=== PATIENT | female | born 1960 | race Caucasian/White ===

== ENCOUNTER 2018-08-07 09:10 | Outpatient (REF) | payer OTHER, SELFPAY | END 2018-08-07 09:30 | LOC: LBN 09:10 | PROVIDERS: PCP Nurse Practitioner; Visit Provider Nurse Practitioner | DX: N39.0 Urinary tract infection, site not specified (principal) | CPT/HCPCS: 87086 ==

== ENCOUNTER 2018-08-09 11:31 | Outpatient (CLI) | payer OTHER, SELFPAY ==
--- NOTE | 2018-08-09 09:20 | DI.CT_ITS ---
SYMPTOM/DIAGNOSIS: PELVIC PAIN, HEMATURIA, H/O RENAL CALCULI, R10.2, Z87.442, R31.[address]: Routine examination was performed. Comparison is made with 03/11/16. Scarring or atelectasis is seen in the lung bases.There is again seen a well circumscribed nodule in the left lower lobe laterally. This was present on the prior examination from 10/18/15. Lack of IV contrast does limit evaluation of the abdominal and pelvic organs. The unenhanced liver, spleen, gallbladder, bile ducts, pancreas and adrenal glands are unremarkable. There is a 2 mm. non obstructing stone in the mid pole of the right kidney. No ureterolithiasis or hydronephrosis is identified. In the left kidney, there is a 2 mm. non obstructing stone seen in the mid pole. There is a rounded density seen in the lower pole of the left kidney with peripheral calcifications. This is unchanged compared to prior examinations including one done 02/05/14. There is a new 0.4 cm. calcification in the left pelvis proximal to the ureterovesicular junction which may represent a distal ureteral stone. No significant hydronephrosis is present. The urinary bladder is intact. The reproductive organs are unremarkable. There is atherosclerosis of the abdominal aorta but no aneurysmal dilatation is present. No significant abdominal or pelvic adenopathy, ascites or pneumoperitoneum is present. There is diverticulosis of the colon but no evidence of acute diverticulitis. No findings to suggest an acute appendicitis are present. No evidence of bowel obstruction or inflammation is seen. Age appropriate degenerative changes are seen in the spine. IMPRESSION: 1. 0.4 cm. calcification in the left pelvis just proximal to the ureterovesicular junction suspicious for a distal ureteral stone. No significant hydronephrosis is seen. 2. Bilateral nephrolithiasis. 3. Colonic diverticulosis but no evidence of acute diverticulitis.
== END 2018-08-09 11:51 ==
PROVIDERS: PCP Nurse Practitioner; Visit Provider Nurse Practitioner
DX: R10.2 Pelvic and perineal pain (principal); N20.1 Calculus of ureter; N20.0 Calculus of kidney; K57.30 Diverticulosis of large intestine without perforation or abscess without bleeding; Z87.442 Personal history of urinary calculi
CPT/HCPCS: 74176

== ENCOUNTER 2018-08-24 21:54 | Emergency (ER) | payer OTHER, SELFPAY ==
[2018-08-24 21:59] VITALS: BP 167/94; PULSE 94; RESP 20; TEMP 37.2; O2SAT 97
--- NOTE | 2018-08-24 22:15 | W.ED.GENAD ---
Discharge Plan Disposition Patient Disposition: HOME Condition: Good Discharge Details Chief Complaint: Urinary Clinical Impression: Left ureteral calculus Primary Care Provider: Neela Orantes ED Provider: Cash Moralez Home Meds and New Rx's Prescriptions: New phenazopyridine [Pyridium] 100 mg tablet 100 mg PO TID Qty: 6 RF: 0 Continued Flovent HFA 110 mcg/actuation HFA aerosol inhaler 220 mcg Inhalation BID Qty: 3 RF: 3 albuterol sulfate 90 mcg/actuation HFA aerosol inhaler 2 puff Inhalation Q4H PRN Qty: 1 RF: 12 ketorolac 10 mg tablet RF: 0 No Action cbd oil RF: 0 Discharge Instructions Additional Instructions: Please berry picker your Toradol prescription and get your Pyridium prescription filled. Do not take other nonsteroidal medications while taking Toradol. Contact Dr. Samayoa's office in the morning. Return to the ED for increasing pain, vomiting, fever. Referrals: Renato Samayoa MD [ [facility] STAFF PHYSICIAN] - Medical Decision Making Patient presenting with symptoms likely related to her known kidney stone. She is not febrile. She has urinary urgency, frequency, suprapubic pressure leading to nausea. She does not want narcotics or antiemetics. She did agree to trying Pyridium to see if it helps with the urinary symptoms. Urinalysis was obtained. Urinalysis x2 attempts were contaminated. Given that she is not febrile and looks well I doubt that she has an infection. She does not want a straight cath urine. Pyridium did not help a lot. She agreed to an injection of Toradol. She will then berry picker prescription for Pyridium and Toradol tomorrow and contact urology again in the morning. Medical Records Medical records reviewed: Yes I reviewed the patient's medical records. Lab Data Lab results reviewed: Yes I reviewed the patient's lab results. HPI General Mode of arrival: ambulatory. Date/Time Provider Initiated Documentation: 08/24/18 22:12. Limitations to Documentation: no limitations. Information obtained by: patient. HPI Narrative: Patient presents to ED with complaints of suprapubic pressure, frequent urination, some left flank discomfort. She is also having nausea and dry heaves but not vomiting. She has a known left distal ureteral stone. She is supposed to be going to the OR next week. The last few days that pressure and frequent urination has really been bothering her. She has been using nonsteroidals and was supposed to be picking up Toradol from the pharmacy that urology prescribed but has not picked it up. She denies any fever. She feels that if she can get the discomfort to go away the nausea will go away. She does not want narcotics or antiemetics because they messed with her head. Related Data Home Medications Medication Instructions Recorded Confirmed Cbd Oil 01/09/18 08/17/18 albuterol sulfate HFA 90 2 puff INHALATION Q4H PRN #1 unit 08/07/18 08/24/18 mcg/actuation aerosol inhaler fluticasone 110 mcg/actuation HFA 220 mcg INHALATION BID #3 inhaler 08/07/18 08/24/18 aerosol inhaler ketorolac 08/25/18 08/25/18 phenazopyridine [Pyridium] 100 mg PO TID #6 tab 08/25/18 Previous Rx's Medication Instructions Recorded albuterol sulfate HFA 90 2 puff INHALATION Q4H PRN #1 unit 08/07/18 mcg/actuation aerosol inhaler fluticasone 110 mcg/actuation HFA 220 mcg INHALATION BID #3 inhaler 08/07/18 aerosol inhaler phenazopyridine [Pyridium] 100 mg PO TID #6 tab 08/25/18 Allergies Allergy/AdvReac Type Severity Reaction Status Date / Time Sulfa (Sulfonamide Allergy Unknown Rash Unverified 08/24/18 22:05 Antibiotics) morphine AdvReac Severe Psychosis Unverified 08/24/18 22:05 codeine AdvReac Intermediate jittery Unverified 08/24/18 22:05 General Stated Complaint: Urinary KLARISSA: 3 Review of Systems Constitutional Denies chills, Denies fever(s), Denies headache(s), Denies malaise and Denies weakness ENT Denies headache(s) and Denies neck pain Cardiovascular Denies chest pain, Denies diaphoresis, Denies syncope, Denies edema, Denies lightheadedness and Denies dyspnea Respiratory Denies cough, Denies dyspnea and Denies wheezing Gastrointestinal Reports abdominal pain, Reports nausea and Denies vomiting Genitourinary Reports urinary frequency, Reports dysuria, Reports pelvic pain (suprapubic), Reports flank pain and Reports urinary urgency Musculoskeletal Reports back pain, Denies neck pain and Denies numbness Integumentary/Breasts Denies erythema and Denies rash Neurologic Denies syncope, Denies headache(s), Denies numbness and Denies weakness Allergic/Immunologic Denies wheezing [facility] Medical History Mild intermittent reactive airway disease (Chronic 07/08/15) Nephrolithiasis (Chronic) GERD (gastroesophageal reflux disease) (Chronic) Surgical History H/O breast augmentation (Inactive) History of section (Inactive) Social History Smoking/Tobacco Use Status: Current every day Exam Const General: cooperative, uncomfortable and no acute distress Orientation: alert and oriented x3 HENMT Head: normocephalic and atraumatic Neck Neck: normal visual inspection, trachea midline and supple Resp Effort & Inspection: normal respiratory effort Auscultation: clear to auscultation bilaterally Cardio Rate: regular rate Rhythm: regular rhythm Heart Sounds: S1 normal and S2 normal GI Inspection: normal to inspection Palpation: soft, no guarding and nontender Back/Spine/Pelvis Back: no CVA tenderness Neuro General: alert, oriented x3, no focal motor deficits and CN's II-XI intact bilaterally Extrem General: no clubbing, cyanosis or edema Course Vital Signs Temperature 98.9 F 08/24/18 21:59 Pulse 94 H 08/24/18 21:59 Respiratory Rate 20 08/24/18 21:59 Blood Pressure 167/94 H 08/24/18 21:59 Pulse Oximetry 97 08/24/18 21:59 Temperature 98.9 F 08/24/18 21:59 Temperature Source Temporal Artery Scan 08/24/18 21:59 Pulse 94 H 08/24/18 21:59 Respiratory Rate 20 08/24/18 21:59 Respiratory Effort Non-Labored 08/24/18 21:59 Blood Pressure 167/94 H 08/24/18 21:59 Blood Pressure Position Sitting 08/24/18 21:59 Pulse Oximetry 97 08/24/18 21:59 Oxygen Delivery Method Room Air 08/24/18 21:59 Oxygen Flow Rate 0 08/24/18 21:59 Pain Level 7 08/24/18 22:05
[2018-08-24 22:31] LABS: Bilirubin Negative (Negative); Blood Small (Negative); Clarity Clear; Glucose Negative (Negative); Ketones Negative (Negative); Leukocyte Esterase Small (Negative); Nitrite Negative (Negative); Urobilinogen 0.2 EU/dL (Up TO 0.2)
[2018-08-24 22:45] LABS: Bacteria Few HPF (Negative); C & S Indicated? No/Sq. Contamination; Casts Negative LPF (Negative); Crystals Negative HPF (Negative); Epithelial Cells Many HPF (Negative); Mucus Negative (Negative); Other Cells Few Renal (Negative); WBC 20-50 HPF (0-5)
[2018-08-24] MEDS: Phenazopyridine 200 MG TAB PO (23:21)
[2018-08-24 23:34] LABS: Bacteria Moderate HPF (Negative); C & S Indicated? No/Sq. Contamination; Casts Negative LPF (Negative); Crystals Negative HPF (Negative); Epithelial Cells Many HPF (Negative); Mucus Negative (Negative); Other Cells Few Renal (Negative); WBC 20-50 HPF (0-5)
--- NOTE | 2018-08-24 23:58 | ED.GENADUL_ITS ---
Discharge Plan Disposition Patient Disposition: HOME Condition: Good Discharge Details Chief Complaint: Urinary Clinical Impression: Left ureteral calculus Primary Care Provider: Neela Orantes ED Provider: Cash Moralez Home Meds and New Rx's Prescriptions: New phenazopyridine [Pyridium] 100 mg tablet 100 mg PO TID Qty: 6 RF: 0 Continued Flovent HFA 110 mcg/actuation HFA aerosol inhaler 220 mcg Inhalation BID Qty: 3 RF: 3 albuterol sulfate 90 mcg/actuation HFA aerosol inhaler 2 puff Inhalation Q4H PRN Qty: 1 RF: 12 ketorolac 10 mg tablet RF: 0 No Action cbd oil RF: 0 Discharge Instructions Additional Instructions: Please machine operator picker your Toradol prescription and get your Pyridium prescription filled. Do not take other nonsteroidal medications while taking Toradol. Contact Dr. Samayoa's office in the morning. Return to the ED for increasing pain, vomiting, fever. Referrals: Renato Samayoa MD [ [facility] STAFF PHYSICIAN] - Medical Decision Making Patient presenting with symptoms likely related to her known kidney stone. She is not febrile. She has urinary urgency, frequency, suprapubic pressure leading to nausea. She does not want narcotics or antiemetics. She did agree to trying Pyridium to see if it helps with the urinary symptoms. Urinalysis was obtained. Urinalysis x2 attempts were contaminated. Given that she is not febrile and looks well I doubt that she has an infection. She does not want a straight cath urine. Pyridium did not help a lot. She agreed to an injection of Toradol. She will then machine operator picker prescription for Pyridium and Toradol tomorrow and contact urology again in the morning. Medical Records Medical records reviewed: Yes I reviewed the patient's medical records. Lab Data Lab results reviewed: Yes I reviewed the patient's lab results. HPI General Mode of arrival: ambulatory . Date/Time Provider Initiated Documentation: 08/24/18 22:12 . Limitations to Documentation: no limitations . Information obtained by: patient . HPI Narrative: Patient presents to ED with complaints of suprapubic pressure, frequent urination, some left flank discomfort. She is also having nausea and dry heaves but not vomiting. She has a known left distal ureteral stone. She is supposed to be going to the OR next week. The last few days that pressure and frequent urination has really been bothering her. She has been using nonsteroidals and was supposed to be picking up Toradol from the pharmacy that urology prescribed but has not picked it up. She denies any fever. She feels that if she can get the discomfort to go away the nausea will go away. She does not want narcotics or antiemetics because they messed with her head. Related Data Home Medications Medication Instructions Recorded Confirmed Cbd Oil 01/09/18 08/17/18 albuterol sulfate HFA 90 2 puff INHALATION Q4H PRN #1 unit 08/07/18 08/24/18 mcg/actuation aerosol inhaler fluticasone 110 mcg/actuation HFA 220 mcg INHALATION BID #3 inhaler 08/07/18 08/24/18 aerosol inhaler ketorolac 08/25/18 08/25/18 phenazopyridine [Pyridium] 100 mg PO TID #6 tab 08/25/18 Previous Rx's Medication Instructions Recorded albuterol sulfate HFA 90 2 puff INHALATION Q4H PRN #1 unit 08/07/18 mcg/actuation aerosol inhaler fluticasone 110 mcg/actuation HFA 220 mcg INHALATION BID #3 inhaler 08/07/18 aerosol inhaler phenazopyridine [Pyridium] 100 mg PO TID #6 tab 08/25/18 Allergies Allergy/AdvReac Type Severity Reaction Status Date / Time Sulfa (Sulfonamide Allergy Unknown Rash Unverified 08/24/18 22:05 Antibiotics) morphine AdvReac Severe Psychosis Unverified 08/24/18 22:05 codeine AdvReac Intermediate jittery Unverified 08/24/18 22:05 General Stated Complaint: Urinary KLARISSA: 3 Review of Systems Constitutional Denies chills, Denies fever(s), Denies headache(s), Denies malaise and Denies weakness ENT Denies headache(s) and Denies neck pain Cardiovascular Denies chest pain, Denies diaphoresis, Denies syncope, Denies edema, Denies lightheadedness and Denies dyspnea Respiratory Denies cough, Denies dyspnea and Denies wheezing Gastrointestinal Reports abdominal pain, Reports nausea and Denies vomiting Genitourinary Reports urinary frequency, Reports dysuria, Reports pelvic pain (suprapubic), Reports flank pain and Reports urinary urgency Musculoskeletal Reports back pain, Denies neck pain and Denies numbness Integumentary/Breasts Denies erythema and Denies rash Neurologic Denies syncope, Denies headache(s), Denies numbness and Denies weakness Allergic/Immunologic Denies wheezing [facility] Medical History Mild intermittent reactive airway disease (Chronic 07/08/15) Nephrolithiasis (Chronic) GERD (gastroesophageal reflux disease) (Chronic) Surgical History H/O breast augmentation (Inactive) History of section (Inactive) Social History Smoking/Tobacco Use Status: Current every day Exam Const General: cooperative, uncomfortable and no acute distress Orientation: alert and oriented x3 HENMT Head: normocephalic and atraumatic Neck Neck: normal visual inspection, trachea midline and supple Resp Effort & Inspection: normal respiratory effort Auscultation: clear to auscultation bilaterally Cardio Rate: regular rate Rhythm: regular rhythm Heart Sounds: S1 normal and S2 normal GI Inspection: normal to inspection Palpation: soft, no guarding and nontender Back/Spine/Pelvis Back: no CVA tenderness Neuro General: alert, oriented x3, no focal motor deficits and CN's II-XI intact bilaterally Extrem General: no clubbing, cyanosis or edema Course Vital Signs Temperature 98.9 F 08/24/18 21:59 Pulse 94 H 08/24/18 21:59 Respiratory Rate 20 08/24/18 21:59 Blood Pressure 167/94 H 08/24/18 21:59 Pulse Oximetry 97 08/24/18 21:59 Temperature 98.9 F 08/24/18 21:59 Temperature Source Temporal Artery Scan 08/24/18 21:59 Pulse 94 H 08/24/18 21:59 Respiratory Rate 20 08/24/18 21:59 Respiratory Effort Non-Labored 08/24/18 21:59 Blood Pressure 167/94 H 08/24/18 21:59 Blood Pressure Position Sitting 08/24/18 21:59 Pulse Oximetry 97 08/24/18 21:59 Oxygen Delivery Method Room Air 08/24/18 21:59 Oxygen Flow Rate 0 08/24/18 21:59 Pain Level 7 08/24/18 22:05
== END 2018-08-25 00:34 | disposition home or self-care (01) ==
PROVIDERS: Emergency Provider Emergency Medicine; PCP Nurse Practitioner
DX: N21.0 Calculus in bladder (principal); Z87.442 Personal history of urinary calculi
CPT/HCPCS: 96372; 99284; 81003; 81015; J1885

== ENCOUNTER 2018-08-31 15:08 | Observation (INO) | payer OTHER, SELFPAY ==
[2018-08-31] VITALS (16 sets, daily range): BP systolic 104–167; BP diastolic 64–101; PULSE 56–83; RESP 11–18; TEMP 36.4–37.9; O2SAT 93–97
[2018-08-31] MEDS: Lactated Ringers 1,000 ML 80 ML IV ×2 (09:18→16:47)
[2018-08-31] MEDS: Lidocaine 2% Jelly 6 ML SYR (11:01)
[2018-08-31] MEDS: Omnipaque 300 MG/ML 50 ML BTL (11:05)
--- NOTE | 2018-08-31 11:19 | W.PM.DSUDISC ---
Discharge Plan Disposition Patient Disposition: HOME Condition: Stable Discharge Details Reason For Visit: (L) URETERAL STONE Attending Provider: Renato Samayoa Primary Care Provider: Neela Orantes Home Meds and New Rx's Prescriptions: No Action phenazopyridine [Pyridium] 200 mg tablet 200 mg PO TID PRN (Reason: pain) Qty: 14 RF: 0 cbd oil 1 ea Topical PRN PRNRF: 0 Flovent HFA 110 mcg/actuation HFA aerosol inhaler 220 mcg Inhalation BID Qty: 3 RF: 3 albuterol sulfate 90 mcg/actuation HFA aerosol inhaler 2 puff Inhalation Q4H PRN Qty: 1 RF: 12 ketorolac 10 mg tablet 10 mg PO Q6H PRN PRNRF: 0 sodium chloride 3 % Mist 3 spray Intranasal PRN PRNRF: 0 Discharge Instructions Additional Instructions: F/U 4 to 6 weeks with renal US Stand Alone Forms: [facility] ([facility]) Activity:: Activity as Tolerated Diet:: As Tolerated Discharge Orders Discharge Orders: Discharge Order (Routine); Ordered 08/31/18 Ordered By: Renato Samayoa DS: Diagnosis Discharge Diagnosis (1) Left ureteral stone: Status: Acute
--- NOTE | 2018-08-31 11:20 | DI.RAD_ITS ---
SYMPTOMS/DIAGNOSIS: LT URETERAL STONE RETROGRADE IN OR: Fluoroscopy Time: 8.7 sec, 1.22 mGy Fluoroscopy was utilized by Dr. Samayoa during retrograde evaluation of the left renal collecting system. Please refer to the procedure report for complete details.
[2018-08-31] MEDS: Phenazopyridine 200 MG TAB PO ×2 (11:48→19:42)
[2018-08-31] MEDS: Tamsulosin 0.4 MG CAPCR PO (12:18)
[2018-08-31] MEDS: fentaNYL 100 MCG/2 ML VIAL ×2 (12:25→12:30)
[2018-08-31] MEDS: fentaNYL 100 MCG/2 ML VIAL 50 MCG IVP (13:28)
--- NOTE | 2018-08-31 15:32 | HPE_ITS ---
Date of service: 08/31/18 Time of Service: 15:21 Assessment and Plan (1) Left ureteral stone: Current visit: Yes Status: Acute We reviewed her hospitalization from 4 years ago, and it looks like she was treated with small doses of Dilaudid along with Toradol. We will continue with [id number] Toradol, and I have offered her a Dilaudid [employer] so that she can use small doses when she feels the need we will will continue with tamsulosin to help reduce ureteral spasms. We will use as needed belladonna and opium suppositories for bladder spasms. Usually the ureteral discomfort associated with ureteral procedures improves within 24-48 hours. I would expect this will be the case for Mrs. Medina. History of Present Illness Chief Complaint: Left ureteral stone Narrative: This is a 58-year-old who has a past history of urolithiasis. 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 About 4 years ago, she had a left distal ureteral stone. That stone was in the ureter that drained the upper pole calyx. She underwent ureteroscopy and stent placement. After the stent was removed, she developed severe pain that required 48 hours of hospitalization. Her pain was ultimately controlled with IV Dilaudid along with IV Toradol. She presented to the emergency room several weeks ago with a left lower quadrant pain and the feeling of needing to void. She was again found to have a stone in the left distal ureter the drain the upper pole. Her stone had not progressed with conservative management, so she was brought to the operating room today for ureteroscopy. Given her difficulty with the stent in the past, we decided to try to leave her stent the in the postoperative. We were able to pass the ureteroscope and remove her stone in 1 passage, but postoperatively she has had pain that has not been well controlled with IV Tor adol, muscle relaxers such as Flomax and belladonna, fentanyl and Pyridium. She is being admitted for postoperative pain control. Her current pain is described as in the left lower quadrant radiating up to the back. She is having urinary frequency and her pain worsens when she voids. She has nausea that she believes is related to her uncontrolled pain. Review of Systems Constitutional Denies chills and Denies fever(s) Eyes Denies change in vision ENT Reports nasal congestion and Reports post nasal drip Cardiovascular Denies chest pain, Denies syncope and Denies irregular heart rhythm Respiratory Denies cough and Denies hemoptysis Gastrointestinal Reports nausea Genitourinary Reports urinary frequency Musculoskeletal Reports back pain Neurologic Denies syncope and Denies seizure-like activity Hematologic/Lymphatic Denies easy bleeding and Denies easy bruising PFS Social History Smoking/Tobacco Use Status: Former Tobacco Use Meds Home Medications Medication Instructions Recorded Confirmed Type Cbd Oil 1 ea TOPICAL PRN PRN 01/09/18 08/17/18 History albuterol sulfate HFA 90 2 puff INHALATION Q4H PRN #1 unit 08/07/18 08/31/18 Rx mcg/actuation aerosol inhaler fluticasone 110 mcg/actuation HFA 220 mcg INHALATION BID #3 inhaler 08/07/18 08/31/18 Rx aerosol inhaler ketorolac 10 mg PO Q6H PRN PRN 08/25/18 08/31/18 History phenazopyridine 200 mg tablet 200 mg PO TID PRN #14 tab 08/28/18 08/31/18 Rx sodium chloride 3 spray INTRANASAL PRN PRN 08/31/18 08/31/18 History Allergies Allergy/AdvReac Type Severity Reaction Status Date / Time Sulfa (Sulfonamide Allergy Unknown Rash Unverified 08/31/18 08:52 Antibiotics) morphine AdvReac Severe Psychosis Unverified 08/31/18 08:52 codeine AdvReac Intermediate jittery Unverified 08/31/18 08:52 Exam Const General: cooperative and in distress Orientation: alert and awake Neck Neck: supple Resp Effort & Inspection: normal respiratory effort Auscultation: clear to auscultation bilaterally Cardio Rate: regular rate Rhythm: regular rhythm GI Inspection: normal to inspection Palpation: soft Psych Speech and Movement: restless Mood: anxious mood Results Last Vital Signs Temp 37.8 C H 08/31/18 14:14 Pulse 70 08/31/18 14:14 Resp 18 08/31/18 14:14 BP 142/85 H 08/31/18 14:14 Pulse Ox 94 L 08/31/18 14:14
[2018-08-31] MEDS: Normal Saline Flush 10 ML SYR IV ×3 (16:47→23:23)
--- NOTE | 2018-08-31 17:02 | ROE_ITS ---
DATE OF OPERATION: August 31, 2018 PREOPERATIVE DIAGNOSIS: Left ureteral stone. POSTOPERATIVE DIAGNOSIS: Left ureteral stone. PROCEDURE: Cystoscopy, left retrograde pyelogram, left rigid ureteroscopy of upper pole ureter, ston e extraction. SURGEON: Renato Samayoa M.D. ANESTHESIA: General. COMPLICATIONS: None. ESTIMATED BLOOD LOSS: Minimal. HISTORY: This is a 58-year-old woman who has a history of kidney stones. In the past, she was ident ified as having a duplicated collecting system on the left side. She had a stone in the ureter that drained the upper pole calyx. She required ureteral dilation and a ureteral stent placement. She flanagan d quite a bit of pain from her stent and following the stent removal. She would like to avoid a sten t if at all possible. She presented to the Emergency Room with left lower quadrant pain. She was found to have a 4-mm ston e in the left distal ureter. She has had irritative voiding symptoms with sensations of needing to u rinate. She has not passed her stone with conservative management. She presents now for stone manip ulation. OPERATIVE REPORT: The patient was brought to the Operating Room on 08/31/18. After successful inducti on of general anesthesia, she was placed in the dorsal lithotomy position. Her genitalia was prepped and draped. A 22 Slovenian rigid cystoscope was passed through the urethra into the bladder. The bladder was inspec josie with a 30-degree lens. On the right side, a single ureteral orifice was identified. On the left side, two orifices were hill ntified. The orifice to the ureter draining the upper pole was accessed with a 6 Slovenian access catheter. A re trograde film was obtained and a filling defect was identified in the distal ureter. This correspond ed to our CT findings. We then passed a Glidewire through the access catheter and we were able to maneuver the wire up the u pper pole ureter. We removed the cystoscope and were able to pass a ureteroscope through the urethra into the bladder. We advanced the scope up the left ureter and visualized her stone. The stone was grasped in a Gemin i stone basket and removed in its entirety. The stone was sent to Pathology for chemical analysis. Since we did not need to dilate the ureter, w e elected not to place ureteral stent. She tolerated this procedure with no complications. She was taken to the Recovery Room in stable con dition.
[2018-08-31] MEDS: Ketorolac 15 MG/ML VIAL IM ×2 (18:18→23:31)
--- NOTE | 2018-08-31 19:18 | NUR.NOTE ---
Nursing Note: Patient arrived via recliner from PACU and was admitted to room 212 at 1611
[2018-09-01 00:05] VITALS: BP 95/64; PULSE 77; RESP 16; TEMP 36.5; O2SAT 92
[2018-09-01 01:53] VITALS: BP 100/65; PULSE 62; RESP 17; TEMP 36.2; O2SAT 94
[2018-09-01] MEDS: Lactated Ringers 1,000 ML 80 ML IV ×2 (03:12→16:11)
[2018-09-01 03:13] VITALS: BP 118/65; PULSE 65; RESP 18; TEMP 36.6; O2SAT 94
[2018-09-01] MEDS: Ketorolac 15 MG/ML VIAL IM ×4 (05:25→23:47)
[2018-09-01] MEDS: Normal Saline Flush 10 ML SYR IV ×3 (05:26→18:08)
[2018-09-01 07:30] VITALS: BP 117/60; PULSE 66; RESP 18; TEMP 37.3; O2SAT 91
[2018-09-01] MEDS: Mometasone 220 MCG 14 DOSE INHALER 2 PUFF IH ×2 (07:52→20:09)
--- NOTE | 2018-09-01 07:58 | W.PM.PROGNOT ---
Date of Service Date of service: 09/01/18 Time of Service: 07:58 Assessment and Plan (1) Left ureteral stone: Current visit: Yes Status: Acute She is responding to hydration and analgesia. I have encouraged her to use her antiemetic medication as well. I would expect that she will be able to transition to oral medications and will be discharged in the next 24 hours or so. Subjective Interval history since last seen: Chief complaint: Postoperative day #1 She was admitted postoperatively for pain control. She has improved, but tells me her pain is still had a 4 out of 10. She has less dysuria and less urgency. She is using IV Toradol. She is nauseated but not vomiting. Exam Narrative Exam Narrative: She looks more comfortable than she did in the postanesthesia care unit She does not appear septic or toxic Vital signs are documented elsewhere in the chart Objective Objective Clinical Data: Vital Signs Temperature 36.6 C 09/01/18 03:13 Temperature Source Tympanic 09/01/18 03:13 Pulse 65 09/01/18 03:13 Pulse Rhythm Regular 09/01/18 03:18 Respiratory Rate 18 09/01/18 03:13 Respiratory Effort 09/01/18 03:18 Respiratory Depth Normal 09/01/18 03:18 Respiratory Pattern Normal 09/01/18 03:18 Blood Pressure 118/65 09/01/18 03:13 Pulse Oximetry 94 L 09/01/18 03:13 Respiratory End-tidal CO2 33 08/31/18 12:40 Oxygen Delivery Method Room Air 09/01/18 03:13 Oxygen Flow Rate 0 09/01/18 03:13 Pain Level 2 09/01/18 06:25 Intake & Output 08/31/18 08/31/18 09/01/18 11:59 23:59 11:59 Intake Total 640 / 2104.667 1464.667 / 2104.667 807.334 / 807.334 Output Total 475 / 475 500 / 500 Balance 640 / 1629.667 989.667 / 1629.667 307.334 / 307.334 Weight 57.5 kg Intake: IV 600 / 1284.667 684.667 / 1284.667 657.334 / 657.334 Oral 40 / 820 780 / 820 150 / 150 Output: Urine 475 / 475 500 / 500 Other: Urine Color [place] Urine Appearance Clear Clear Urine Odor Normal Comment Pain reports less dysuria with voiding this time. Emesis Description None None Voiding Methods Toilet Toilet
[2018-09-01] MEDS: Phenazopyridine 200 MG TAB PO ×3 (08:52→20:09)
[2018-09-01] MEDS: Tamsulosin 0.4 MG CAPCR PO (08:52)
--- NOTE | 2018-09-01 09:38 | PHARADMIT ---
Admission Pharmacy Clinical Review URETERAL STONE Code Status Full Code Current Weight Wgt- 57.5 kg Renally Cleared and Narrow Therapeutic Index Meds CrCl~69 mL/min Meds-OK QTc Value / Action Taken NA BP Control, Fever BP-118/65 Tmax- 37.9C Electrolytes reviewed na DVT Prophylaxis NONE Opiate Usage / Scheduled Bowel Regimen Ordered Yes No Plt/SCr for Heparin / Enoxaparin na INR for Warfarin na H/H stable, WBC/Bands na Antibiotic appropriateness none Cultures and Sensitivities none Surgical ABX d/c within 24 hr na DM control / Insulin Dosing NA Heart Failure (Check EF%) (SABA's, B-Block, Diuretics) none IV to PO Switch No Home Meds Reviewed Yes Home Meds Not Ordered CBD Oil, Medrol Comments
--- NOTE | 2018-09-01 10:01 | PDOC.CMIN ---
- If Service Date Differs Date of service: 09/01/18 Time of Service: 10:01 Care Management Initial Assess REASON FOR HOSPITALIZATION:: (L) Ureteral stone PAST MEDICAL HISTORY/PAST SURGICAL HISTORY:: Trochanteric bursitis of (L) hip, Sciatica, Patellar tendinitis of (L) Knee, Mild intermittent reactive airway disease, Knee pain, Arthralgia of (L) acromioclavicular joint, Adhesive capsulitis of (L) shoulder, Ureteral stent removal, Nephrolithiasis, GERD, Menopause, H/O breast augmentation, Smoker PREVIOUS FUNCTIONAL STATUS/SOCIAL/FAMILY SUPPORTS:: Padma resides with her SO Pierre in [place], she states that she has two children, one whom resides in [place] and one in [place]. 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 Padma is independent at baseline, she drives, and manages ADL's CURRENT FUNCTIONAL STATUS:: Currently Padma is sitting up in her chair when this scientific writer visits this morning. She is pleasant and receptive to discussion. ADVANCE DIRECTIVES:: None on file Has patient been provided with information about the portal?: Yes Did the patient sign up for the portal?: No (already signed up) CODE STATUS:: Full Code INSURANCE COVERAGE / FINANCIAL ISSUES:: [employer] CURRENT HOME/COMMUNITY SERVICES/EQUIPMENT:: Currently Padma has no services or medical equipment in the community. PRIMARY CARE PHYSICIAN:: Neela gardiner POTENTIAL DISCHARGE NEEDS:: F/U appointment with Dr. Samayoa PATIENT/FAMILY EDUCATION NEEDS:: Review DC instructions, any limitations, and ongoing DC planning discussion. Discuss 'Ask Me Three' ANTICIPATED BARRIERS TO DISCHARGE:: None identified at this time. TRANSPORTATION:: via private vehicle with [facility] PLAN:: Padma will return home with no anticipated services. She will F/U with Dr. Samayoa and plan of care as prescribed. Padma's SO Pierre to transport her when ready.
--- NOTE | 2018-09-01 10:08 | INITIAL_ITS ---
- If Service Date Differs Date of service: 09/01/18 Time of Service: 10:01 Care Management Initial Assess REASON FOR HOSPITALIZATION:: (L) Ureteral stone PAST MEDICAL HISTORY/PAST SURGICAL HISTORY:: Trochanteric bursitis of (L) hip, Sciatica, Patellar tendinitis of (L) Knee, Mild intermittent reactive airway disease, Knee pain, Arthralgia of (L) acromioclavicular joint, Adhesive capsulitis of (L) shoulder, Ureteral stent removal, Nephrolithiasis, GERD, M enopause, H/O breast augmentation, Smoker PREVIOUS FUNCTIONAL STATUS/SOCIAL/FAMILY SUPPORTS:: Padma resides with her SO Pierre in [place], she states that she has two children, one whom resides in [place] and one in [place]. 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 Padma is independent at baseline, she drives, and manages ADL's CURRENT FUNCTIONAL STATUS:: Currently Padma is sitting up in her chair when this keno writer/runner visits this morning. She is pleasant and receptive to discussion. ADVANCE DIRECTIVES:: None on file Has patient been provided with information about the portal?: Yes Did the patient sign up for the portal?: No (already signed up) CODE STATUS:: Full Code INSURANCE COVERAGE / FINANCIAL ISSUES:: [employer] plans [employer] CURRENT HOME/COMMUNITY SERVICES/EQUIPMENT:: Currently Padma has no services or medical equipment in the community. PRIMARY CARE PHYSICIAN:: Neela gardiner POTENTIAL DISCHARGE NEEDS:: F/U appointment with Dr. Samayoa PATIENT/FAMILY EDUCATION NEEDS:: Review DC instructions, any limitations, and ongoing DC planning discussion. Discuss 'Ask Me Three' ANTICIPATED BARRIERS TO DISCHARGE:: None identified at this time. TRANSPORTATION:: via private vehicle with [facility] Jay PLAN:: Padma will return home with no anticipated services. She will F/U with Dr. Samayoa and plan of care as prescribed. Padma's SO Pierre to transport her when ready.
--- NOTE | 2018-09-01 15:42 | CHAPLAIN ---
Padma was in bed when I visited. Her SO, Pierre, was there and getting ready to leave. Padma was feeling better she said, after passing a stone, but was tired and wiped out. This has happened before to her, she explained. Padma works at [employer], and I visited with Padma's mom when she on was receiving hospice care at [facility], and got to now Padma then. She asked for prayers and good wishes.
[2018-09-01 16:43] VITALS: BP 101/63; PULSE 54; RESP 17; TEMP 37.2; O2SAT 93
--- NOTE | 2018-09-01 18:23 | NUR.NOTE ---
Nursing Note: Patients pain and anxiety has waned as the day has progressed, she had a visit from her spouse this afternoon, and they walked the unit together, patient has only used the ivpca pump for one dose today, and that was at 745 am this morning while Dr. Samayoa was present and assessing her. she continues to spontaneously void, and with last recorded void, denies and urinary symptoms. Patient was resting comfortably with call roldan in reach
[2018-09-02] MEDS: Lactated Ringers 1,000 ML 80 ML IV (04:09)
[2018-09-02 04:15] VITALS: BP 113/70; PULSE 62; RESP 18; TEMP 37.4; O2SAT 92
[2018-09-02] MEDS: Ketorolac 15 MG/ML VIAL IM (05:38)
[2018-09-02 07:49] VITALS: BP 130/79; PULSE 63; RESP 16; TEMP 37.9; O2SAT 92
[2018-09-02] MEDS: Phenazopyridine 200 MG TAB PO (08:40)
[2018-09-02] MEDS: Tamsulosin 0.4 MG CAPCR PO (08:40)
[2018-09-02] MEDS: Acetaminophen 325 MG TAB 650 MG PO (08:41)
[2018-09-02] MEDS: Mometasone 220 MCG 14 DOSE INHALER 2 PUFF IH (09:25)
--- NOTE | 2018-09-02 09:36 | W.PM.PROGNOT ---
Date of Service Date of service: 09/02/18 Time of Service: 09:37 Assessment and Plan (1) Left ureteral stone: Current visit: Yes Status: Acute We will discharge her home. She is already scheduled for follow-up in a month for a renal ultrasound and stone analysis Subjective Interval history since last seen: Chief complaint: Ureteral stone She is relatively comfortable with very few episodes of burning with urination. She feels comfortable enough to go home at this point. Exam Narrative Exam Narrative: She is in no current distress. She does not appear septic or toxic. Objective Objective Clinical Data: Vital Signs Temperature 37.9 C H 09/02/18 07:49 Temperature Source Tympanic 09/02/18 07:49 Pulse 63 09/02/18 07:49 Pulse Rhythm Regular 09/02/18 08:43 Respiratory Rate 16 09/02/18 07:49 Respiratory Effort Non-Labored 09/02/18 08:43 Respiratory Depth Normal 09/02/18 08:43 Respiratory Pattern Normal 09/02/18 08:43 Blood Pressure 130/79 09/02/18 07:49 Pulse Oximetry 92 L 09/02/18 07:49 Respiratory End-tidal CO2 33 08/31/18 12:40 Oxygen Delivery Method Room Air 09/02/18 07:49 Oxygen Flow Rate 0 09/02/18 07:49 Pain Level 0 09/02/18 07:15 Comment 09/02/18 04:15 Intake & Output 09/01/18 09/01/18 09/02/18 11:59 23:59 11:59 Intake Total 1007.334 / 2007.667 1001.333 / 2007.667 956 / 956 Output Total 700 / 1650 950 / 1650 900 / 900 Balance 307.334 / 358.667 51.333 / 358.667 56 / 56 Intake: IV 657.334 / 1398.667 741.333 / 1398.667 956 / 956 Oral 350 / 610 260 / 610 Output: Urine 700 / 1650 950 / 1650 900 / 900 Other: Urine Color [place] Urine Appearance Clear Clear Clear Urine Odor None None None Comment Patient denies urinary symptoms Patient complained of urgency and a bit burning at the end of her urine. Voiding Methods Toilet Toilet Toilet
--- NOTE | 2018-09-02 09:44 | DSE_ITS ---
Date of service: 09/02/18 Time of Service: 09:39 DS: Diagnosis Discharge Diagnosis (1) Left ureteral stone: Status: Acute Discharge Plan Disposition Patient Disposition: HOME Condition: Stable Discharge Details Reason For Visit: (L) URETERAL STONE Admit Date/Time: 08/31/18 15:08 Admit Provider: Renato Samayoa Attending Provider: Renato Samayoa Primary Care Provider: Neela Orantes Hospital Course Hospital Course: The patient underwent a left ureteroscopy and stone extraction on 08/31/2018. We had planned on doing the procedure as an outpatient, but her pain was not controlled in the postanesthesia unit. She was admitted for pain control. She was treated with IV hydration, [id number] Toradol and as needed Dilaudid injections. Her pain improved over the next 24-36 hours. She is ready to be discharged with oral pain medications. Home Meds and New Rx's Prescriptions: No Action phenazopyridine [Pyridium] 200 mg tablet 200 mg PO TID PRN (Reason: pain) Qty: 14 RF: 0 cbd oil 1 ea Topical PRN PRNRF: 0 Flovent HFA 110 mcg/actuation HFA aerosol inhaler 220 mcg Inhalation BID Qty: 3 RF: 3 albuterol sulfate 90 mcg/actuation HFA aerosol inhaler 2 puff Inhalation Q4H PRN Qty: 1 RF: 12 ketorolac 10 mg tablet 10 mg PO Q6H PRN PRNRF: 0 sodium chloride 3 % Mist 3 spray Intranasal PRN PRNRF: 0 Discharge Instructions Additional Instructions: F/U 4 to 6 weeks with renal US No new meds are needed. She still has oral Pyridium and ketorolac at home as needed. Stand Alone Forms: [facility] ([facility]) Activity:: Activity as Tolerated Equipment/Supplies:: No Equipment Needed Diet:: As Tolerated Discharge Orders Discharge Orders: Discharge Order (Routine); Ordered 09/02/18 Ordered By: Renato Samayoa Exam Narrative Exam Narrative: At the time of discharge, she appears comfortable. Her skin is warm and dry. She does not appear septic or toxic. Vital signs are documented elsewhere in the chart. Her abdomen is soft with no masses. She has no CVA tenderness. She is awake, alert and oriented. DS: Data Vitals/I&O Vitals and I&O: Vital Signs Temperature 37.9 C H 09/02/18 07:49 Temperature Source Tympanic 09/02/18 07:49 Pulse 63 09/02/18 07:49 Pulse Rhythm Regular 09/02/18 08:43 Respiratory Rate 16 09/02/18 07:49 Respiratory Effort Non-Labored 09/02/18 08:43 Respiratory Depth Normal 09/02/18 08:43 Respiratory Pattern Normal 09/02/18 08:43 Blood Pressure 130/79 09/02/18 07:49 Pulse Oximetry 92 L 09/02/18 07:49 Respiratory End-tidal CO2 33 08/31/18 12:40 Oxygen Delivery Method Room Air 09/02/18 07:49 Oxygen Flow Rate 0 09/02/18 07:49 Pain Level 0 09/02/18 07:15 Comment 09/02/18 04:15 Intake & Output 09/01/18 09/01/18 09/02/18 11:59 23:59 11:59 Intake Total 1007.334 / 2007.667 1001.333 / 2007.667 956 / 956 Output Total 700 / 1650 950 / 1650 900 / 900 Balance 307.334 / 358.667 51.333 / 358.667 56 / 56 Intake: IV 657.334 / 1398.667 741.333 / 1398.667 956 / 956 Oral 350 / 610 260 / 610 Output: Urine 700 / 1650 950 / 1650 900 / 900 Other: Urine Color [place] Urine Appearance Clear Clear Clear Urine Odor None None None Comment Patient denies urinary symptoms Patient complained of urgency and a bit burning at the end of her urine. Voiding Methods Toilet Toilet Toilet [facility] Social History Smoking/Tobacco Use Status: Former Tobacco Use
[2018-09-02 10:05] LABS: Source: Ureter
--- NOTE | 2018-09-02 11:24 | PDOC.CMDIS ---
- If Service Date Differs Date of service: 09/02/18 Time of Service: 11:24 LACE Index Scoring Tool - Questions: Length of Stay (in days): 2 Acuity (Admit via E.D.?): No E.D. Visits: 1 - Answers: Total Score: 3 Risk of Readmission: Low Risk Care Management Discharge Reason for Hospitalization: (L) Ureteral stone Discharge Plan: Padma will return home today with no services. She will F/U with Dr. Samayoa and plan of care as prescribed. Padma's SO Pierre to transport. Patient/Family Education Needs: Review DC instructions, any limitations, and discuss 'Ask me Three'
== END 2018-09-02 11:16 | disposition home or self-care (01) ==
LOC: MS 17:52
PROVIDERS: Admitting Provider Urology; PCP Nurse Practitioner; Visit Provider Urology
PROC: 0TC78ZZ Extirpation of Matter from Left Ureter, Via Natural or Artificial Opening Endoscopic (ICD-10-PCS; CPT 74450; principal; 2018-08-31 10:00)
PROC: 0TJ98ZZ Inspection of Ureter, Via Natural or Artificial Opening Endoscopic (ICD-10-PCS; CPT 52351; 2018-08-31 10:00)
DX: G89.18 Other acute postprocedural pain (principal); N20.1 Calculus of ureter; Q63.8 Other specified congenital malformations of kidney
CPT/HCPCS: 52352; 94640; 99225; 99231; 99238; NC; 74420; 82365; G0378; J0690; J1885; J3010; J3490; Q9967

== ENCOUNTER 2018-09-29 00:05 | Outpatient (CLI) | payer OTHER, SELFPAY ==
--- NOTE | 2018-09-29 13:55 | DI.US_ITS ---
SYMPTOMS/DIAGNOSIS: CALCULUS OF URETER, N20.1, ? HYDRONEPHROSIS AFTER URETEROSCOPY RENAL ULTRASOUND: The kidneys are normal in size and shape. There appear to be tiny mid pole calculi bilaterally. These may also have been present on previous CT of 08/09/18. There appears to be slight right hydronephrosis. No left hydronephrosis seen. The urinary bladder unremarkable in appearance with bilateral ureteral jets. CONCLUSION: Question mild hydronephrosis right kidney. Tiny bilateral nonobstructing renal calculi noted.
== END 2018-09-29 00:25 ==
PROVIDERS: PCP Nurse Practitioner; Visit Provider Urology
DX: N20.1 Calculus of ureter (principal); N13.30 Unspecified hydronephrosis
CPT/HCPCS: 76770

== ENCOUNTER 2019-01-02 10:31 | Outpatient (REF) | payer OTHER, SELFPAY ==
[2019-01-03 12:26] LABS: Lyme Ab w Rflx to Lyme Confirm Negative
[2019-01-04 19:05] LABS: Anaplasma phagocytophilum Negative (Negative); B. miyamotoi PCR Negative (Negative); Babesia divergens/MO-1 Negative (Negative); Babesia duncani Negative (Negative); Babesia microti Negative (Negative); Ehrlichia chaffeensis Negative (Negative); Ehrlichia ewingii/canis Negative (Negative); Ehrlichia muris eauclairensis Negative (Negative)
== END 2019-01-02 10:51 ==
LOC: LBN 10:31
PROVIDERS: PCP Nurse Practitioner; Visit Provider Nurse Practitioner
DX: M25.50 Pain in unspecified joint (principal); R53.81 Other malaise; W57.XXXA Bitten or stung by nonvenomous insect and other nonvenomous arthropods, initial encounter; T14.8XXA Other injury of unspecified body region, initial encounter
CPT/HCPCS: 86618; 87798

== ENCOUNTER 2020-12-31 08:56 | Outpatient (REF) | payer OTHER, SELFPAY ==
[2020-12-31 13:54] LABS: ALT 29 U/L (14-59); AST 20 U/L (15-37); Albumin 3.9 g/dL (3.4-5.0); Alkaline Phosphatase 78 U/L (46-116); Anion Gap 9.3 mmol/L (3-11); BUN 19 mg/dL (7-18); Bilirubin, Total 0.5 mg/dL (0.2-1.0); CO2 27.7 mmol/L (21.0-32.0); CREATININE 0.7 mg/dL (0.55-1.02); Calcium 9.5 mg/dL (8.5-10.1); Chloride 106 mmol/L (98-107); Glucose 82 mg/dL (74-106); Potassium 4.2 mmol/L (3.5-5.1); Sodium 143 mmol/L (136-145); Total Protein 6.8 g/dL (6.4-8.2)
[2020-12-31 14:08] LABS: Calculated LDL 160 mg/dL (<100); Cholesterol 244 mg/dL (<200); HDL Cholesterol 68 mg/dL (40-60); Triglyceride 82 mg/dL (<150)
== END 2020-12-31 08:57 | disposition home or self-care (01) ==
LOC: LBN 08:56
PROVIDERS: PCP Nurse Practitioner; Visit Provider Nurse Practitioner
DX: K21.9 Gastro-esophageal reflux disease without esophagitis (principal); M25.59 Pain in other specified joint; Z13.220 Encounter for screening for lipoid disorders
CPT/HCPCS: 80053; 80061

== ENCOUNTER 2021-07-02 14:42 | Outpatient (REF) | payer OTHER, SELFPAY ==
[2021-07-03 20:29] LABS: COVID-19 RT-PCR UVMMC Result Negative (Negative)
== END 2021-07-02 14:43 | disposition home or self-care (01) ==
LOC: NCHCN 14:42
PROVIDERS: PCP Nurse Practitioner; Visit Provider Nurse Practitioner
DX: Z20.822 Contact with and (suspected) exposure to COVID-19 (principal)
CPT/HCPCS: U0003

== ENCOUNTER 2021-09-10 06:31 | Observation (INO) | payer OTHER, SELFPAY ==
[2021-09-10] VITALS (40 sets, daily range): BP systolic 110–178; BP diastolic 69–119; PULSE 60–98; RESP 7–39; TEMP 36.4–37.2; O2SAT 94–98
--- NOTE | 2021-09-10 | DI.US_ITS ---
APPROVED REPORT EXAM: Comprehensive 2D, Doppler, and color-flow Echocardiogram Patient Location: In-Patient Room/Bed: 230 Pool Technician: Katiuska Zacarias RDCS (AE) Indications: EKG changes, epigastric discomfort Other Information Study Quality: Fair. Technically limited study due to body habitus. Conclusion Left Ventricle : The left ventricle is normal size. The left ventricular ejection fraction is within the normal range. There is normal left ventricular wall thickness. There is normal LV segmental wall motion. The left ventricular diastolic function is normal. LVEF is 59%. Right Ventricle : Right ventricle is grossly normal in size. Right ventricular systolic function is g rossly normal. Atria : The left atrium size is normal. The right atrium size is normal. Tricuspid Valve : The tricuspid valve is normal in structure. Trace tricuspid regurgitation. Unable t o assess PA pressure. There is no tricuspid valve stenosis. Please see remainder of findings for further details. Wall motion Left Ventricle The left ventricle is normal size. The left ventricular ejection fraction is within the normal range. There is normal left ventricular wall thickness. There is normal LV segmental wall motion. The left ventricular diastolic function is normal. There is no ventricular septal defect visualized. LVEF is 5 9%. Right Ventricle Right ventricle is grossly normal in size. Right ventricular systolic function is grossly normal. Atria The left atrium size is normal. The right atrium size is normal. Aortic Valve The aortic valve is normal in structure. Aortic valve is trileaflet. There is no aortic valvular sten osis. No aortic regurgitation is present. Mitral Valve The mitral valve is normal in structure. No evidence of mitral valve stenosis. Mild mitral regurgitat ion. Tricuspid Valve The tricuspid valve is normal in structure. There is no tricuspid valve stenosis. Trace tricuspid reg urgitation. Unable to assess PA pressure. Pulmonic Valve The pulmonary valve is normal in structure. There is no pulmonic valvular stenosis. There is no pulmo ina valvular regurgitation. Great Vessels The aortic root is normal in size. The ascending aorta is normal in size. Aortic arch is not well vis ualized. IVC is normal in size and collapses >50% with inspiration. Pericardium There is no pericardial effusion. 2D Dimensions IVSD d PLAX 0.90 cm F: 0.6-1.0 LV Vol A2C d MOD 76.8 mL LVPW d PLAX 0.89 cm F: 0.6 - 1.0 LV Vol A4C d MOD 95.6 mL LVID d PLAX 4.50 cm F: 3.8 - 5.2 LA vol/ BSA A2C s A-L 19.1 mL/m2 LVDs 3.00 cm F: 2.2 - 3.5 LA vol/ BSA A4C s A-L 19.0 mL/m2 Ao Root d 2.61 cm F: 2.7 - 3.3 LA Vol/ BSA Biplane s A-L 19.7 mL/m2 RA Area A4C 11.05 cm2 LA Area A4C s MOD 12.73 cm2 RA Vol/ BSA A4C s A-L 15.4 mL/m2 LA Area A2C s MOD 12.35 cm2 Ao Asc Diam d 2.68 cm F: 2.3 - 3.1 LV EF A4C MOD 57.8 % LV EF Teichholz 62.1 % LV EF A2C MOD 59.4 % LVEF (Contreras's) 56.37 % F: 54 - 74 LV EF Biplane MOD 56.4 % LV Volume 72.04 mL F: 46 - 106 SV 49.79 mL LV Volume Index 45.30 mL/m2 F: 29 - 61 SV Index 31.43 mL/m2 LV Vol Biplane MOD 88.3 mL FS 33.25 % M-Mode TAPSE 2.56 cm (M/F) >1.7 LV Diastology MV E' medial 0.121 (>0.07 m/s) E/A Ratio 1.7 LV E/e MED 7.10 (<14) MV E Vmax 0.86 (0.4-1.3 m/s) MV E' lateral 0.067 (>0.1 m/s) MV A Vmax 0.50 (0.4-1.3 m/s) LV E/e LAT 12.75 (<14) MV E/A Ratio 1.68 MV E/E' medial 7.11 MV E/E' lateral 12.78 Aortic Valve LVOT Area 2.98 cm2 AoV Area Vmax 2.79 cm2 LVOT Vmax 1.36 m/s AoV Area/ BSA (Vmax) 1.76 cm2/m2 LVOT Mean Adam. 0.83 m/s PARAS Mean Adam. 2.76 cm2 LVOT Peak Grad 7.4 mmHg PARAS Mean Adam. Index 1.74 cm2/m2 LVOT Mean Grad 3.4 mmHg LVOT VTI 0.270 m LVOT Diam s 1.90 cm AoV Vmax 1.46 m/s Velocity Ratio 0.93 AoV Mean Adam. 0.90 m/s AoV Peak Grad 8.5 mmHg LVOT SV 80.46 mL AoV Mean Grad 3.7 mmHg AoV VTI 0.283 m AoV Area VTI 2.85 cm2 AoV Area/ BSA (VTI) 1.80 cm/m2 Mitral Valve MV DT 220 (160-240 msec) MV PHT 64 msec MV Area PHT 3.45 cm2 MV VTI 0.316 m MV Area VTI 2.55 (4.0-6.0 cm2) Pulmonary Valve PV Vmax 0.99 (0.5-1.5 m/s) RVOT Peak Gr. 2.15 mmHg PV Peak Grad 4.0 mmHg RVOT Mean Gr. 1.05 mmHg PV Mean Grad 1.8 mmHg RVOT VTI 0.156 m PV VTI 0.204 m RVOT Vmax 0.73 m/s
--- NOTE | 2021-09-10 06:30 | RT.EKG_ITS ---
APPROVED REPORT Exam: Resting ECG Reason for Exam: chest pain Patient Location: E HR:77 bpm ECG Measurements Heart Rate 77 AXIS DE 136 P 77 QRSd 91 QRS 36 QT 371 T 2 QTc 421 Conclusion Sinus rhythm...normal P axis, V-rate 60- 99 Probable left atrial enlargement...P >50mS, <-0.10mV V1 Borderline repol abnormality, diffuse leads...ST dep, T flat/neg, ant/lat/inf I have reviewed and interpreted ECG and agree with software generated interpretation.
--- NOTE | 2021-09-10 06:35 | W.ED.GENAD ---
Discharge Plan Disposition Patient Disposition: [facility] INPATIENT Condition: Good Discharge Details Chief Complaint: Abd Prob Clinical Impression: Acute epigastric pain Primary Care Provider: Neela Orantes ED Provider: Kendall Camara Home Meds and New Rx's Prescriptions: No Action omeprazole 20 mg capsule,delayed release(DR/EC) 20 mg PO DAILY Qty: 14 RF: 0 cbd oil 1 ea Topical PRN PRNRF: 0 azithromycin [Zithromax Z-Jonah] 250 mg tablet See Rx Instructions PO .COMPLEX Qty: 6 RF: 0 cholecalciferol (vitamin D3) 1,250 mcg (50,000 unit) capsule 50,000 unit PO .every other week Qty: 6 RF: 3 Flovent HFA 110 mcg/actuation HFA aerosol inhaler 220 mcg Inhalation BID Qty: 3 RF: 3 albuterol sulfate 90 mcg/actuation HFA aerosol inhaler 2 puff Inhalation Q4H PRN Qty: 1 RF: 12 methylprednisolone [Medrol (Jonah)] 4 mg tablets,dose pack See Rx Instructions .Route .COMPLEX Qty: 21 RF: 0 sodium chloride 3 % Mist 3 spray Intranasal PRN PRNRF: 0 Medical Decision Making <Cash Moralez MD - Last Filed: 09/10/21 07:40> Patient presenting with upper abdominal pain that is mostly epigastric with some radiation to the back and somewhat into the chest. Present since New Years but getting worse. EKG is concerning with ST depression in inferior lateral leads mostly. However, patient's history is not really consistent with cardiac presentation. Seems more related to reflux and acid type disease. She does have previous history of GERD but reports a week of omeprazole did not help. IV established and laboratory studies including troponin and lipase sent. Fluids and Pepcid ordered. CT scan of the abdomen pelvis will be obtained. Laboratory studies unremarkable. Troponin negative. Lipase and liver function normal. White count normal. CT scan pending. Lab Data Lab results reviewed: Yes I reviewed the patient's lab results. ECG Data Attestation: I personally reviewed and interpreted this ECG (s) as follows: Prior ECG tracings: available for review Interpretation: see EKG <Kendall Camara DO - Last Filed: 09/10/21 10:36> 61-year-old female who was signed out to me by my colleague Dr. Cash Moralez. Please refer to his HPI, physical exam, assessment and plan. At time of signout we are pending CT scan results. Patient has been complaining of epigastric pain for mild bloating for the last 4 days, notably worsened over the last 24 hours. It appears to be nonexertional. Slightly worsened sometimes with food, but also just independently on its own. This morning it was notably worsened when she got up and went to the shower. She denies any arm or neck pain. She denies any chest pain or chest tightness. Pain is located in the epigastrium itself. She does have a family history of cardiac disease, her grandmother had quadruple bypass, her father was out of her life and so she does not know his past medical history, she does believe that her mother also had heart disease. Patient is also a smoker. Vital signs at this time are stable. CT scan is negative for acute process. EKG is concerning and demonstrates just under a millimeter of ST elevation in V1, as well as seemingly reciprocal depression of nearly a millimeter in V3 V4 V5 and V6 as well as T wave inversion in lead III and depression in 2 3 aVF. Patient states that the pain is mild now while resting in bed. I am concerned that although this is not a STEMI it may be cardiac in origin. I do feel that with the patient's risk factors, EKG changes which do appear to be new from prior EKG in 2009, that she would benefit from stress test. Initial troponin is negative, and with 4 days of symptoms and certainly reassured with that. We will reach out to the hospitalist for admission. 10:33 AM Repeat EKG demonstrates minimal improvement otherwise stable EKG. Troponin on repeat is normal. Dr. Fierro will place admission orders. She agrees with the assessment and plan. I have extensively reviewed the treatment plan with the patient. I have addressed all patient concerns at this time. I have also discussed the plan with the admitting physician and they agree with the current assessment and plan and have agreed to assume responsibility for the patient. All parties demonstrate verbal understanding and agreement with our assessment and plan at this time. The documentation in this chart was dictated using [employer] dictation software. Please excuse any dictation errors. FINDINGS: ABDOMEN: Lung Bases: Normal where visualized. Liver: Normal density. No measurable mass. Gallbladder and biliary tract: No radiodense calculus or dilation. Pancreas: Normal density, no abnormal calcifications or inflammatory process. Spleen: Normal. Kidneys: Normal size, contour and axis. No radiodense stones or obstructive uropathy. No masses seen. Adrenal glands: No masses seen. Abdominal Aorta: Abdominal portion non-dilated. PELVIS: Bladder: No gross wall thickening. No calculi.No focal mass. Bowel: Diverticulosis without evidence of diverticulitis. No obstruction or bowel wall thickening. Appendix normal. Peritoneal cavity: No ascites, collection or mesenteric inflammatory response. Bones: Within normal limits for age. Reproductive organs: Within normal limits. Lymph nodes: Unremarkable. Impression: No acute abnormality.. HPI <Cash Moralez MD - Last Filed: 09/10/21 07:40> General Mode of arrival: ambulatory. Date/Time Provider Initiated Documentation: 09/10/21 06:35. Limitations to Documentation: no limitations. Information obtained by: patient, RN notes reviewed and old records reviewed. HPI Narrative: Patient presents to ED with upper abdominal pain. Patient reports taking a fall around New Years. She had some discomfort and thought it was just a bruise. Subsequently was having heartburn and took omeprazole for a week. Continues to have increasing upper abdominal pain with some radiation to the back. Occasional nausea. She has decreased appetite and gets full quickly. She is not having difficulty drinking. She had no vomiting or diarrhea. Pain is mostly epigastric minimal radiation to the chest. No lower abdominal pain. No fever. Some shortness of breath at times that she thinks is related to her anxiety. Pain more or less resolved when she is lying down. This morning while in the shower was very uncomfortable, nauseated, felt bloated and came in to be evaluated. Related Data Home Medications Medication Instructions Recorded Confirmed Cbd Oil 1 ea TOPICAL PRN PRN 01/09/18 09/05/18 sodium chloride 3 spray INTRANASAL PRN PRN 08/31/18 09/05/18 omeprazole 20 mg capsule,delayed 20 mg PO DAILY #14 cap 09/05/18 09/05/18 release azithromycin 250 mg tablet See Rx Instructions PO .COMPLEX #6 10/04/19 tab cholecalciferol (vitamin D3) 1,250 50,000 unit PO .every other week 07/03/20 mcg (50,000 unit) capsule #6 cap albuterol sulfate 90 mcg/actuation 2 puff INHALATION Q4H PRN #1 unit 04/13/21 09/10/21 aerosol inhaler fluticasone propionate 110 220 mcg INHALATION BID #3 inhaler 04/13/21 09/10/21 mcg/actuation HFA aerosol inhaler methylprednisolone 4 mg tablets in See Rx Instructions .ROUTE 07/08/21 a dose pack .COMPLEX #21 dose pk Previous Rx's Medication Instructions Recorded omeprazole 20 mg capsule,delayed 20 mg PO DAILY #14 cap 09/05/18 release azithromycin 250 mg tablet See Rx Instructions PO .COMPLEX #6 10/04/19 tab cholecalciferol (vitamin D3) 1,250 50,000 unit PO .every other week 07/03/20 mcg (50,000 unit) capsule #6 cap albuterol sulfate 90 mcg/actuation 2 puff INHALATION Q4H PRN #1 unit 04/13/21 aerosol inhaler fluticasone propionate 110 220 mcg INHALATION BID #3 inhaler 04/13/21 mcg/actuation HFA aerosol inhaler methylprednisolone 4 mg tablets in See Rx Instructions .ROUTE 07/08/21 a dose pack .COMPLEX #21 dose pk Allergies Allergy/AdvReac Type Severity Reaction Status Date / Time Sulfa (Sulfonamide Allergy Unknown Rash Verified 09/10/21 06:42 Antibiotics) morphine AdvReac Severe Psychosis Verified 09/10/21 06:42 codeine AdvReac Intermediate jittery Verified 09/10/21 06:42 General KLARISSA: 3 Review of Systems <Cash Moralez MD - Last Filed: 09/10/21 07:40> Narrative: 06/11 Review of Systems completed and is negative except as stated above in HPI (Systems reviewed: Const, Eyes, ENT, Resp, CV, GI, , MSK, Skin, Neuro) PFSH <Cash Moralez MD - Last Filed: 09/10/21 07:40> All Active Problems Acute epigastric pain (Acute) GERD (gastroesophageal reflux disease) (Chronic) Screening for cholesterol level (Acute) Joint pain (Acute) Left ureteral stone (Acute) Trochanteric bursitis of left hip (Acute 05/22/15) Sciatica (Acute 03/08/11) WITH LEFT WEAKNESS Right ureteral stone (Acute 04/07/16) Patellar tendinitis of left knee (Acute 05/22/15) Knee pain, left anterior (Acute 04/29/15) Arthralgia of left acromioclavicular joint (Acute 10/14/17) Adhesive capsulitis of left shoulder (Acute 09/16/17) Left flank pain (Acute) a. After ureteral stent removal. Menopause (Chronic) Smoker (Chronic) a. Half pack a day. 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 HEENT: NC/AT. Normal facial exam. Eyes: Normal conjunctiva and sclera. Neck: Supple. Trachea midline. Lungs: Normal respiratory effort. Lungs are clear. Cor: RRR without murmur/gallop. Good radial pulses. GI: Soft. ND. Tender epigastirc with voluntary guarding. Back: No CVAT Neuro: A+O x 3. Normal speech, mentation, gait. Cranial nerves II - XII grossly intact. No gross motor or sensory deficit. Ext: No C/C/E. Skin: Warm and dry. Skin erythema/scarring/discoloration on lower back. Sign Out <Cash Moralez MD - Last Filed: 09/10/21 07:40> Sign Out Data: Sign Out Comment: pending CT scan and re-evaluation; trop negative and reassuring but EKG still abnormal Last updated by Cash Moralez MD at 09/10/21 07:52
--- NOTE | 2021-09-10 06:45 | DI.CT_ITS ---
Exam(s) CT ABDOMEN PELVIS W EXAM: CT ABDOMEN PELVIS W CLINICAL HISTORY: worsening upper abdominal pain. TECHNIQUE: Imaging Protocol: Axial computed tomography images with coronal and sagittal reformatted images were created and reviewed CONTRAST MATERIAL: Intravenous: Omnipaque 350 Contrast volume:100 ml Oral: no COMPARISON: CT CT renal colic wo from 08/09/2018 FINDINGS: ABDOMEN: Lung Bases: Normal where visualized. Liver: Normal density. No measurable mass. Gallbladder and biliary tract: No radiodense calculus or dilation. Pancreas: Normal density, no abnormal calcifications or inflammatory process. Spleen: Normal. Kidneys: Normal size, contour and axis. No radiodense stones or obstructive uropathy. No masses seen. Adrenal glands: No masses seen. Abdominal Aorta: Abdominal portion non-dilated. PELVIS: Bladder: No gross wall thickening. No calculi.No focal mass. Bowel: Diverticulosis without evidence of diverticulitis. No obstruction or bowel wall thickening. A ppendix normal. Peritoneal cavity: No ascites, collection or mesenteric inflammatory response. Bones: Within normal limits for age. Reproductive organs: Within normal limits. Lymph nodes: Unremarkable. Impression: No acute abnormality.. RADIATION DOSE DELIVERED: 600.27mGy.cm Total DLP DATA REPOSITORY: All CT scans at this facility are submitted to the National Radiology Data Registry (NRDR) Dose Index Registry (DIR) with the [employer] (ACR). RADIATION OPTIMIZATION: All CT scans at this facility use at least one of these dose optimization te chniques: automated exposure control; mA and/or kV adjustment per patient size (includes targeted exa ms where dose is matched to clinical indication); or iterative reconstruction.
[2021-09-10 07:12] LABS: Abs Immature Grans 0.02 10^3/uL (0.0-0.06); Absolute Basophil Count 0.07 10^3/uL (0.0-0.2); Absolute Eosinophil Count 0.04 10^3/uL (0.0-0.7); Absolute Lymphocyte Count 1.17 10^3/uL (1.2-3.4); Absolute Monocyte Count 0.32 10^3/uL (0.1-0.8); Absolute Neutrophil Count 7.78 10^3/uL (1.2-6.7); Basophils % 0.7; Eosinophils % 0.4; HGB 15.6 g/dL (11.2-15.7); Immature Grans % 0.2; Lymphocytes % 12.4; MCH 26.5 pg (27.0-33.0); MCHC 31.2 % (32.0-36.0); MCV 84.9 fL (80-95); MPV 9.4 fL (8.0-11.0); Monocytes % 3.4; Neutrophils % 82.9; Nucleated RBC 0 %; Platelet Count 222 10^3/uL (130-400); RBC 5.89 10^6/uL (3.93-5.22); RDW 13.2 % (11.7-14.6); RDW-SD 41.1 fL
[2021-09-10] MEDS: Lactated Ringers 1,000 ML 125 ML IV ×2 (07:14→14:37)
[2021-09-10] MEDS: FAMOTIDINE 20 MG/50 ML BAG 100 MG IVPB (07:14)
[2021-09-10] MEDS: Normal Saline Flush 10 ML SYR IVP ×2 (07:15→21:24)
[2021-09-10 07:17] LABS: Bilirubin Negative (Negative); Blood Moderate (Negative); Clarity Clear (Clear); Glucose Negative (Negative); Ketones >=160 mg/dL (Negative); Leukocyte Esterase Negative (Negative); Nitrite Negative (Negative); Specific Gravity >= 1.030 (1.005-1.025); Urobilinogen 0.2 EU/dL (Up TO 0.2)
[2021-09-10 07:26] LABS: Bacteria Negative HPF (Negative); C & S Indicated? No; Casts Negative LPF (Negative); Crystals Negative HPF (Negative); Epithelial Cells Few HPF (Negative); Mucus Trace (Negative)
[2021-09-10 07:36] LABS: ALT 31 U/L (14-59); AST 21 U/L (15-37); Albumin 4.2 g/dL (3.4-5.0); Alkaline Phosphatase 93 U/L (46-116); Anion Gap 12.6 mmol/L (3-11); BUN 20 mg/dL (7-18); Bilirubin, Total 0.5 mg/dL (0.2-1.0); CO2 22.4 mmol/L (21.0-32.0); CREATININE 0.7 mg/dL (0.55-1.02); Calcium 9.2 mg/dL (8.5-10.1); Chloride 104 mmol/L (98-107); Glucose 108 mg/dL (74-106); Lipase 78 U/L (73-393); Magnesium 2.2 mg/dL (1.8-2.4); Potassium 3.6 mmol/L (3.5-5.1); Sodium 139 mmol/L (136-145); Total Protein 7.6 g/dL (6.4-8.2); Troponin I < 50 ng/L (<or=60)
[2021-09-10] MEDS: LORazepam 2 MG/ML VIAL (08:11)
[2021-09-10] MEDS: Omnipaque 350 MG/ML 100 ML BTL IV (08:15)
[2021-09-10] MEDS: Aspirin 81 MG CHEW 324 MG CH (08:50)
--- NOTE | 2021-09-10 09:30 | RT.EKG_ITS ---
APPROVED REPORT Exam: Resting ECG Reason for Exam: chest pain Patient Location: E HR:64 bpm ECG Measurements Heart Rate 64 AXIS UT 156 P 75 QRSd 91 QRS 37 QT 401 T 13 QTc 414 Conclusion Sinus rhythm...normal P axis, V-rate 60- 99 Probable left atrial enlargement...P >50mS, <-0.10mV V1 Physician: Elevation now a bit more diminished in V1 and notably less than a millimeter, depression s till present in V3 through V5. As well as aVF. No evidence of STEMI. Mild improvement from initial EKG today.
[2021-09-10 10:28] LABS: Troponin I < 50 ng/L (<or=60)
--- NOTE | 2021-09-10 11:27 | CCONE_ITS ---
Date of service: 09/10/21 Time of Service: 11:27 Assessment and Plan Assessment and plan (1) Acute epigastric pain: Status: Acute Assessment and plan: 1. Acute epigastric pain: I do not have a great explanation for this pain as her electrolytes are totally normal as well as her CT abdomen and pelvis. This could be an atypical presentation of cardiac disease though the patient does not have too many risk factors. I do not think this represents unstable angina nor does she have any evidence to suggest this is a non-STEMI. Her EKG does not meet STEMI criteria. The patient's initial diffuse ST depression has resolved somewhat on repeat ECG. She does have a history of hyperlipidemia and her mother as well as her grandmother have a history of coronary disease. She is not an active smoker. She has now had 2 negative troponins. ?Recommend echocardiogram to look for wall motion abnormalities. ?Continue to cycle troponins until she has 3 negative ?Recommend stress test in the next few days. This can be done as an outpatient if her pain resolves and her troponins remain negative ?Would not start anticoagulation or antiplatelet medication at this time ?Repeat lipids and consider initiation of statin based on ASCVD 10-year risk score. History of Present Illness History of Present Illness Chief Complaint: epigastric pain Narrative: Ms. Medina is a 61-year-old female with past medical history significant for GERD and hyperlipidemia who presented to the emergency room with epigastric and abdominal pain. Patient states that this all started a few days ago after she had a fall. She was concerned that maybe she bruised her tablet something in her abdomen. She states that for the past few days she has had abdominal pain to the point where even eating has caused discomfort. She is in certain positions particularly laying on her left side or even sitting down causes discomfort so she has been standing a little bit more than she ordinarily would. This morning she was in the shower and developed pain and decided enough was enough she came to the emergency room. Aside from the early satiety and some nausea (she was dry heaving in the shower) she does not have any associated symptoms including diaphoresis or chest pain. She does not have any exertional component to her abdominal pain nor any lightheadedness or dizziness. Her abdominal pain can be reproduced by pushing in certain locations around her xiphoid. In the emergency room her initial ECG showed diffuse ST depressions as well as inferior T wave inversions. A repeat ECG showed significant improvement of those diffuse ST depressions with only less than a millimeter depression in V3 through V5. She has had [address] abdomen and pelvis showed no acute abnormalities. She has no significant electrolyte abnormalities either. Review of Systems All systems reviewed & are unremarkable except as noted in HPI and below PFSH All Active Problems Acute epigastric pain (Acute) GERD (gastroesophageal reflux disease) (Chronic) Screening for cholesterol level (Acute) Joint pain (Acute) Left ureteral stone (Acute) Trochanteric bursitis of left hip (Acute 05/22/15) Sciatica (Acute 03/08/11) WITH LEFT WEAKNESS Right ureteral stone (Acute 04/07/16) Patellar tendinitis of left knee (Acute 05/22/15) Knee pain, left anterior (Acute 04/29/15) Arthralgia of left acromioclavicular joint (Acute 10/14/17) Adhesive capsulitis of left shoulder (Acute 09/16/17) Left flank pain (Acute) a. After ureteral stent removal. Menopause (Chronic) Smoker (Chronic) a. Half pack a day. 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 Working smoke detector in home: Yes Fire extinguisher in home: Yes Carbon monox detector in home: Yes Do you feel safe in your relationship?: Yes Exam Const General: comfortable and no acute distress HENMT Head: normocephalic and atraumatic Eyes General: appearance normal, both eyes and all related structures Resp Effort & Inspection: normal respiratory effort Auscultation: clear to auscultation bilaterally Cardio Jugular venous pressure: no JVD Palpation: normal PMI Rate: regular rate Rhythm: regular rhythm Heart Sounds: S1 normal and S2 normal (No Murmurs, Rubs or Gallops) GI Palpation: soft Auscultation: normoactive bowel sounds Skin General skin exam: no rashes or lesions noted Extrem General: normal to inspection and no clubbing, cyanosis or edema Psych Appearance: grossly normal Results Last Vital Signs Temp 36.4 C L 09/10/21 06:38 Pulse 75 09/10/21 10:15 Resp 15 09/10/21 10:20 BP 146/87 H 09/10/21 10:15 Pulse Ox 94 09/10/21 10:20 Labs Result diagrams: 09/10/21 06:55 09/10/21 06:55 Labs: Laboratory Results - last 24 hr 09/10/21 09/10/21 09/10/21 06:55 06:55 07:05 WBC 9.40 RBC 5.89 H Hgb 15.6 Hct 50.0 H MCV 84.9 MCH 26.5 L MCHC 31.2 L RDW 13.2 Plt Count 222 MPV 9.4 Immature Gran % 0.2 Neutrophils % 82.9 Lymphocytes % 12.4 Monocytes % 3.4 Eosinophils % 0.4 Basophils % 0.7 Nucleated RBC % 0 Absolute Neutrophils 7.78 H Absolute Lymphocytes 1.17 L Absolute Monocytes 0.32 Absolute Eosinophils 0.04 Absolute Basophils 0.07 Sodium 139 Potassium 3.6 Chloride 104 Carbon Dioxide 22.4 Anion Gap 12.6 H BUN 20 H Creatinine 0.7 Estimated GFR/1.73 m2 >= 60.00 Glucose 108 H Calcium 9.2 Magnesium 2.2 Total Bilirubin 0.5 AST 21 ALT 31 Alkaline Phosphatase 93 Troponin I < 50 Total Protein 7.6 Albumin 4.2 Lipase 78 Urine Color Yellow Urine Clarity Clear Urine pH 6.0 Ur Specific [place] >= 1.030 H Urine Protein Negative Urine Ketones >=160 H Urine Blood Moderate H Urine Nitrite Negative Urine Bilirubin Negative Urine Urobilinogen 0.2 Ur Leukocyte Esterase Negative Urine RBC 3-5 H Urine WBC 3-5 Ur Epithelial Cells Few Urine Crystals Negative Urine Bacteria Negative Urine Casts Negative Urine Mucus Trace Ur Culture Indicated? No Urine Glucose Negative 09/10/21 10:04 WBC RBC Hgb Hct MCV MCH MCHC RDW Plt Count MPV Immature Gran % Neutrophils % Lymphocytes % Monocytes % Eosinophils % Basophils % Nucleated RBC % Absolute Neutrophils Absolute Lymphocytes Absolute Monocytes Absolute Eosinophils Absolute Basophils Sodium Potassium Chloride Carbon Dioxide Anion Gap BUN Creatinine Estimated GFR/1.73 m2 Glucose Calcium Magnesium Total Bilirubin AST ALT Alkaline Phosphatase Troponin I < 50 Total Protein Albumin Lipase Urine Color Urine Clarity Urine pH Ur Specific [place] Urine Protein Urine Ketones Urine Blood Urine Nitrite Urine Bilirubin Urine Urobilinogen Ur Leukocyte Esterase Urine RBC Urine WBC Ur Epithelial Cells Urine Crystals Urine Bacteria Urine Casts Urine Mucus Ur Culture Indicated? Urine Glucose
[2021-09-10 14:12] LABS: Troponin I < 50 ng/L (<or=60)
[2021-09-10] MEDS: Enoxaparin 40 MG/0.4 ML SYR SC (14:36)
[2021-09-10] MEDS: Pantoprazole 40 MG TABCR PO (14:36)
[2021-09-10 15:47] LABS: COVID-19 PCR Negative (Negative)
[2021-09-10 16:00] LABS: Source Nasal/Nares
[2021-09-10] MEDS: Sucralfate 1 GM TAB PO ×2 (17:02→21:22)
--- NOTE | 2021-09-10 17:17 | W.PM.HP.N ---
Date of service: 09/10/21 Time of Service: 16:30 Assessment and Plan Assessment and plan (1) Abnormal EKG: Start date: 09/10/21 Start time: 17:00 Status: Acute Assessment and plan: 2 abnormal ekg's with normal trops Echo normal evaluated by cardiology recommends stress test, will obtain one tomorrow, NPO after MN though i do not feel this to be cardiac in nature based on evaluation. All pain is mid epigastric, she feel a couple days ago. Pain is worse with sitting then lying and worse with palpation. Likely muscular in nature. will trial toradol for pain (2) Acute epigastric pain: Start date: 09/10/21 Start time: 17:00 Status: Acute Assessment and plan: This appears to more GERD or muscular, CT was normal. LFT and Lipase was normal Trial carafate, famotidine and protonix toradol for pain (3) GERD (gastroesophageal reflux disease): Start date: 09/10/21 Start time: 17:00 Status: Chronic Assessment and plan: as above discussed with Dr. Fierro Qualifiers: Esophagitis presence: without esophagitis Qualified Code(s): K21.9 - Gastro-esophageal reflux disease without esophagitis History of Present Illness History of Present Illness Chief Complaint: abdominal pain Narrative: 61 y.o female presented to [facility] with abdominal pain ongoing for a couple of days. Fell and injured herself on ice. She has going abdominal pain. CT was normal. However EKG was slightly abnormal from last one. Troponin was normal, second trop done was normal, with second ekg the same as first. Patient was asked to be admitted for further evaluation by hospitalist group. Patient will be admitted to m/s telemetry. Cardiology consult, echo. Based on cardiology evaluation will get stress test. Review of Systems All systems reviewed & are unremarkable except as noted in HPI and below PFSH All Active Problems Abnormal EKG (Acute) Acute epigastric pain (Acute) GERD (gastroesophageal reflux disease) (Chronic) Screening for cholesterol level (Acute) Joint pain (Acute) Left ureteral stone (Acute) Trochanteric bursitis of left hip (Acute 05/22/15) Sciatica (Acute 03/08/11) WITH LEFT WEAKNESS Right ureteral stone (Acute 04/07/16) Patellar tendinitis of left knee (Acute 05/22/15) Knee pain, left anterior (Acute 04/29/15) Arthralgia of left acromioclavicular joint (Acute 10/14/17) Adhesive capsulitis of left shoulder (Acute 09/16/17) Left flank pain (Acute) a. After ureteral stent removal. Menopause (Chronic) Smoker (Chronic) a. Half pack a day. 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: No Working smoke detector in home: Yes Fire extinguisher in home: Yes Carbon monox detector in home: Yes Do you feel safe in your relationship?: Yes Meds Allergies and Home Medications Allergies Allergy/AdvReac Type Severity Reaction Status Date / Time Sulfa (Sulfonamide Allergy Unknown Rash Verified 09/10/21 06:42 Antibiotics) morphine AdvReac Severe Psychosis Verified 09/10/21 06:42 codeine AdvReac Intermediate jittery Verified 09/10/21 06:42 Home Medications Medication Instructions Recorded Confirmed Type sodium chloride 3 spray INTRANASAL PRN PRN 08/31/18 09/10/21 History albuterol sulfate 90 mcg/actuation 2 puff INHALATION Q4H PRN #1 unit 04/13/21 09/10/21 Rx aerosol inhaler fluticasone propionate 110 220 mcg INHALATION BID #3 inhaler 04/13/21 09/10/21 Rx mcg/actuation HFA aerosol inhaler Exam Const General: cooperative, comfortable and no acute distress Orientation: alert, awake and oriented x3 Eyes Eyelids: eyelids normal Pupils: PERRL EOM: EOM intact bilaterally Neck Neck: normal visual inspection and no JVD Lymphatic: no lymphadenopathy noted Resp Effort & Inspection: normal respiratory effort Auscultation: clear to auscultation bilaterally Cardio Jugular venous pressure: no JVD Rhythm: regular rhythm Heart Sounds: S1 normal GI Inspection: normal to inspection Palpation: firm, guarding and other (pain with sitting up and palpaition) Auscultation: normal bowel sounds General: No CVA tenderness and deferred Skin General skin exam: no rashes or lesions noted Neuro General: patient alert, patient awake and patient oriented x3 Cognition: normal cognition Speech: speech normal Gait: normal gait Extrem General: normal to inspection, full ROM and no clubbing, cyanosis or edema Results Labs Result diagrams: 09/10/21 06:55 09/11/21 07:00 Labs: Laboratory Results - last 24 hr 09/10/21 09/10/21 09/10/21 06:55 06:55 07:05 WBC 9.40 RBC 5.89 H Hgb 15.6 Hct 50.0 H MCV 84.9 MCH 26.5 L MCHC 31.2 L RDW 13.2 Plt Count 222 MPV 9.4 Immature Gran % 0.2 Neutrophils % 82.9 Lymphocytes % 12.4 Monocytes % 3.4 Eosinophils % 0.4 Basophils % 0.7 Nucleated RBC % 0 Absolute Neutrophils 7.78 H Absolute Lymphocytes 1.17 L Absolute Monocytes 0.32 Absolute Eosinophils 0.04 Absolute Basophils 0.07 Sodium 139 Potassium 3.6 Chloride 104 Carbon Dioxide 22.4 Anion Gap 12.6 H BUN 20 H Creatinine 0.7 Estimated GFR/1.73 m2 >= 60.00 Glucose 108 H Calcium 9.2 Magnesium 2.2 Total Bilirubin 0.5 AST 21 ALT 31 Alkaline Phosphatase 93 Troponin I < 50 Total Protein 7.6 Albumin 4.2 Lipase 78 Urine Color Yellow Urine Clarity Clear Urine pH 6.0 Ur Specific [place] >= 1.030 H Urine Protein Negative Urine Ketones >=160 H Urine Blood Moderate H Urine Nitrite Negative Urine Bilirubin Negative Urine Urobilinogen 0.2 Ur Leukocyte Esterase Negative Urine RBC 3-5 H Urine WBC 3-5 Ur Epithelial Cells Few Urine Crystals Negative Urine Bacteria Negative Urine Casts Negative Urine Mucus Trace Ur Culture Indicated? No Urine Glucose Negative COVID-19 Source SARS-CoV-2 (PCR) 01/13/22 01/13/22 01/13/22 09:07 10:04 13:40 WBC RBC Hgb Hct MCV MCH MCHC RDW Plt Count MPV Immature Gran % Neutrophils % Lymphocytes % Monocytes % Eosinophils % Basophils % Nucleated RBC % Absolute Neutrophils Absolute Lymphocytes Absolute Monocytes Absolute Eosinophils Absolute Basophils Sodium Potassium Chloride Carbon Dioxide Anion Gap BUN Creatinine Estimated GFR/1.73 m2 Glucose Calcium Magnesium Total Bilirubin AST ALT Alkaline Phosphatase Troponin I < 50 < 50 Total Protein Albumin Lipase Urine Color Urine Clarity Urine pH Ur Specific [place] Urine Protein Urine Ketones Urine Blood Urine Nitrite Urine Bilirubin Urine Urobilinogen Ur Leukocyte Esterase Urine RBC Urine WBC Ur Epithelial Cells Urine Crystals Urine Bacteria Urine Casts Urine Mucus Ur Culture Indicated? Urine Glucose COVID-19 Source Nasal/Nares SARS-CoV-2 (PCR) Negative Last Vital Signs Temp 37.1 C 09/10/21 15:21 Pulse 64 09/10/21 15:25 Resp 14 09/10/21 15:21 BP 123/80 09/10/21 15:21 Pulse Ox 96 09/10/21 15:21
[2021-09-10] MEDS: LORazepam 1 MG TAB PO (21:22)
[2021-09-11 03:10] VITALS: BP 112/66; PULSE 74; RESP 14; TEMP 37; O2SAT 95
[2021-09-11 07:00] VITALS: PULSE 74
[2021-09-11 07:31] LABS: Anion Gap 10.3 mmol/L (3-11); BUN 17 mg/dL (7-18); CO2 24.7 mmol/L (21.0-32.0); CREATININE 0.7 mg/dL (0.55-1.02); Calcium 9.1 mg/dL (8.5-10.1); Calculated LDL 144 mg/dL (<100); Chloride 105 mmol/L (98-107); Cholesterol 228 mg/dL (<200); Glucose 82 mg/dL (74-106); HDL Cholesterol 61 mg/dL (40-60); Potassium 3.7 mmol/L (3.5-5.1); Sodium 140 mmol/L (136-145); Triglyceride 115 mg/dL (<150)
[2021-09-11 07:33] LABS: Hemoglobin A1C 5.3 % (<5.7)
[2021-09-11 07:57] VITALS: BP 113/75; PULSE 73; RESP 16; TEMP 37.2; O2SAT 94
[2021-09-11] MEDS: Famotidine 20 MG TAB PO (08:01)
[2021-09-11] MEDS: Sucralfate 1 GM TAB PO (08:01)
[2021-09-11] MEDS: Pantoprazole 40 MG TABCR PO (08:01)
[2021-09-11] MEDS: Mometasone 220 MCG 14 DOSE INHALER 2 PUFF IH (08:26)
--- NOTE | 2021-09-11 09:22 | PDOC.CMIN ---
- If Service Date Differs Date of service: 09/11/21 Time of Service: 09:22 Care Management Initial Assess REASON FOR HOSPITALIZATION:: Abnormal EKG PAST MEDICAL HISTORY/PAST SURGICAL HISTORY:: All Active Problems. Abnormal EKG (Acute). Acute epigastric pain (Acute). GERD (gastroesophageal reflux disease) (Chronic). Screening for cholesterol level (Acute). Joint pain (Acute). Left ureteral stone (Acute). Trochanteric bursitis of left hip (Acute 05/22/15). Sciatica (Acute 03/08/11). WITH LEFT WEAKNESS. Right ureteral stone (Acute 04/07/16). Patellar tendinitis of left knee (Acute 05/22/15). Knee pain, left anterior (Acute 04/29/15). Arthralgia of left acromioclavicular joint (Acute 10/14/17). Adhesive capsulitis of left shoulder (Acute 09/16/17). Left flank pain (Acute). a. After ureteral stent removal. Menopause (Chronic). Smoker (Chronic). a. Half pack a day. Medical History . GERD (gastroesophageal reflux disease). Mild intermittent reactive airway disease (07/08/15). flovent 07/2013, [facility] post infection. Nephrolithiasis. Surgical History . H/O breast augmentation. History of section PREVIOUS FUNCTIONAL STATUS/SOCIAL/FAMILY SUPPORTS:: Es lives in [place] with her partner Pierre. She has a son and a daughter. Her son lives in [place] and her daughter is living overseas. 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 She is independent at baseline and requires no assistive devices or community serevices. CURRENT FUNCTIONAL STATUS:: Es was sitting up in a chair when CM met with her. She was very pleasant and engaged well with CM. Es shared that she is feeling better and anticipates being discharged home today. She verbalized understanding that she will need an outpatient stress test which will be scheduled next week. Es also talked about her famiiy, in particular her daughter. She has been living and working in [place] for the past 4 years and will soon be moving to [place]. Es shared that she was able to visit her in [place] and plans to go to [place] as well. ADVANCE DIRECTIVES:: none on file Has patient been provided with info about the portal/API?: Yes Did the patient sign up for the portal?: Yes (previously) CODE STATUS:: Full Code INSURANCE COVERAGE / FINANCIAL ISSUES:: [employer] ([place]) CURRENT HOME/COMMUNITY SERVICES/EQUIPMENT:: none PRIMARY CARE PHYSICIAN:: Neela Orantes POTENTIAL DISCHARGE NEEDS:: Follow up with PCP and plan of care PATIENT/FAMILY EDUCATION NEEDS:: Review of discharge instructions, follow up plan including stress test, limitations, activity, diet, Ask Me Threre TRANSPORTATION:: via private vcehicle with friends/family PLAN:: Padma will be discharged home with no new servcices. She will follow up with her community providers and plan of care and transport with family.
[2021-09-11 11:37] VITALS: BP 111/73; PULSE 75; RESP 16; TEMP 36.7; O2SAT 97
--- NOTE | 2021-09-11 11:37 | DSE_ITS ---
Date of service: 09/11/21 Time of Service: 11:37 DS: Diagnosis Discharge Diagnosis (1) Abnormal EKG: Start date: 09/11/21 Start time: 11:39 Status: Acute Asessment and Plan: Cardiology recommends stress test. No in house stress today. Pain resolved. This appeared to be GI in nature, however d/t abnormal EKG will order outpatient stress. NSR on telemetry Negative trops Echo normal (2) Acute epigastric pain: Start date: 09/11/21 Start time: 11:39 Status: Resolved Asessment and Plan: Placed on carafate, protonix and famotidine, able to sit up today, no pain. She did fall a couple of days ago. CXR negative Could have contusion to rib from fall which aggravated GERD. Placed on protonix, carafate and famotidine, Will send home with omeprazole, famotidine and carafate. F/u with PCP in 2 weeks She is able to sit up in chair today when she was unable to yesterday. She has slight pain to left rib, explained ibuprofen would be good to take to reduce any swelling if she did bruise her rib when she fell she can take tylenol in addition to this. (3) GERD (gastroesophageal reflux disease): Start date: 09/11/21 Start time: 11:46 Status: Chronic Asessment and Plan: As above (4) Hyperlipidemia: Start date: 09/11/21 Start time: 11:48 Status: Acute Asessment and Plan: Patient does not want to take a statin she wants to take fish oil and change her diet. discussed with Dr. Fierro Discharge Plan Disposition Patient Disposition: HOME Condition: Good Discharge Details Reason For Visit: EKG Changes, Epigastric Discomfort Admit Date/Time: 09/10/21 10:34 Admit Provider: Zaria Fierro Attending Provider: Zaria Fierro Primary Care Provider: Neela Orantes Hospital Course Hospital Course: 61 y.o female presented to [facility] with abdominal pain ongoing for a couple of days. Fell and injured herself on ice. She has going abdominal pain. CT was normal. However EKG was slightly abnormal from last one. Troponin was normal, second trop done was normal, with second ekg the same as first. Patient was ask ed to be admitted for further evaluation by hospitalist group. Unable to obtain stress test today. She is feeling much better. Able to sit up. See dx for treatment plan. Will send home with plan for outpatient stress test. F/u with PCP in 2 weeks. Home Meds and New Rx's Prescriptions: New famotidine 20 mg Tablet 20 mg PO DAILY Qty: 30 RF: 0 omeprazole 20 mg capsule,delayed release(DR/EC) 20 mg PO DAILY Qty: 30 RF: 0 sucralfate 1 gram Tablet 1 g PO AC & HS Qty: 120 RF: 0 Continued Flovent HFA 110 mcg/actuation HFA aerosol inhaler 220 mcg Inhalation BID Qty: 3 RF: 3 albuterol sulfate 90 mcg/actuation HFA aerosol inhaler 2 puff Inhalation Q4H PRN Qty: 1 RF: 12 sodium chloride 3 % Mist 3 spray Intranasal PRN PRNRF: 0 Discharge Instructions Instructions: GERD (Gastroesophageal Reflux Disease) (DC), Contusion in Adults (DC), Hyperlipidemia (DC), Mediterranean Diet (DC) Additional Instructions: Follow up with your PCP in 2 weeks Expect a phone call for an outpatient stress test you have high cholesterol take omega 3 fatty fish oil 3,000 mg daily. Follow low cholesterol diet. Mediterranean diet is one of the best diet plans Take omeprazole, famotidine and carafate for your GERD Take ibuprofen 600 mg every 6 hours for the next 3 days for pain you can take tylenol as well this will also help with any inflammation. Stand Alone Forms: Nursing Discharge Form Referrals: Neela Orantes NP [Primary Care Provider] - 09/24/21 8:45 am Activity:: Activity as Tolerated Equipment/Supplies:: No Equipment Needed Diet:: Other Discharge Orders Discharge Orders: Discharge Order (Routine); Ordered 09/11/21 Ordered By: Camille Dyre Other Ambulatory Orders: [facility] rest & stress grp (Routine) Location: None Selected Ordered By: Camille Dyer DS: Summary Time Spent with Patient providing and/or coordinating discharge services: Less than 30 minutes Status at Discharge Functional status at discharge: independent ambulation Overall status at discharge: patient is back to baseline Mental Status: mental status grossly normal Speech and Movement: speech and movement normal Mood: congruent mood Affect: normal affect Exam Const General: cooperative, comfortable and no acute distress Orientation: alert, awake and oriented x3 Eyes Eyelids: eyelids normal Pupils: PERRL EOM: EOM intact bilaterally Neck Neck: normal visual inspection and no JVD Lymphatic: no lymphadenopathy noted Resp Effort & Inspection: normal respiratory effort Auscultation: clear to auscultation bilaterally Cardio Jugular venous pressure: no JVD Rhythm: regular rhythm Heart Sounds: S1 normal GI Inspection: normal to inspection Palpation: soft and nontender Auscultation: normal bowel sounds General: No CVA tenderness Skin General skin exam: no rashes or lesions noted Neuro General: patient alert, patient awake and patient oriented x3 Cognition: normal cognition Speech: speech normal Gait: normal gait Extrem General: normal to inspection, full ROM and no clubbing, cyanosis or edema Psych Mental Status: mental status grossly normal Speech and Movement: speech and movement normal Mood: congruent mood Affect: normal affect DS: Data Vitals/I&O Vitals and I&O: Vital Signs Temperature 37.2 C 09/11/21 07:57 Temperature Source Tympanic 09/11/21 07:57 Pulse 73 09/11/21 07:57 Pulse Rhythm Regular 09/11/21 09:50 Pulse 78 09/10/21 10:20 Respiratory Rate 16 09/11/21 07:57 Respiratory Effort Non-Labored 09/11/21 09:50 Respiratory Depth Normal 09/11/21 09:50 Respiratory Pattern Normal 09/11/21 09:50 Blood Pressure 113/75 09/11/21 07:57 Blood Pressure Mean 98 09/10/21 10:15 Blood Pressure Position Sitting 09/10/21 06:38 Pulse Oximetry 94 09/11/21 07:57 Oxygen Delivery Method Room Air 09/11/21 07:57 Oxygen Flow Rate 0 09/11/21 07:57 Pain Level 2 09/11/21 07:57 Comment 09/10/21 11:53 Intake & Output 09/10/21 09/10/21 09/11/21 11:59 23:59 11:59 Intake Total 50 / 1482.719 7917.500 / 1437.500 Output Total 525 / 525 Balance 50 / 912.500 862.500 / 912.500 Weight 63.049 kg Intake: IV 50 / 3786.601 2214.500 / 1197.500 Oral 240 / 240 Output: Urine 525 / 525 Other: Urine Color Light Afua Urine Appearance Clear Urine Odor None Voiding Methods Toilet Data Completed and Pending Completed studies during hospitalization [Text1]: Conclusion Left Ventricle : The left ventricle is normal size. The left ventricular ejection fraction is within the normal range. There is normal left ventricular wall thickness. There is normal LV segmental wall motion. The left ventricular diastolic function is normal. LVEF is 59%. Right Ventricle : Right ventricle is grossly normal in size. Right ventricular systolic function is grossly normal. Atria : The left atrium size is normal. The right atrium size is normal. Tricuspid Valve : The tricuspid valve is normal in structure. Trace tricuspid regurgitation. Unable to assess PA pressure. There is no tricuspid valve stenosis. Please see remainder of findings for further details. : 1960Age: 61 Exam(s) a CT:CT abdomen & pelvis w Exam(s) CT ABDOMEN PELVIS W EXAM: CT ABDOMEN PELVIS W CLINICAL HISTORY: worsening upper abdominal pain. TECHNIQUE: Imaging Protocol: Axial computed tomography images with coronal and sagittal reformatted images were created and reviewed CONTRAST MATERIAL: Intravenous: Omnipaque 350 Contrast volume:100 ml Oral: no COMPARISON: CT CT renal colic wo from 08/09/2018 FINDINGS: ABDOMEN: Lung Bases: Normal where visualized. Liver: Normal density. No measurable mass. Gallbladder and biliary tract: No radiodense calculus or dilation. Pancreas: Normal density, no abnormal calcifications or inflammatory process. Spleen: Normal. Kidneys: Normal size, contour and axis. No radiodense stones or obstructive uropathy. No masses seen. Adrenal glands: No masses seen. Abdominal Aorta: Abdominal portion non-dilated. PELVIS: Bladder: No gross wall thickening. No calculi.No focal mass. Bowel: Diverticulosis without evidence of diverticulitis. No obstruction or bowel wall thickening. Appendix normal. Peritoneal cavity: No ascites, collection or mesenteric inflammatory response. Bones: Within normal limits for age. Reproductive organs: Within normal limits. Lymph nodes: Unremarkable. Impression: No acute abnormality.. Labs on day of discharge: Labs from last 24 hours 09/11/21 09/11/21 09/10/21 07:00 07:00 13:40 Sodium 140 Potassium 3.7 Chloride 105 Carbon Dioxide 24.7 Anion Gap 10.3 BUN 17 Creatinine 0.7 Estimated GFR/1.73 m2 >= 60.00 Glucose 82 Hemoglobin A1c 5.3 Calcium 9.1 Troponin I < 50 Triglycerides 115 Total Cholesterol 228 H LDL Cholesterol, Calc 144 H HDL Cholesterol 61 COVID-19 Source SARS-CoV-2 (PCR) 09/10/21 09:07 Sodium Potassium Chloride Carbon Dioxide Anion Gap BUN Creatinine Estimated GFR/1.73 m2 Glucose Hemoglobin A1c Calcium Troponin I Triglycerides Total Cholesterol LDL Cholesterol, Calc HDL Cholesterol COVID-19 Source Nasal/Nares SARS-CoV-2 (PCR) Negative PFSH All Active Problems Hyperlipidemia (Acute) Abnormal EKG (Acute) GERD (gastroesophageal reflux disease) (Chronic) Screening for cholesterol level (Acute) Joint pain (Acute) Left ureteral stone (Acute) Trochanteric bursitis of left hip (Acute 05/22/15) Sciatica (Acute 03/08/11) WITH LEFT WEAKNESS Right ureteral stone (Acute 04/07/16) Patellar tendinitis of left knee (Acute 05/22/15) Knee pain, left anterior (Acute 04/29/15) Arthralgia of left acromioclavicular joint (Acute 10/14/17) Adhesive capsulitis of left shoulder (Acute 09/16/17) Left flank pain (Acute) a. After ureteral stent removal. Menopause (Chronic) Smoker (Chronic) a. Half pack a day. 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
[2021-09-11 13:15] VITALS: PULSE 78
--- NOTE | 2021-09-11 13:24 | PDOC.CMDIS ---
- If Service Date Differs Date of service: 09/11/21 Time of Service: 13:24 LACE Index Scoring Tool - Questions: Length of Stay (in days): 1 Acuity (Admit via E.D.?): Yes E.D. Visits: 1 - Answers: Total Score: 5 Risk of Readmission: Low Risk Care Management Discharge Reason for Hospitalization: Abnormal EKG Discharge Plan: Padma will be discharged home with no new servcices. She will follow up with her community providers and plan of care and transport with family. Patient/Family Education Needs: Review of discharge instructions, follow up plan including stress test, limitations, activity, diet, Ask Me Threre
--- NOTE | 2021-09-11 14:51 | CHAPLAIN ---
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 She feel on , she said, and has had abdominal pain since then. When she came to the ED to get it check out, they found that she needs to have stress test done. It will be done as an outpatient. Padma lives with her partner Pierre. They have been together for over 20 years. She has two children and her daughter lives and works in [place]. Padma said she is very well supported by her co-workers, calling them her work-family.
== END 2021-09-11 13:22 | disposition home or self-care (01) ==
LOC: ER 10:51 → MS 11:28
PROVIDERS: Emergency Medicine; Admitting Provider Internal Medicine; Emergency Provider Student in an Organized Health Care Education/Training Program; PCP Nurse Practitioner; Visit Provider Internal Medicine
DX: R10.13 Epigastric pain (principal); R94.31 Abnormal electrocardiogram [ECG] [EKG]; K21.9 Gastro-esophageal reflux disease without esophagitis; E78.5 Hyperlipidemia, unspecified; Z20.822 Contact with and (suspected) exposure to COVID-19; Z87.891 Personal history of nicotine dependence; J45.20 Mild intermittent asthma, uncomplicated; M54.32 Sciatica, left side; W00.0XXA Fall on same level due to ice and snow, initial encounter
CPT/HCPCS: 36415; 80048; 80053; 80061; 83690; 87635; 93005; 94640; 96361; 96365; 96375; 99285; J1650; 74177; 81003; 81015; 83036; 83735; 84484; 85025; 93010; 93306; 99217; G0378; J2060; J3490

== ENCOUNTER 2021-10-15 00:41 | Outpatient (CLI) | payer OTHER, SELFPAY ==
--- NOTE | 2021-10-15 08:00 | ETT_ITS ---
APPROVED REPORT Exam: Exercise Treadmill Patient Location: Out-Patient Room/Bed: Stress Nurse: Maria Antonia Rogers RN Ordering Provider:OLGA JESSENIA, Contact Number: [phone] BMI: 23.12 Baseline Rhythm: Sinus Rhythm Comment: Diffuse ST depressions inferior and anterior leads Indications: Abnormal EKG, Chest pain Medical History Medical History: Hypertension, hyperlipidemia, asthma, COPD, smoker (current), gerd, positional verti go Cardiac Medications: Albuterol sulfate Allergies: Morphine, codeine, sulfa Cardiac Risk Factors: Hypertension, hyperlipidemia, asthma, COPD, smoker (current), family hx Previous Cardiac Procedures: None Pretest Chest Pain Characteristics: None Exercise History: Indeterminate Physical Disabilities: None Lung Sounds: Clear to auscultation Heart Sounds: Regular Stress Test Details Test: Exercise stress testing was performed using a Willy protocol. Rest Stress HR Resting HR Supine: 79 bpm Max Heart Rate (APMHR): 159 bpm Resting HR Standin bpm Target HR (85% APMHR): 135 bpm Max HR Achieved: 160 bpm % of APMHR: 100 Recovery HR: 95 bpm HR response to stress: Normal HR response to stress BP Resting BP Supine: 148/90 mmHg Resting BP Standin/88 mmHg Max BP: 180/94 mmHg Recovery BP: 142/84 mmHg BP response to stress: Normal blood pressure response to stress. ECG Resting ECG: Sinus Rhythm Ectopy: None Comment: Diffuse ST depressions inferior and anterior leads Stress ECG: Sinus Tachycardia ST Change: No significant ST segment changes noted Arrhythmia: Occasional PVCs Recovery ECG: Sinus Rhythm Recovery ST Change: No significant ST segment changes noted Recovery Arrhythmia: Rare PVCs Clinical Reason for Termination: Fatigue, Dyspnea Stress Symptoms: General Fatigue, Dyspnea Exercise duration: 6 min07 sec Highest Stage Reached: Stage 3: 3.4 mph at 14% grade. Exercise capacity: 7.20 METs Benitez Treadmill Score: 5.5 Rate Pressure Product: 42070 Stress ECG Conclusion 1. The resting electrocardiogram showed left ventricular hypertrophy with repolarization abnormalitie s 2. Patient exercised on the Willy protocol and completed a workload of 7.2 METS 3. Normal heart rate and blood pressure response to exercise. The patient achieved 100% of predicted heart rate for age 4. There was no electrocardiographic evidence of myocardial ischemia with exercise 5. Rare PVCs were noted Bneitez Treadmill Score is 5.5 which is Low risk. Stress Test Summary STAGE Time (mins) Speed (mph) Grade (%) HR BP SYMPTOMS METS Supine 79 148/90 Standing 94 146/88 SpO2 97% 1 3 1.7 10 135 160/88 Mild SOB, SpO2 94% 4.6 2 6 2.5 12 158 180/94 Moderate SOB, SpO2 96% 7 3 9 3.4 14 160 SpO2 96% 10.2 1 min recovery 146 180/90 Mild SOB, SpO2 96% 3 min recovery 106 170/92 SOB resolved, SpO2 96% 6 min recovery 95 142/84 SpO2 96%
== END 2021-10-15 01:01 ==
PROVIDERS: PCP Nurse Practitioner; Visit Provider Nurse Practitioner
DX: R07.89 Other chest pain
CPT/HCPCS: 93017

== ENCOUNTER 2022-01-04 10:08 | Outpatient (REF) | payer OTHER, SELFPAY ==
[2022-01-04 20:14] LABS: HCT 46.9 % (36.0-46.0); HGB 14.2 g/dL (11.2-15.7); MCH 26.2 pg (27.0-33.0); MCHC 30.3 % (32.0-36.0); MCV 86 fL (80-95); MPV 10.5 fL (8.0-11.0); Platelet Count 225 10^3/uL (130-400); RBC 5.43 10^6/uL (3.93-5.22); RDW-SD 44.5 fL; WBC 7.81 10^3/uL (4.4-10.8)
[2022-01-04 20:30] LABS: Calculated LDL 176 mg/dL (<100); Cholesterol 265 mg/dL (<200); HDL Cholesterol 66 mg/dL (40-60); Triglyceride 116 mg/dL (<150)
== END 2022-01-04 10:09 | disposition home or self-care (01) ==
LOC: LBN 10:08
PROVIDERS: PCP Nurse Practitioner; Visit Provider Nurse Practitioner
DX: E78.5 Hyperlipidemia, unspecified (principal); R79.89 Other specified abnormal findings of blood chemistry
CPT/HCPCS: 80061; 85027

== ENCOUNTER 2022-03-22 09:58 | Outpatient (REF) | payer OTHER, SELFPAY | END 2022-03-22 09:59 | disposition home or self-care (01) | LOC: LBN 09:58 | PROVIDERS: PCP Nurse Practitioner; Visit Provider Nurse Practitioner | DX: R31.9 Hematuria, unspecified (principal) | CPT/HCPCS: 87086 ==

== ENCOUNTER 2022-03-30 10:30 | Outpatient (REF) | payer OTHER, SELFPAY ==
[2022-03-30 16:15] LABS: Source Nasal/Nares
[2022-03-30 22:48] LABS: COVID-19 PCR Negative (Negative)
== END 2022-03-30 10:31 | disposition home or self-care (01) ==
LOC: LBN 10:30
PROVIDERS: PCP Nurse Practitioner; Visit Provider Urology
DX: Z20.822 Contact with and (suspected) exposure to COVID-19 (principal); Z01.818 Encounter for other preprocedural examination
CPT/HCPCS: 87635

== ENCOUNTER 2022-04-01 08:17 | Observation (INO) | payer OTHER, SELFPAY ==
[2022-04-01] VITALS (14 sets, daily range): BP systolic 86–137; BP diastolic 57–84; PULSE 58–93; RESP 9–23; TEMP 35.4–37; O2SAT 93–97; BMI 22.6
[2022-04-01] MEDS: Lactated Ringers 1,000 ML 80 ML IV (06:43)
--- NOTE | 2022-04-01 06:45 | DI.RAD_ITS ---
Exam(s) XR RETROGRADE IN OR EXAM: XR RETROGRADE IN OR CLINICAL HISTORY: left ureteral stone. TECHNIQUE: 2D and realtime digital imaging was performed. COMPARISON: No exams were available for comparison FINDINGS: Left knee was provided for Dr. Samayoa for guidance with retrograde examination. Please see procedure note for details. Fluoro time 48.8 seconds RADIATION DOSE DELIVERED: rosette Chase=7.71 mGy
--- NOTE | 2022-04-01 06:55 | W.PM.HP.N ---
Date of service: 04/01/22 Time of Service: 06:55 Assessment and Plan Assessment and plan (1) Left ureteral stone: Status: Acute Assessment and plan: We will plan to address the stone with ureteroscopy. In the past, she has required admission for ureteral spasms/pain control following her ureteroscopies. I will plan to place a ureteral catheter hooked directly into the lumen of a martínez catheter and admit the patient for pain control afterwards. 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 She has had multiple stones which tend to settle in the left distal ureter.? The stones tend to be present in the upper pole ureter. About a week ago, she began having urinary frequency and urgency.? She thought she might have a urinary tract infection that was treated with an antibiotic.? When her symptoms persisted and her urine culture was negative, she was referred for a CT scan.? The scan demonstrated a 2 mm stone in the left distal ureter. She is not having any flank pain.? She did have some nausea initially but none recently.? She has no fever or chills.? She has not seen any gross hematuria. Review of Systems Narrative: No fevers or chills No vision change or dysphasia No diabetes or thyroid No shortness of breath, cough or hemoptysis No chest pain or palpitations GERD. No hepatitis, ulcers, jaundice, diarrhea or constipation No seizures, strokes or peripheral neuropathy No bleeding disorders or anemia No gout PFSH All Active Problems Hyperlipidemia (Acute) Abnormal EKG (Acute) GERD (gastroesophageal reflux disease) (Chronic) Screening for cholesterol level (Acute) Joint pain (Acute) Left ureteral stone (Acute) Trochanteric bursitis of left hip (Acute 05/22/15) Sciatica (Acute 03/08/11) WITH LEFT WEAKNESS Patellar tendinitis of left knee (Acute 05/22/15) Knee pain, left anterior (Acute 04/29/15) Arthralgia of left acromioclavicular joint (Acute 10/14/17) Adhesive capsulitis of left shoulder (Acute 09/16/17) Left flank pain (Acute) a. After ureteral stent removal. Menopause (Chronic) Smoker (Chronic) a. Half pack a day. Medical History (Updated 04/01/22 @ 06:59 by Renato Samayoa MD) GERD (gastroesophageal reflux disease) Mild intermittent reactive airway disease (07/08/15) flovent 07/2013, intol albuterol (escobar), post infection Nephrolithiasis Right ureteral stone (04/07/16) Surgical History H/O breast augmentation History of section Social History Smoking/Tobacco Use Status: Current-Occasional Tobacco Type: cigarettes Smoking risk assessment performed?: Yes Alcohol Intake: current Alcohol Intake frequency: a few times a week Alcohol type: wine Drug use: Never Substance use type: does not use Number of Children: 2 current occupation: works at [employer] What type of physical activity do you participate in: none Seatbelt use: always Drive intox or ride w/intox driver engineer: No Working smoke detector in home: Yes Fire extinguisher in home: Yes Carbon monox detector in home: Yes Do you feel safe at home: Yes Do you feel safe in your relationship?: Yes Meds Allergies and Home Medications Allergies Allergy/AdvReac Type Severity Reaction Status Date / Time Sulfa (Sulfonamide Allergy Unknown Rash Verified 04/01/22 06:12 Antibiotics) morphine AdvReac Severe Psychosis Verified 04/01/22 06:12 codeine AdvReac Intermediate jittery Verified 04/01/22 06:12 Home Medications Medication Instructions Recorded Confirmed Type albuterol sulfate 90 mcg/actuation 2 puff inhalation Q4H PRN #1 unit 04/13/21 03/31/22 Rx aerosol inhaler fluticasone propionate 110 220 mcg inhalation BID ##3 04/13/21 03/31/22 Rx mcg/actuation HFA aerosol inhaler (Flovent HFA) lorazepam 0.5 mg tablet 0.5 mg PO DAILY PRN anxiety #14 09/24/21 03/31/22 Rx tabs famotidine 20 mg tablet 20 mg PO DAILY #90 tabs 12/31/21 04/01/22 Rx ketorolac 10 mg tablet 10 mg PO Q8H PRN pain #15 tabs 03/18/22 03/31/22 Rx tamsulosin 0.4 mg capsule 0.4 mg PO QHS #7 caps 03/29/22 04/01/22 Rx phenazopyridine 200 mg tablet 200 mg PO TID PRN 03/31/22 04/01/22 History (Pyridium) Exam Const General: cooperative Neck Neck: supple Resp Effort & Inspection: normal respiratory effort Auscultation: clear to auscultation bilaterally Cardio Rate: regular rate Rhythm: regular rhythm Neuro General: patient alert, patient awake and patient oriented x3 Results Last Vital Signs Temp 36.8 C 04/01/22 06:15 Pulse 75 04/01/22 06:15 Resp 18 04/01/22 06:15 BP 137/84 04/01/22 06:15 Pulse Ox 97 04/01/22 06:15
--- NOTE | 2022-04-01 06:59 | ANES.PREOP_ITS ---
General Info Date of Service Date Performed: 04/01/22 Height: 5 ft 5 in Weight: 61.9 kg Body Mass Index (BMI): 22.6 Surgical Procedure: Operation Date: 04/01/22 07:40 Proposed Procedure Side Surgeon p Cystoscopy/Possible Laser/Retrograde/Ureteroscopy/Possible Stent Left Renato Samayoa MD Meds Allergies and Home Medications Allergies Allergy/AdvReac Type Severity Reaction Status Date / Time Sulfa (Sulfonamide Allergy Unknown Rash Verified 04/01/22 06:12 Antibiotics) morphine AdvReac Severe Psychosis Verified 04/01/22 06:12 codeine AdvReac Intermediate jittery Verified 04/01/22 06:12 Home Medication Medication Instructions Recorded albuterol sulfate 90 mcg/actuation 2 puff inhalation Q4H PRN #1 unit 04/13/21 aerosol inhaler fluticasone propionate 110 220 mcg inhalation BID ##3 04/13/21 mcg/actuation HFA aerosol inhaler (Flovent HFA) lorazepam 0.5 mg tablet 0.5 mg PO DAILY PRN anxiety #14 09/24/21 tabs famotidine 20 mg tablet 20 mg PO DAILY #90 tabs 12/31/21 ketorolac 10 mg tablet 10 mg PO Q8H PRN pain #15 tabs 03/18/22 tamsulosin 0.4 mg capsule 0.4 mg PO QHS #7 caps 03/29/22 phenazopyridine 200 mg tablet 200 mg PO TID PRN 03/31/22 (Pyridium) Current Visit Medications: Current Medications Generic Name Dose Route Start Last Admin Trade Name Freq PRN Reason Stop Dose Admin Ringer's Solution 1,000 mls @ 80 mls/hr 04/01/22 06:00 04/01/22 06:43 IV 04/30/22 23:59 80 mls/hr INFUSION HOWARD Administration Cefazolin Sodium/Dextrose 2 gm in 50 mls @ 100 mls/hr 04/01/22 06:00 Ancef Duplex IVPB 04/30/22 23:59 PREOP HOWARD IV Miscellaneous Supplies 1 each 04/01/22 06:00 Iv Access IV 04/30/22 23:59 DIRECTED HOWARD Sodium Chloride 0 ml 04/01/22 06:00 Normal Saline Flush 10 Ml Syr IV 04/30/22 23:59 PRN PRN Sodium Chloride 0 ml 04/01/22 06:00 Normal Saline 10 Ml Vial IJ 04/30/22 23:59 DIRECTED PRN Sterile Water 0 ml 04/01/22 06:00 Water,Injection,Sterile 10 Ml Vial IJ 04/30/22 23:59 DIRECTED PRN PFSH Active Problems Active Problems: Problem Status Onset Code Hyperlipidemia E78.5 Abnormal EKG R94.31 Acute epigastric pain R10.13 GERD (gastroesophageal reflux disease) K21.9 Screening for cholesterol level Z13.220 Joint pain M25.50 Left ureteral stone N20.1 Trochanteric bursitis of left hip 05/22/15 M70.62 Sciatica 03/08/11 M54.30 Right ureteral stone 04/07/16 N20.1 Patellar tendinitis of left knee 05/22/15 M76.52 Knee pain, left anterior 04/29/15 M25.562 Arthralgia of left acromioclavicular joint 10/14/17 M25.512 Adhesive capsulitis of left shoulder 09/16/17 M75.02 Left flank pain R10.9 Menopause Z78.0 Smoker F17.200 Medical History Medical History GERD (gastroesophageal reflux disease) Mild intermittent reactive airway disease (07/08/15) flovent 07/2013, intol albuterol (pedro luiskey), post infection Nephrolithiasis Surgical History Surgical History H/O breast augmentation History of section Tobacco Smoking/Tobacco Use Status: Current-Occasional Tobacco Type: cigarettes Alcohol Alcohol Intake: current Alcohol intake frequency: a few times a week Alcohol type: wine Substance Use Substance use: Never Substance use type: does not use Vital Signs and Lab Results Vital Signs Most Recent Vital Signs in EMR: Most Recent Vital Signs Temp Pulse Resp BP Pulse Ox 36.8 C 75 18 137/84 97 04/01/22 06:15 04/01/22 06:15 04/01/22 06:15 04/01/22 06:15 04/01/22 06:15 Lab Results Blood Type / Crossmatch: No Data to Display Complete Blood Count: No Data to Display Complete Metabolic Panel: No Data to Display Liver Function Panel: No Data to Display Coagulation Panel: No Data to Display Cardiac Panel: No Data to Display Arterial Blood Gas: No Data to Display Venous Blood Gas: No Data to Display Pancreas Panel: No Data to Display Thyroid Panel: No Data to Display Infectious Disease: Coronavirus (COVID-19)(PCR) Negative (Negative) 03/30/22 15:45 Coronavirus 2019 Source Nasal/Nares 03/30/22 15:45 Blood Cultures: No Data to Display Toxicology Panel: No Data to Display Imaging and Studies Imaging and Studies Study information below may be from another EMR and interpreted by another provider. Please see original notes in EMR for more complete details. EKG Summary: Conclusion Sinus rhythm...normal P axis, V-rate 60- 99 Probable left atrial enlargement...P >50mS, <-0.10mV V1 09/10/21 Stress Test Summary: Stress ECG Conclusion 1. The resting electrocardiogram showed left ventricular hypertrophy with repolarization abnormalities 2. Patient exercised on the Willy protocol and completed a workload of 7.2 METS 3. Normal heart rate and blood pressure response to exercise. The patient achieved 100% of predicted heart rate for age 4. There was no electrocardiographic evidence of myocardial ischemia with e xercise 5. Rare PVCs were noted Benitez Treadmill Score is 5.5 which is Low risk. 10/15/21 Echocardiogram Summary: Conclusion Left Ventricle : The left ventricle is normal size. The left ventricular ejection fraction is within the normal range. There is normal left ventricular wall thickness. There is normal LV segmental wall motion. The left ventricular diastolic function is normal. LVEF is 59%. Right Ventricle : Right ventricle is grossly normal in size. Right ventricular systolic function is grossly normal. Atria : The left atrium size is normal. The right atrium size is normal. Tricuspid Valve : The tricuspid valve is normal in structure. Trace tricuspid regurgitation. Unable to assess PA pressure. There is no tricuspid valve stenosis. Please see remainder of findings for further details. 09/10/21 Anesthesia Assessment and Plan Anesthesia History Personal History: No History of Anesthesia Complications Family History: No Family History of Anesthesia Complications Exercise Tolerance Exercise Tolerance: Metabolic Equivalents>4 Pertinent Negatives Pertinent Negatives: No Major Cardiovascular Symptoms or Complaints, No Major Pulmonary Symptoms or Complaints and Other (GERD last night and this am. Took famotidine. Plan RSI) Cardiac & Pulmonary Exam Cardiac Exam: Normal S1/S2 Heart Sounds Pulmonary Exam: Clear Bilateral Breath Sounds Implantable Cardiac Device Does patient have a Pacemaker or an ICD?: No Airway Exam Known Difficult Airway: No Mallampati Class: 2 Mouth Opening: Normal (> 3cm) Thyromental Distance: Greater than 3 cm Neck Range of Motion: Full ROM Neck Circumference: Normal Teeth Condition: Normal Dentition ASA Classification ASA Score: ASA 2 Emergency Case?: No NPO Status NPO Status: NPO Clears >2 hours, Solids >8 hours Anesthesia Plan Resuscitation Status: Full Code Anesthesia Technique: General Anesthesia Airway Planned: Endotracheal Tube Monitors Used: Standard Monitors
[2022-04-01] MEDS: ceFAZolin 2 GM/50 ML BAG IVPB (07:38)
[2022-04-01] MEDS: Lidocaine 2% Jelly 6 ML SYR (07:50)
--- NOTE | 2022-04-01 08:23 | ROE_ITS ---
Date of service: 04/01/22 Time of Service: 08:23 Operative Note Operative Note DATE OF PROCEDURE: 04/01/22 PRE-OP DIAGNOSIS: Left ureteral stone POST-OP DIAGNOSIS: same PROCEDURE: Cystoscopy, left retrograde pyelogram, left ureteroscopy, insert left ureteral catheters SURGEON: Renato Samayoa ANESTHESIA TYPE: General LMA/ETT Refer to Anesthesia Record ESTIMATED BLOOD LOSS: 5 PATHOLOGY: none sent COMPLICATIONS: None Patient was transported to: PACU Patient's condition: stable Implants: 5 Guamanian ureteral catheters in each of her left ureteral segments 16 Guamanian Saeed catheter with 10 cc of sterile water in catheter balloon Indications: This is a 62-year-old who has a 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 She has had multiple episodes of renal colic and has required ureteroscopy for distal left ureteral stones. The stones are usually in the ureter associated with the upper pole calyx. She presented with frequency and urgency. She had no evidence of a urinary tract infection. Her CT scan demonstrates a left distal ureteral stone. She presents for stone manipulation Findings: Narrowed left distal ureter (both segments) Procedure Description: The patient was given IV antibiotics and brought to the operating department on 04/01/2022. After successful induction of general anesthesia, she was placed in the dorsal lithotomy position. Her genitalia was prepped and draped. 2% Xylocaine jelly was instilled into the urethra. A 22 Guamanian rigid cystoscope was passed through the urethra into the bladder. The bladder was inspected using a 30 degree lens. There was one ureteral orifice on the right side and 2 orifices on the left. Each of the orifices on the left was cannulated with a 5 Guamanian access catheter. A retrograde film was obtained by injecting Omnipaque through the access catheter under fluoroscopic guidance. No filling defect was seen in the distal ureter in either of the left ureteral segments. I then passed a guidewire through the access catheter in each segment and advanced the wire up to the kidney. The access catheters were then removed. A semirigid ureteroscope was then passed through the urethra into the bladder. Each of the ureteral segments was then inspected ureteroscopically by passing the scope alongside the wire. No filling defects or stones were identified. The scope was removed. This is a 5 Guamanian ureteral access catheters were then advanced back over the ureteral wires. The wires were removed leaving the stents in place. A 16 Guamanian Saeed catheter was passed through the urethra into the bladder. The catheter balloon was inflated with 10 cc of sterile water. The ureteral access catheters were then brought into the lumen of the Saeed catheter and allowed to drain into a gravity drainage bag. The patient tolerated this procedure with no complications.
[2022-04-01] MEDS: Phenazopyridine 200 MG TAB PO ×3 (08:53→23:18)
[2022-04-01] MEDS: Oxybutynin 5 MG TAB PO (09:00)
--- NOTE | 2022-04-01 09:31 | W.ANESPOSTOP ---
Postoperative Evaluation Date, Time and Location Date Performed: 04/01/22 Time Performed: 09:14 Patient Location: PACU Vital Signs Most Recent Imported Vital Signs: Most Recent Vital Signs Temp Pulse Resp BP Pulse Ox 36.3 C L 60 10 L 115/71 95 04/01/22 09:20 04/01/22 09:20 04/01/22 09:20 04/01/22 09:20 04/01/22 09:20 Pain Score Most Recent Pain Score: Discomfort due to martínez, no flank pain Assessment Mental Status: Awake (Alert & Oriented to Patient Baseline) Airway and Respiratory Function: Patent airway with normal (patient baseline) respiratory exam Cardiovascular Function: Hemodynamically Stable Hydration Status: Adequately Hydrated Nausea & Vomiting: No Nausea or Vomiting Pain: Pain is tolerable per patient Peripheral Nerve Block: Patient did not receive a nerve block
[2022-04-01] MEDS: Acetaminophen 325 MG TAB 650 MG PO ×3 (12:16→19:38)
[2022-04-01] MEDS: Lactated Ringers 1,000 ML 100 ML IV (12:18)
[2022-04-01] MEDS: Ketorolac 15 MG/ML VIAL IVP ×2 (13:36→19:39)
--- NOTE | 2022-04-01 16:21 | CHAPLAIN ---
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 She had a procedure earlier today to remove a ureteral stone and is starting to feel better. She'll stay here over night and she was fine with that telling me that she really needs to rest.
[2022-04-01] MEDS: Normal Saline Flush 10 ML SYR IV (19:40)
[2022-04-02] MEDS: Lactated Ringers 1,000 ML 100 ML IV (00:06)
[2022-04-02] MEDS: Ketorolac 15 MG/ML VIAL IVP ×2 (01:36→08:16)
[2022-04-02] MEDS: Normal Saline Flush 10 ML SYR IV ×2 (01:37→08:17)
[2022-04-02] MEDS: Acetaminophen 325 MG TAB 650 MG PO ×2 (01:48→06:36)
[2022-04-02] MEDS: Oxybutynin 5 MG TAB PO (01:48)
[2022-04-02 02:59] VITALS: BP 113/72; PULSE 80; RESP 17; TEMP 36.6; O2SAT 93
[2022-04-02] MEDS: Phenazopyridine 200 MG TAB PO (06:36)
[2022-04-02] MEDS: Famotidine 20 MG TAB PO (07:37)
[2022-04-02] MEDS: LORazepam 0.5 MG TAB PO (07:37)
--- NOTE | 2022-04-02 07:37 | PGE_ITS ---
Date of Service Date of service: 04/02/22 Time of Service: 07:37 Assessment and Plan Assessment and plan (1) Left ureteral stone: Status: Acute Assessment and plan: We will plan to remove the Saeed catheter and ureteral catheters this morning after her next dose of Toradol. We will also premedicate her with some Ativan to help with her anxiety and also to provide some muscle relaxation. I will check on her later this morning and we can decide about discharge plans. Subjective Subjective Interval history since last seen: The patient has had some abdominal discomfort and bladder pressure overnight. She has had dryness heaves but no vomiting. Exam Narrative Exam Narrative: She appears anxious. There is a Saeed catheter with ureteral catheter is attached draining brown- tinged urine (combination of Pyridium and blood and urine) Objective Last Vital Signs Temp 36.6 C 04/02/22 02:59 Pulse 80 04/02/22 02:59 Resp 17 04/02/22 02:59 BP 113/72 04/02/22 02:59 Pulse Ox 93 04/02/22 02:59
[2022-04-02 07:51] VITALS: BP 100/62; PULSE 54; RESP 17; TEMP 37.2; O2SAT 93
[2022-04-02 11:13] VITALS: BP 109/68; PULSE 62; RESP 17; TEMP 37; O2SAT 93
--- NOTE | 2022-04-02 11:48 | DSE_ITS ---
Date of service: 04/02/22 Time of Service: 11:48 DS: Diagnosis Discharge Diagnosis (1) Left ureteral stone: Status: Acute Discharge Plan Disposition Patient Disposition: HOME Condition: Stable Discharge Details Reason For Visit: Left Ureteral Stone Admit Date/Time: 04/01/22 08:17 Admit Provider: Renato Samayoa Attending Provider: Renato Samayoa Primary Care Provider: Neela Orantes Hospital Course Hospital Course: The patient was brought to the operating room on 04/01/2022 for planned ureteroscopy. In the past, she had significant postoperative wound requiring hospitalization, so we elected to keep the patient in the hospital following this procedure that we plan on giving her [id number] IV ketorolac. After the ureteroscopy was completed, we placed ureteral stents in both of her left ureters. We anchored the stents to a Martínez catheter and allow the catheter to drain overnight. She did have some discomfort likely related to the catheter and stents overnight. We removed the catheter and stents on postoperative day #1 and the patient has been feeling fairly comfortable since then. She is felt to be ready for discharge on 04/02/2022 Home Meds and New Rx's Prescriptions: Continued lorazepam 0.5 mg tablet 0.5 mg PO DAILY PRN (Reason: anxiety) Qty: 14 2RF famotidine 20 mg tablet 20 mg PO DAILY Qty: 90 0RF fluticasone propionate [Flovent HFA] 110 mcg/actuation HFA aerosol inhaler 220 mcg Inhalation BID Qty: 3 3RF Rx Instructions: 2 puffs bid; rinse mouth after use; DISPENSE WITH A SPACER yearly albuterol sulfate 90 mcg/actuation HFA aerosol inhaler 2 puff Inhalation Q4H PRN Qty: 1 12RF Rx Instructions: with SPACER for reactive airway, wheezing ketorolac 10 mg tablet 10 mg PO Q8H PRN (Reason: pain) Qty: 15 0RF phenazopyridine [Pyridium] 200 mg tablet 200 mg PO TID MDD 3 PRN Discontinued tamsulosin 0.4 mg capsule 0.4 mg PO QHS Qty: 7 0RF Discharge Instructions Additional Instructions: No need to strain urine Call my office early next week for a progress report Follow-up appointment in my office in 6 to 8 weeks with renal ultrasound. Activity:: Activity as Tolerated Equipment/Supplies:: No Equipment Needed Diet:: As Tolerated Discharge Orders Discharge Orders: Discharge Order (Routine); Ordered 04/02/22 Ordered By: Renato Samayoa DS: Summary Time Spent with Patient providing and/or coordinating discharge services: Less than 30 minutes Status at Discharge Functional status at discharge: independent ambulation Overall status at discharge: patient is back to baseline Mental Status: mental status grossly normal Speech and Movement: speech and movement normal Mood: congruent mood Affect: normal affect Exam Narrative Exam Narrative: On discharge, the patient appears comfortable. Her vital signs are documented elsewhere Her abdomen is soft with no guarding or rebound tenderness She is awake and alert Psych Mental Status: mental status grossly normal Speech and Movement: speech and movement normal Mood: congruent mood Affect: normal affect DS: Data Vitals/I&O Vitals and I&O: Vital Signs Temperature 37.0 C 04/02/22 11:13 Temperature Source Tympanic 04/02/22 11:13 Pulse 62 04/02/22 11:13 Pulse Rhythm Regular 04/02/22 09:28 Respiratory Rate 17 04/02/22 11:13 Respiratory Effort Non-Labored 04/02/22 09:28 Respiratory Depth Normal 04/02/22 09:28 Respiratory Pattern Normal 04/02/22 09:28 Blood Pressure 109/68 04/02/22 11:13 Pulse Oximetry 93 04/02/22 11:13 Respiratory End-tidal CO2 36 04/01/22 09:20 Oxygen Delivery Method Room Air 04/02/22 11:13 Oxygen Flow Rate 0 04/02/22 11:13 Pain Level 0 04/02/22 11:13 Comment 04/01/22 15:39 Intake & Output 04/01/22 04/01/22 04/02/22 11:59 23:59 11:59 Intake Total 800 / 2350 1550 / 2350 1300 / 1300 Output Total 450 / 750 300 / 750 950 / 950 Balance 350 / 1600 1250 / 1600 350 / 350 Weight 61.9 kg Intake: IV 700 / 2050 1350 / 2050 1000 / 1000 Oral 100 / 300 200 / 300 300 / 300 Output: Urine 450 / 750 300 / 750 950 / 950 Other: Urine Color Mercado Dark Red Mercado [place] Urine Appearance Clear Hematuria Sediment Comment 10 cc of ns removed from catheter balloon, martínez was easily removed along with both stents that were tapped to the catheter. pt tolerated removal, education on voiding post catheter. Emesis Description None Voiding Methods Indwelling Catheter Indwelling Catheter Toilet PFSH All Active Problems Hyperlipidemia (Acute) Abnormal EKG (Acute) GERD (gastroesophageal reflux disease) (Chronic) Screening for cholesterol level (Acute) Joint pain (Acute) Left ureteral stone (Acute) Trochanteric bursitis of left hip (Acute 05/22/15) Sciatica (Acute 03/08/11) WITH LEFT WEAKNESS Patellar tendinitis of left knee (Acute 05/22/15) Knee pain, left anterior (Acute 04/29/15) Arthralgia of left acromioclavicular joint (Acute 10/14/17) Adhesive capsulitis of left shoulder (Acute 09/16/17) Left flank pain (Acute) a. After ureteral stent removal. Menopause (Chronic) Smoker (Chronic) a. Half pack a day. Medical History GERD (gastroesophageal reflux disease) Mild intermittent reactive airway disease (07/08/15) flovent 07/2013, intol albuterol (escobar), post infection Nephrolithiasis Right ureteral stone (04/07/16) Surgical History H/O breast augmentation History of section Social History Smoking/Tobacco Use Status: Current-Occasional Tobacco Type: cigarettes Smoking risk assessment performed?: Yes Alcohol Intake: current Alcohol Intake frequency: a few times a week Alcohol type: wine Drug use: Never Substance use type: does not use Number of Children: 2 current occupation: works at [employer] What type of physical activity do you participate in: none Seatbelt use: always Drive 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
== END 2022-04-02 13:12 | disposition home or self-care (01) ==
LOC: MS 09:35
PROVIDERS: Admitting Provider Urology; PCP Nurse Practitioner; Visit Provider Urology
PROC: (CPT 52332; principal; 2022-04-01 07:30)
DX: N20.1 Calculus of ureter (principal); R39.15 Urgency of urination; R35.0 Frequency of micturition; E78.5 Hyperlipidemia, unspecified; K21.9 Gastro-esophageal reflux disease without esophagitis; F17.210 Nicotine dependence, cigarettes, uncomplicated; J45.20 Mild intermittent asthma, uncomplicated; Q62.5 Duplication of ureter
CPT/HCPCS: 52332; 52005; 96374; 96376; 74420; G0378; J0131; J0690; J1100; J1885; J2250; J2405; J2704

== ENCOUNTER 2022-04-04 09:48 | Observation (INO) | payer OTHER, SELFPAY ==
[2022-04-04 09:53] VITALS: BP 144/81; PULSE 81; RESP 18; TEMP 37; O2SAT 93
[2022-04-04 10:16] LABS: Clarity Cloudy (Clear); Leukocyte Esterase Color Interference (Negative); Nitrite Color Interference (Negative); Specific Gravity 1.015 (1.005-1.025)
[2022-04-04 10:17] LABS: Bilirubin Color Interference (Negative); Blood Color Interference (Negative); Glucose Color Interference mg/dL (Negative); Ketones Color Interference mg/dL (Negative); Urobilinogen Color Interference EU/dL (Up TO 0.2)
[2022-04-04 10:19] LABS: Bacteria Few HPF (Negative); C & S Indicated? Yes; Casts Negative LPF (Negative); Crystals Negative HPF (Negative); Epithelial Cells Rare HPF (Negative); Mucus Negative (Negative); RBC >50 HPF (0-2); WBC >50 HPF (0-5)
--- NOTE | 2022-04-04 10:30 | DI.CT_ITS ---
Exam(s) CT ABDOMEN PELVIS WO EXAM: CT ABDOMEN PELVIS WO CLINICAL HISTORY: left flank pain,recent stone removal, uti. TECHNIQUE: Imaging Protocol: Axial computed tomography images with coronal and sagittal reformatted images were created and reviewed. Oral: yes COMPARISON: CT CT ABDOMEN PELVIS WO from 03/26/2022 FINDINGS: ABDOMEN: Lung Bases: Normal where visualized. Liver: Normal density. No measurable mass. Gallbladder and biliary tract: No radiodense calculus or dilation. Pancreas: Normal density, no abnormal calcifications or inflammatory process. Spleen: Normal. Kidneys: There is a duplicated left renal collecting system. Both the ureters merge just above the u reterovesical junction. No ureteral stones are identified. There is moderate hydronephrosis, worst of the lower pole moiety. There are tiny nonobstructing stones in both kidneys. There is also right mild right hydronephrosis with dilatation of the renal pelvis which was not seen previously. There is no visible right ureteral calculus. Adrenal glands: No masses seen. Lymph nodes: Within normal limits. Abdominal Aorta: Abdominal portion non-dilated. PELVIS: Bladder: Symmetric distention, no gross wall thickening. Bowel: Diverticulosis sigmoid region. No obstruction or bowel wall thickening. Peritoneal cavity: No ascites, collection or mesenteric inflammatory response. Reproductive organs: Within normal limits. Bones: Within normal limits for age. IMPRESSION: Bilateral hydronephrosis without evidence of visible obstructing stones. Duplicated left collecting system. Punctate bilateral renal calculi. RADIATION DOSE DELIVERED: 849.79mGy.cm Total DLP DATA REPOSITORY: All CT scans at this facility are submitted to the National Radiology Data Registry (NRDR) Dose Index Registry (DIR) with the [employer] (A[employer]). RADIATION OPTIMIZATION: All CT scans at this facility use at least one of these dose optimization te chniques: automated exposure control; mA and/or kV adjustment per patient size (includes targeted exa ms where dose is matched to clinical indication); or iterative reconstruction.
[2022-04-04 10:46] LABS: Abs Immature Grans 0.04 10^3/uL (0.0-0.06); Absolute Basophil Count 0.07 10^3/uL (0.0-0.2); Absolute Eosinophil Count 0.22 10^3/uL (0.0-0.7); Absolute Lymphocyte Count 1.36 10^3/uL (1.2-3.4); Absolute Monocyte Count 0.53 10^3/uL (0.1-0.8); Absolute Neutrophil Count 6.07 10^3/uL (1.2-6.7); Basophils % 0.8; Eosinophils % 2.7; HCT 43.9 % (36.0-46.0); HGB 13.7 g/dL (11.2-15.7); Immature Grans % 0.5; Lymphocytes % 16.4; MCH 26.3 pg (27.0-33.0); MCHC 31.2 % (32.0-36.0); MCV 84 fL (80-95); Monocytes % 6.4; Neutrophils % 73.2; RBC 5.21 10^6/uL (3.93-5.22); RDW 13.1 % (11.7-14.6); RDW-SD 40.5 fL; WBC 8.29 10^3/uL (4.4-10.8)
[2022-04-04 10:59] LABS: ALT 78 U/L (14-59); AST 53 U/L (15-37); Albumin 3.7 g/dL (3.4-5.0); Alkaline Phosphatase 115 U/L (46-116); Anion Gap 8.6 mmol/L (3-11); BUN 19 mg/dL (7-18); Bilirubin, Total 0.6 mg/dL (0.2-1.0); CO2 27.4 mmol/L (21.0-32.0); CREATININE 0.8 mg/dL (0.55-1.02); Calcium 8.9 mg/dL (8.5-10.1); Chloride 106 mmol/L (98-107); Glucose 115 mg/dL (74-106); Potassium 3.4 mmol/L (3.5-5.1); Sodium 142 mmol/L (136-145); Total Protein 7.2 g/dL (6.4-8.2)
[2022-04-04 11:03] LABS: Diff Comment Diff Reviewed; RBC Morphology Normal
--- NOTE | 2022-04-04 11:11 | DI.VRAD_ITS ---
PROCEDURE INFORMATION: Exam: CT Abdomen And Pelvis Without Contrast Exam date and time: 04/04/2022 10:53 AM Age: 62 years old Clinical indication: Other: Left flank pain, recent stone removal, UTI; Prior surgery; Surgery date: Post-operative (0-2 days); Surgery type: Left flank recent stone removal 2 days ago TECHNIQUE: Imaging protocol: Computed tomography of the abdomen and pelvis without contrast. Radiation optimization: All CT scans at this facility use at least one of these dose optimization techniques: automated exposure control; mA and/or kV adjustment per patient size (includes targeted exams where dose is matched to clinical indication); or iterative reconstruction. COMPARISON: CT ABDOMEN PELVIS WO 03/26/2022 12:57 PM FINDINGS: Liver: Normal. No mass. Gallbladder and bile ducts: Normal. No calcified stones. No ductal dilation. Pancreas: Normal. No ductal dilation. Spleen: Normal. No splenomegaly. Adrenal glands: Normal. No mass. Kidneys and ureters: Duplicated left renal collecting system. Significantly worsening hydronephrosis since previous examination of both the upper and lower pole moieties. No ureteral calculus is identified. May be due to recently passed stone. Duplicated ureters appear to merge just proximal to the ureterovesical junction. Additional workup of the wall thickening is suggested. Punctate nonobstructing renal calculi bilaterally. Stomach and bowel: Colonic diverticulosis without CT evidence of diverticulitis. Appendix: No evidence of appendicitis. Intraperitoneal space: Unremarkable. No free air. No significant fluid collection. Vasculature: Unremarkable. No abdominal aortic aneurysm. Lymph nodes: Unremarkable. No enlarged lymph nodes. Urinary bladder: Mild irregular wall thickening along the posterior bladder and distal left ureter. Reproductive: Unremarkable as visualized. Bones/joints: Unremarkable. No acute fracture. Soft tissues: Unremarkable. IMPRESSION: 1. Duplicated left renal collecting system. Significantly worsening hydronephrosis since previous examination of both the upper and lower pole moieties. No ureteral calculus is identified. May be due to recently passed stone. 2. Mild irregular wall thickening along the posterior bladder and distal left ureter. Duplicated ureters appear to merge just proximal to the ureterovesical junction. Additional workup of the wall thickening is suggested. 3. Punctate nonobstructing renal calculi bilaterally. Dictated and Authenticated by: Steffanie Chisholm MD. Ordering:BRINDA oL MD
[2022-04-04] MEDS: LORazepam 20 MG/10 ML VIAL IVP (11:25)
[2022-04-04] MEDS: fentaNYL 100 MCG/2 ML VIAL 25 MCG IVP ×3 (11:25→18:49)
[2022-04-04] MEDS: Lactated Ringers 1,000 ML 1000 ML IV (11:27)
[2022-04-04] MEDS: cefTRIAXone 1 GM/50 ML BAG IVPB (11:51)
--- NOTE | 2022-04-04 12:03 | W.ED.GENAD ---
Discharge Plan Disposition Patient Disposition: [facility] INPATIENT Condition: Stable Discharge Details Clinical Impression: Left flank pain, UTI (urinary tract infection), Hydronephrosis Admit Date/Time: 04/04/22 12:02 Admit Provider: Yonny Rangel Attending Provider: Yonny Rangel Primary Care Provider: Neela Orantes ED Provider: Teresita Hall Discharge Data Discharge Date/Time-TO BE ENTERED AT DEPARTURE: 04/04/22 13:36 Medical Decision Making Patient has worsening hydronephrosis on CT scan Evidence of urinary tract infection, received NS, received fentanyl, and Ativan and is feeling symptomatically improved, nausea and pain Ceftriaxone administered, I did review patient's prior urine microanalysis results and I do not see that she has had a noncontaminated specimen with a positive culture in the past Case discussed with Dr. Samayoa given recent surgery on and he recommends treating similarly to pyelonephritis He will consult tomorrow Patient is afebrile and does not have leukocytosis in the emergency department Case discussed with Dr. Guzmán will admit patient Medical Records Medical records reviewed: Yes I reviewed the patient's medical records. Lab Data Lab results reviewed: Yes I reviewed the patient's lab results. HPI General Date/Time Provider Initiated Documentation: 04/04/22 09:50. HPI Narrative: This 62-year-old female with past medical history of hyperlipidemia, and ureterolithiasis presents with report of left flank pain, nausea, vomiting. She states that she had surgery performed to remove stone on . She is feeling symptomatically improved with and on Tuesday her symptoms worsen. She is been nauseous and in significant pain despite taking prescribed medications at home. She has not been able to tolerate p.o. per patient secondary to discomfort and nausea. She denies known exacerbating or alleviating factors. She denies cramping aching pain in her back. She denies any fever or chills. Related Data Home Medications Medication Instructions Recorded Confirmed albuterol sulfate 90 mcg/actuation 2 puff inhalation Q4H PRN #1 unit 04/13/21 04/04/22 aerosol inhaler fluticasone propionate 110 220 mcg inhalation BID ##3 04/13/21 04/04/22 mcg/actuation HFA aerosol inhaler (Flovent HFA) lorazepam 0.5 mg tablet 0.5 mg PO DAILY PRN anxiety #14 09/24/21 04/04/22 tabs famotidine 20 mg tablet 20 mg PO DAILY #90 tabs 12/31/21 04/04/22 ketorolac 10 mg tablet 10 mg PO Q8H PRN pain #15 tabs 03/18/22 04/04/22 phenazopyridine 200 mg tablet 200 mg PO TID PRN 03/31/22 04/04/22 (Pyridium) Previous Rx's Medication Instructions Recorded albuterol sulfate 90 mcg/actuation 2 puff inhalation Q4H PRN #1 unit 04/13/21 aerosol inhaler fluticasone propionate 110 220 mcg inhalation BID ##3 04/13/21 mcg/actuation HFA aerosol inhaler (Flovent HFA) lorazepam 0.5 mg tablet 0.5 mg PO DAILY PRN anxiety #14 09/24/21 tabs famotidine 20 mg tablet 20 mg PO DAILY #90 tabs 12/31/21 ketorolac 10 mg tablet 10 mg PO Q8H PRN pain #15 tabs 03/18/22 Allergies Allergy/AdvReac Type Severity Reaction Status Date / Time Sulfa (Sulfonamide Allergy Unknown Rash Verified 04/01/22 06:12 Antibiotics) morphine AdvReac Severe Psychosis Verified 04/01/22 06:12 codeine AdvReac Intermediate jittery Verified 04/01/22 06:12 General Stated Complaint: FlankPain KLARISSA: 3 Review of Systems All systems reviewed & are unremarkable except as noted in HPI and below PFSH All Active Problems Left flank pain (Acute) UTI (urinary tract infection) (Acute) Hydronephrosis (Acute) Hyperlipidemia (Acute) Abnormal EKG (Acute) GERD (gastroesophageal reflux disease) (Chronic) Screening for cholesterol level (Acute) Joint pain (Acute) Trochanteric bursitis of left hip (Acute 05/22/15) Sciatica (Acute 03/08/11) WITH LEFT WEAKNESS Patellar tendinitis of left knee (Acute 05/22/15) Knee pain, left anterior (Acute 04/29/15) Arthralgia of left acromioclavicular joint (Acute 10/14/17) Adhesive capsulitis of left shoulder (Acute 09/16/17) Left flank pain (Acute) a. After ureteral stent removal. Menopause (Chronic) Smoker (Chronic) a. Half pack a day. Medical History GERD (gastroesophageal reflux disease) Left ureteral stone Mild intermittent reactive airway disease (07/08/15) flovent 07/2013, intol albuterol (shakey), post infection Nephrolithiasis Right ureteral stone (04/07/16) Surgical History H/O breast augmentation History of section Social History Smoking/Tobacco Use Status: Current-Occasional Tobacco Type: cigarettes Smoking risk assessment performed?: Yes Alcohol Intake: current Alcohol Intake frequency: a few times a week Alcohol type: wine Drug use: Never Substance use type: does not use Number of Children: 2 current occupation: works at [employer] What type of physical activity do you participate in: none Seatbelt use: always 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 tenderness Back/Spine/Pelvis Back: CVA tenderness Neuro General: patient alert and patient oriented x3 Extrem Other: Distal pulses intact Course Vital Signs Vital signs: Vital Signs Temperature 37 C 04/04/22 09:53 Pulse 81 04/04/22 09:53 Respiratory Rate 18 04/04/22 09:53 Blood Pressure 144/81 H 04/04/22 09:53 Pulse Oximetry 93 04/04/22 09:53 Temperature 37 C 04/04/22 09:53 Temperature Source Temporal Artery Scan 04/04/22 09:53 Pulse 81 04/04/22 09:53 Respiratory Rate 18 04/04/22 09:53 Respiratory Effort 04/04/22 10:09 Blood Pressure 144/81 H 04/04/22 09:53 Blood Pressure Position Sitting 04/04/22 09:53 Pulse Oximetry 93 04/04/22 09:53 Oxygen Delivery Method Room Air 04/04/22 09:53 Oxygen Flow Rate 0 04/04/22 09:53 Pain Level 6 04/04/22 11:25 Lab/Test Results Lab/Test Results: 04/04/22 10:05 Urine - Reflex from Ua Urine Culture - Pending Laboratory Tests Range/Units 04/04/22 04/04/22 04/04/22 10:05 10:23 10:23 WBC (4.4-10.8) 10^3/uL 8.29 RBC (3.93-5.22) 10^6/uL 5.21 Hgb (11.2-15.7) g/dL 13.7 Hct (36.0-46.0) % 43.9 MCV (80-95) fL 84 MCH (27.0-33.0) pg 26.3 L MCHC (32.0-36.0) % 31.2 L RDW (11.7-14.6) % 13.1 Plt Count (130-400) 10^3/uL MPV (8.0-11.0) fL Immature Gran % 0.5 Neutrophils % 73.2 Lymphocytes % 16.4 Monocytes % 6.4 Eosinophils % 2.7 Basophils % 0.8 Nucleated RBC % (0.0-0.3) % 0.0 Absolute Neutrophils (1.2-6.7) 10^3/uL 6.07 Absolute Lymphocytes (1.2-3.4) 10^3/uL 1.36 Absolute Monocytes (0.1-0.8) 10^3/uL 0.53 Absolute Eosinophils (0.0-0.7) 10^3/uL 0.22 Absolute Basophils (0.0-0.2) 10^3/uL 0.07 RBC Morphology Normal Sodium (136-145) mmol/L 142 Potassium (3.5-5.1) mmol/L 3.4 L Chloride (98-107) mmol/L 106 Carbon Dioxide (21.0-32.0) mmol/L 27.4 Anion Gap (3-11) mmol/L 8.6 BUN (7-18) mg/dL 19 H Creatinine (0.55-1.02) mg/dL 0.8 Estimated GFR/1.73 m2 (mL/min/1.73m2) >= 60.00 Glucose (74-106) mg/dL 115 H Calcium (8.5-10.1) mg/dL 8.9 Total Bilirubin (0.2-1.0) mg/dL 0.6 AST (15-37) U/L 53 H ALT (14-59) U/L 78 H Alkaline Phosphatase (46-116) U/L 115 Total Protein (6.4-8.2) g/dL 7.2 Albumin (3.4-5.0) g/dL 3.7 Urine Color (Yellow) Brown Urine Clarity (Clear) Cloudy Urine pH (5-8) Ur Specific [place] (1.005-1.025) 1.015 Urine Protein (Negative) mg/dL Color Interference Urine Ketones (Negative) mg/dL Color Interference Urine Blood (Negative) Color Interference Urine Nitrite (Negative) Color Interference Urine Bilirubin (Negative) Color Interference Urine Urobilinogen (Up TO 0.2) EU/dL Color Interference Ur Leukocyte Esterase (Negative) Color Interference Urine RBC (0-2) HPF >50 H Urine WBC (0-5) HPF >50 H Ur Epithelial Cells (Negative) HPF Rare Urine Crystals (Negative) HPF Negative Urine Bacteria (Negative) HPF Few Urine Casts (Negative) LPF Negative Urine Mucus (Negative) Negative Ur Culture Indicated? Yes Urine Glucose (Negative) mg/dL Color Interference
[2022-04-04 12:19] LABS: Source Nasal/Nares
[2022-04-04 12:32] VITALS: BP 127/82; PULSE 61; RESP 16; TEMP 36.7; O2SAT 94
[2022-04-04 13:04] VITALS: BP 127/82; PULSE 61; RESP 16; TEMP 36.7; O2SAT 94
[2022-04-04 13:40] VITALS: BP 158/78; PULSE 60; RESP 18; TEMP 37; O2SAT 93
[2022-04-04 13:41] LABS: COVID-19 PCR Negative (Negative)
--- NOTE | 2022-04-04 15:17 | W.PM.HP.N ---
Date of service: 04/04/22 Time of Service: 15:17 Assessment and Plan Assessment and plan (1) Left flank pain: Status: Acute Assessment and plan: antiemetic (patient claims intolerance to all antiemetic except for ativan; she refused any zofran or phenergan or compazine). She has sensitivities to morphine and codeine but tolerated fentanyl given in the ER. I will repeat her fentanyl now but plan to treat her pain w/ iv ketorolac. Will order Tigan as well. She may need further lorazeapm to calm her anxiety. patient will be empirically treated for pyelonephritis although she is afebrile w/ no leukocytosis. Unable to evaluate her UA d/t recent pyridium causing color interference on readings of her nitrites, and leukocyte esterase. She does have >50 WBC and >50 RBC per HPF in her urine along w/ a few bacteria. I will continue the Rocephin 1 gm Q24h. Professional time spent interviewing and examining patient, discussion of goals of care with hospital team (care management, nursing and consulting professionals) was 30 minutes. (2) Hydronephrosis: Status: Acute Assessment and plan: No evidence of obstructing stones on renal CT scan but she has bilteral hydronephrosis. I will get renal US in the a.m. and consult w/ Dr. Samayoa to evaluate her in the morning. History of Present Illness History of Present Illness Chief Complaint: left flank pain, nausea Narrative: 62 year-old female history of nephrolithiasis There is a duplicated left renal collecting system. She has a history of multiple stones which tend to settle in the left distal ureter. She was hospitalized on 04/01/2022 for cystoscopy ureteroscopy in which she underwent left ureteroscopy and insertion of left ureteral catheter and had a left retrograde pyelogram. Patient was found to have 1 ureteral orifice on the right and 2 orifices on the left. Each orifice on the left was cannulated with a 5 Swedish access catheter. Retrograde film was obtained with no filling defects seen in the distal ureter in either the left ureteral segments. Saeed catheter was left in place overnight along with the ureteral stents. Catheter and stents were removed prior to discharge and she was discharged home on 04/02/2022. Since that time she has developed left flank pain with nausea and vomiting and chills. Work-up in the emergency department did not demonstrate a leukocytosis. CBC was normal however urinalysis was cloudy brown urine with greater than 50 red cells and 50 white cells per high-powered field with a few bacteria. Urine culture was sent. Patient was started on Rocephin 1 g IV for presumptive left pyelonephritis. Abdominal and pelvic CT scan without contrast was obtained and shows bilateral hydronephrosis without evidence of visible obstructing stones. Patient has punctate bilateral renal calculi and a duplicated left collecting system. COVID-19 nasal PCR was obtained as the patient was being admitted to the hospital. Nasal PCR for SARS-CoV-2 was negative. ER personnel contacted Dr. Samayoa who recommended treatment empirically for pyelonephritis. Patient is anxiety was treated with lorazepam 0.5 mg IV. Her pain was treated with fentanyl 25 mcg and as have already said she was started on Rocephin 1 g IV. She is now admitted on observation status for continued treatment of her nausea as well as her presumptive pyelonephritis. Review of Systems All systems reviewed & are unremarkable except as noted in HPI and below PFSH All Active Problems Left flank pain (Acute) UTI (urinary tract infection) (Acute) Hydronephrosis (Acute) Hyperlipidemia (Acute) Abnormal EKG (Acute) GERD (gastroesophageal reflux disease) (Chronic) Screening for cholesterol level (Acute) Joint pain (Acute) Trochanteric bursitis of left hip (Acute 05/22/15) Sciatica (Acute 03/08/11) WITH LEFT WEAKNESS Patellar tendinitis of left knee (Acute 05/22/15) Knee pain, left anterior (Acute 04/29/15) Arthralgia of left acromioclavicular joint (Acute 10/14/17) Adhesive capsulitis of left shoulder (Acute 09/16/17) Left flank pain (Acute) a. After ureteral stent removal. Menopause (Chronic) Smoker (Chronic) a. Half pack a day. Medical History GERD (gastroesophageal reflux disease) Left ureteral stone Mild intermittent reactive airway disease (07/08/15) flovent 07/2013, intol albuterol (escobar), post infection Nephrolithiasis Right ureteral stone (04/07/16) Surgical History H/O breast augmentation History of section Social History Smoking/Tobacco Use Status: Current-Occasional Tobacco Type: cigarettes Smoking risk assessment performed?: Yes Alcohol Intake: current Alcohol Intake frequency: a few times a week Alcohol type: wine Drug use: Never Substance use type: does not use Number of Children: 2 current occupation: works at [employer] What type of physical activity do you participate in: none Seatbelt use: always Drive intox or ride w/intox driver retraining 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: No Working smoke detector in home: Yes Fire extinguisher in home: Yes Carbon monox detector in home: Yes Do you feel safe at home: Yes Do you feel safe in your relationship?: Yes Meds Allergies and Home Medications Allergies Allergy/AdvReac Type Severity Reaction Status Date / Time Sulfa (Sulfonamide Allergy Unknown Rash Verified 04/01/22 06:12 Antibiotics) morphine AdvReac Severe Psychosis Verified 04/01/22 06:12 codeine AdvReac Intermediate jittery Verified 04/01/22 06:12 Home Medications Medication Instructions Recorded Confirmed Type albuterol sulfate 90 mcg/actuation 2 puff inhalation Q4H PRN #1 unit 04/13/21 04/04/22 Rx aerosol inhaler fluticasone propionate 110 220 mcg inhalation BID ##3 04/13/21 04/04/22 Rx mcg/actuation HFA aerosol inhaler (Flovent HFA) lorazepam 0.5 mg tablet 0.5 mg PO DAILY PRN anxiety #14 09/24/21 04/04/22 Rx tabs famotidine 20 mg tablet 20 mg PO DAILY #90 tabs 12/31/21 04/04/22 Rx ketorolac 10 mg tablet 10 mg PO Q8H PRN pain #15 tabs 03/18/22 04/04/22 Rx phenazopyridine 200 mg tablet 200 mg PO TID PRN 03/31/22 04/04/22 History (Pyridium) Exam Narrative Exam Narrative: Alert and oriented x4 HEENT: Atraumatic normocephalic, pupils equally round reactive to light and accommodation, extraocular motion intact, TMs intact, nares moist and patent without exudate or bleeding, oropharynx noninjected without exudate, teeth in good repair Neck: Supple, nontender, without thyromegaly or lymphadenopathy or JVD. Normal carotid pulses Lungs: Clear to auscultation and percussion Heart: Regular rate and rhythm without murmur rub or gallop. Normal apical impulse Abdomen: Nondistended, normal bowel sounds, no organomegaly, no bruits, no palpable masses, soft but tender over the left lower quadrant and suprapubic area Left flank is tender to palpation and percussion Genitalia and rectal exam: Deferred Breasts: Deferred Extremities: Normal range of motion with normal strength. No peripheral cyanosis or edema. Normal pulses Neurologic: Cranial nerves grossly within normal limits. Normal strength and sensation over the face trunk and extremities. Results Labs Result diagrams: 04/04/22 10:23 04/04/22 10:23 Labs: Laboratory Results - last 24 hr 04/04/22 04/04/22 04/04/22 10:05 10:23 10:23 WBC 8.29 RBC 5.21 Hgb 13.7 Hct 43.9 MCV 84 MCH 26.3 L MCHC 31.2 L RDW 13.1 Plt Count MPV Immature Gran % 0.5 Neutrophils % 73.2 Lymphocytes % 16.4 Monocytes % 6.4 Eosinophils % 2.7 Basophils % 0.8 Nucleated RBC % 0.0 Absolute Neutrophils 6.07 Absolute Lymphocytes 1.36 Absolute Monocytes 0.53 Absolute Eosinophils 0.22 Absolute Basophils 0.07 RBC Morphology Normal Sodium 142 Potassium 3.4 L Chloride 106 Carbon Dioxide 27.4 Anion Gap 8.6 BUN 19 H Creatinine 0.8 Estimated GFR/1.73 m2 >= 60.00 Glucose 115 H Calcium 8.9 Total Bilirubin 0.6 AST 53 H ALT 78 H Alkaline Phosphatase 115 Total Protein 7.2 Albumin 3.7 Urine Color Brown Urine Clarity Cloudy Urine pH Ur Specific [place] 1.015 Urine Protein Color Interference Urine Ketones Color Interference Urine Blood Color Interference Urine Nitrite Color Interference Urine Bilirubin Color Interference Urine Urobilinogen Color Interference Ur Leukocyte Esterase Color Interference Urine RBC >50 H Urine WBC >50 H Ur Epithelial Cells Rare Urine Crystals Negative Urine Bacteria Few Urine Casts Negative Urine Mucus Negative Ur Culture Indicated? Yes Urine Glucose Color Interference COVID-19 Source SARS-CoV-2 (PCR) 04/04/22 12:05 WBC RBC Hgb Hct MCV MCH MCHC RDW Plt Count MPV Immature Gran % Neutrophils % Lymphocytes % Monocytes % Eosinophils % Basophils % Nucleated RBC % Absolute Neutrophils Absolute Lymphocytes Absolute Monocytes Absolute Eosinophils Absolute Basophils RBC Morphology Sodium Potassium Chloride Carbon Dioxide Anion Gap BUN Creatinine Estimated GFR/1.73 m2 Glucose Calcium Total Bilirubin AST ALT Alkaline Phosphatase Total Protein Albumin Urine Color Urine Clarity Urine pH Ur Specific [place] Urine Protein Urine Ketones Urine Blood Urine Nitrite Urine Bilirubin Urine Urobilinogen Ur Leukocyte Esterase Urine RBC Urine WBC Ur Epithelial Cells Urine Crystals Urine Bacteria Urine Casts Urine Mucus Ur Culture Indicated? Urine Glucose COVID-19 Source Nasal/Nares SARS-CoV-2 (PCR) Negative Last Vital Signs Temp 37.0 C 04/04/22 13:40 Pulse 60 04/04/22 13:40 Resp 18 04/04/22 13:40 BP 158/78 H 04/04/22 13:40 Pulse Ox 93 04/04/22 13:40
[2022-04-04] MEDS: Ketorolac 30 MG/ML VIAL IVP (15:32)
[2022-04-04] MEDS: Normal Saline Flush 10 ML SYR IVP ×3 (15:33→20:18)
[2022-04-04 15:44] VITALS: BP 133/64; PULSE 71; RESP 17; TEMP 37; O2SAT 95
[2022-04-04] MEDS: Enoxaparin 40 MG/0.4 ML SYR SC (15:51)
[2022-04-04] MEDS: Potassium Chloride 20 MEQ TABCR PO ×2 (15:52→20:18)
[2022-04-04 16:04] LABS: Lab Add On Test DONE
[2022-04-04 16:20] LABS: C-Reactive Protein 5.37 mg/dL (0.0-0.3)
[2022-04-04 16:30] LABS: ESR 20 mm/hr (0-30)
[2022-04-04 17:24] LABS: Procalcitonin 0.2 ng/mL
[2022-04-04] MEDS: LORazepam 0.5 MG TAB PO (18:49)
[2022-04-04] MEDS: Ketorolac 15 MG/ML VIAL IVP (20:36)
[2022-04-04] MEDS: Phenazopyridine 200 MG TAB PO (20:53)
[2022-04-04 23:44] VITALS: BP 128/62; PULSE 71; RESP 17; TEMP 37; O2SAT 96
[2022-04-05] MEDS: fentaNYL 100 MCG/2 ML VIAL 25 MCG IVP ×2 (00:37→05:06)
[2022-04-05] MEDS: Normal Saline Flush 10 ML SYR IVP ×5 (00:38→20:08)
[2022-04-05] MEDS: Ketorolac 15 MG/ML VIAL IVP ×2 (02:41→08:03)
[2022-04-05] MEDS: Phenazopyridine 200 MG TAB PO (05:07)
[2022-04-05 05:23] VITALS: BP 153/84; PULSE 63; RESP 16; TEMP 37; O2SAT 63
[2022-04-05 06:25] LABS: Abs Immature Grans 0.03 10^3/uL (0.0-0.06); Absolute Basophil Count 0.06 10^3/uL (0.0-0.2); Absolute Eosinophil Count 0.29 10^3/uL (0.0-0.7); Absolute Lymphocyte Count 1.37 10^3/uL (1.2-3.4); Absolute Monocyte Count 0.36 10^3/uL (0.1-0.8); Absolute Neutrophil Count 3.61 10^3/uL (1.2-6.7); Eosinophils % 5.1; HGB 13.7 g/dL (11.2-15.7); Immature Grans % 0.5; MCH 26.7 pg (27.0-33.0); MCHC 31.9 % (32.0-36.0); MCV 84 fL (80-95); MPV 10.3 fL (8.0-11.0); Monocytes % 6.3; Neutrophils % 63.1; Platelet Count 164 10^3/uL (130-400); RBC 5.13 10^6/uL (3.93-5.22); RDW 13.1 % (11.7-14.6); RDW-SD 40.2 fL; WBC 5.72 10^3/uL (4.4-10.8)
--- NOTE | 2022-04-05 07:00 | DI.US_ITS ---
Exam(s) US RENAL EXAM: US RENAL CLINICAL HISTORY: hydronephrosis and flank pain; recent renal stones TECHNIQUE: Ultrasound of both kidneys performed using standard protocol. COMPARISON: US US ECHOCARDIOGRAM from 09/10/2021 FINDINGS: RIGHT KIDNEY: Both kidneys exhibit normal size and corticomedullary differentiation no masses nor cysts identified. 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 There appears to be slight dilatation collec ting system on each side. URINARY BLADDER: Prevoid volume is 290 cc Postvoid volume is 11 cc No evidence of bladder mass nor diverticuli. Ureterovesical jets: Right is seen. Left is not. IMPRESSION: 1. There are few echogenic foci in both kidneys, ranging up to 5 millimeters size. Subtle suggestio n of bilateral hydronephrosis. 2. 11 cc postvoid residual volume in the urinary bladder. DATA REPOSITORY:
[2022-04-05 07:27] LABS: ALT 72 U/L (14-59); AST 43 U/L (15-37); Albumin 3.1 g/dL (3.4-5.0); Alkaline Phosphatase 98 U/L (46-116); Anion Gap 5.6 mmol/L (3-11); BUN 14 mg/dL (7-18); Bilirubin, Total 0.7 mg/dL (0.2-1.0); CO2 27.4 mmol/L (21.0-32.0); CREATININE 0.5 mg/dL (0.55-1.02); Calcium 8.6 mg/dL (8.5-10.1); Chloride 108 mmol/L (98-107); Glucose 92 mg/dL (74-106); Potassium 4.1 mmol/L (3.5-5.1); Sodium 141 mmol/L (136-145); Total Protein 6.4 g/dL (6.4-8.2)
[2022-04-05 08:17] VITALS: BP 125/81; PULSE 69; RESP 16; TEMP 36.9; O2SAT 92
[2022-04-05] MEDS: Potassium Chloride 20 MEQ TABCR PO (09:27)
[2022-04-05] MEDS: Famotidine 20 MG TAB PO (09:27)
--- NOTE | 2022-04-05 09:44 | W.PM.PROGNOT ---
Date of Service Date of service: 04/05/22 Time of Service: 09:44 Assessment and Plan Assessment and plan (1) Left flank pain: Status: Acute Assessment and plan: continue scheduled toradol and prn narcotic analgesics. Will try to transition to oral narcotic pain meds and then transition to just NSAID's. (2) UTI (urinary tract infection): Status: Acute Assessment and plan: continue Rocephin pending urine cultures results. (3) Hydronephrosis: Status: Acute Assessment and plan: await renal US and urology consultation. (4) Nephrolithiasis: Assessment and plan: I have ordered her urine to be strained for any stones for stone analysis. Subjective Subjective Interval history since last seen: Patient feels somewhat better but still has left flank pain and crampy abdominal pain along w/ dysuria. She is afebrile. Urine culture is growing mixed gram positive nickolas and gram negative rods, both less than 10,000 colonies. She is currently on Rocephin. Dr. Samayoa has been consulted on her case as she has bilateral hydronephrosis but no obstructing stones were seen on renal CT. Renal US is pending. Exam Narrative Exam Narrative: Padma appears more comfortable than yesterday; her pain is starting to increase and her nurse, Jim is medicating her Left flank is still photographer to percussion Abomen: normal bowel sounds, soft, w/ some tenderness in LLQ and into the left pelvic area Objective Last Vital Signs Temp 36.9 C 04/05/22 08:17 Pulse 69 04/05/22 08:17 Resp 16 04/05/22 08:17 BP 125/81 04/05/22 08:17 Pulse Ox 92 04/05/22 08:17 Laboratory Results - last 24 hr 04/04/22 04/04/22 04/04/22 10:05 10:23 10:23 WBC 8.29 RBC 5.21 Hgb 13.7 Hct 43.9 MCV 84 MCH 26.3 L MCHC 31.2 L RDW 13.1 Plt Count MPV Immature Gran % 0.5 Neutrophils % 73.2 Lymphocytes % 16.4 Monocytes % 6.4 Eosinophils % 2.7 Basophils % 0.8 Nucleated RBC % 0.0 Absolute Neutrophils 6.07 Absolute Lymphocytes 1.36 Absolute Monocytes 0.53 Absolute Eosinophils 0.22 Absolute Basophils 0.07 RBC Morphology Normal ESR Sodium 142 Potassium 3.4 L Chloride 106 Carbon Dioxide 27.4 Anion Gap 8.6 BUN 19 H Creatinine 0.8 Estimated GFR/1.73 m2 >= 60.00 Glucose 115 H Calcium 8.9 Magnesium Total Bilirubin 0.6 AST 53 H ALT 78 H Alkaline Phosphatase 115 C-Reactive Protein Total Protein 7.2 Albumin 3.7 Procalcitonin Urine Color Brown Urine Clarity Cloudy Urine pH Ur Specific [place] 1.015 Urine Protein Color Interference Urine Ketones Color Interference Urine Blood Color Interference Urine Nitrite Color Interference Urine Bilirubin Color Interference Urine Urobilinogen Color Interference Ur Leukocyte Esterase Color Interference Urine RBC >50 H Urine WBC >50 H Ur Epithelial Cells Rare Urine Crystals Negative Urine Bacteria Few Urine Casts Negative Urine Mucus Negative Ur Culture Indicated? Yes Urine Glucose Color Interference COVID-19 Source SARS-CoV-2 (PCR) Add-On Test Request 04/04/22 04/04/22 04/04/22 10:23 10:23 10:23 WBC RBC Hgb Hct MCV MCH MCHC RDW Plt Count MPV Immature Gran % Neutrophils % Lymphocytes % Monocytes % Eosinophils % Basophils % Nucleated RBC % Absolute Neutrophils Absolute Lymphocytes Absolute Monocytes Absolute Eosinophils Absolute Basophils RBC Morphology ESR 20 Sodium Potassium Chloride Carbon Dioxide Anion Gap BUN Creatinine Estimated GFR/1.73 m2 Glucose Calcium Magnesium Total Bilirubin AST ALT Alkaline Phosphatase C-Reactive Protein 5.37 H Total Protein Albumin Procalcitonin Urine Color Urine Clarity Urine pH Ur Specific [place] Urine Protein Urine Ketones Urine Blood Urine Nitrite Urine Bilirubin Urine Urobilinogen Ur Leukocyte Esterase Urine RBC Urine WBC Ur Epithelial Cells Urine Crystals Urine Bacteria Urine Casts Urine Mucus Ur Culture Indicated? Urine Glucose COVID-19 Source SARS-CoV-2 (PCR) Add-On Test Request DONE 04/04/22 04/04/22 04/05/22 10:23 12:05 06:00 WBC RBC Hgb Hct MCV MCH MCHC RDW Plt Count MPV Immature Gran % Neutrophils % Lymphocytes % Monocytes % Eosinophils % Basophils % Nucleated RBC % Absolute Neutrophils Absolute Lymphocytes Absolute Monocytes Absolute Eosinophils Absolute Basophils RBC Morphology ESR Sodium Cancelled Potassium Cancelled Chloride Cancelled Carbon Dioxide Cancelled Anion Gap Cancelled BUN Cancelled Creatinine Cancelled Estimated GFR/1.73 m2 Cancelled Glucose Cancelled Calcium Cancelled Magnesium Cancelled Total Bilirubin Cancelled AST Cancelled ALT Cancelled Alkaline Phosphatase Cancelled C-Reactive Protein Total Protein Cancelled Albumin Cancelled Procalcitonin 0.2 Urine Color Urine Clarity Urine pH Ur Specific [place] Urine Protein Urine Ketones Urine Blood Urine Nitrite Urine Bilirubin Urine Urobilinogen Ur Leukocyte Esterase Urine RBC Urine WBC Ur Epithelial Cells Urine Crystals Urine Bacteria Urine Casts Urine Mucus Ur Culture Indicated? Urine Glucose COVID-19 Source Nasal/Nares SARS-CoV-2 (PCR) Negative Add-On Test Request 04/05/22 04/05/22 06:00 07:05 WBC 5.72 RBC 5.13 Hgb 13.7 Hct 43.0 MCV 84 MCH 26.7 L MCHC 31.9 L RDW 13.1 Plt Count 164 MPV 10.3 Immature Gran % 0.5 Neutrophils % 63.1 Lymphocytes % 24.0 Monocytes % 6.3 Eosinophils % 5.1 Basophils % 1.0 Nucleated RBC % 0.0 Absolute Neutrophils 3.61 Absolute Lymphocytes 1.37 Absolute Monocytes 0.36 Absolute Eosinophils 0.29 Absolute Basophils 0.06 RBC Morphology ESR Sodium 141 Potassium 4.1 Chloride 108 H Carbon Dioxide 27.4 Anion Gap 5.6 BUN 14 Creatinine 0.5 L Estimated GFR/1.73 m2 >= 60.00 Glucose 92 Calcium 8.6 Magnesium 2.0 Total Bilirubin 0.7 AST 43 H ALT 72 H Alkaline Phosphatase 98 C-Reactive Protein Total Protein 6.4 Albumin 3.1 L Procalcitonin Urine Color Urine Clarity Urine pH Ur Specific [place] Urine Protein Urine Ketones Urine Blood Urine Nitrite Urine Bilirubin Urine Urobilinogen Ur Leukocyte Esterase Urine RBC Urine WBC Ur Epithelial Cells Urine Crystals Urine Bacteria Urine Casts Urine Mucus Ur Culture Indicated? Urine Glucose COVID-19 Source SARS-CoV-2 (PCR) Add-On Test Request PAWSS Have you Been Recently Intoxicated or Drunk Within the Last 30 days?: No Have you Ever Experienced Previous Episodes of Alcohol Withdrawal?: No Have you ever Experienced Withdrawal Seizures?: No Have you ever Experienced Delirium Tremens(DT)s?: No Have you ever undergone Alcohol Rehabilitation Treatment (i.e, inpt ot outpatient treatment programs)?: No Have you ever Experienced Blackouts?: No Have you ever Combined Alcohol with other Downers within the last 90 days?: No Have you ever Combined Alcohol with any other Substance of Abuse during the last 90 days?: No Positive Blood Alcohol level on Presentation? [PCS.BAL]: No Evidence of Increased Autonomic Activity (i.e. HR>120, tremor, sweating, agitation, nausea)?: No Result: 0
[2022-04-05] MEDS: cefTRIAXone 1 GM/50 ML BAG IVPB (11:24)
--- NOTE | 2022-04-05 14:45 | INITIAL_ITS ---
- If Service Date Differs Date of service: 04/05/22 Time of Service: 14:45 Care Management Initial Assess REASON FOR HOSPITALIZATION:: Nephrolithiasis PAST MEDICAL HISTORY/PAST SURGICAL HISTORY:: All Active Problems. Left flank pain (Acute). UTI (urinary tract infection) (Acute). Hydronephrosis (Acute). Hyperlipidemia (Acute). Abnormal EKG (Acute). GERD (gastroesophageal reflux disease) (Chronic). Screening for cholesterol level (Acute). Joint pain (Acute). Trochanteric bursitis of left hip (Acute 05/22/15). Sciatica (Acute 03/08/11). WITH LEFT WEAKNESS. Patellar tendinitis of left knee (Acute 05/22/15). Knee pain, left anterior (Acute 04/29/15). Arthralgia of left acromioclavicular joint (Acute 10/14/17). Adhesive capsulitis of left shoulder (Acute 09/16/17). Left flank pain (Acute). a. After ureteral stent removal. Menopause (Chronic). Smoker (Chronic). a. Half pack a day. Medical History . GERD (gastroesophageal reflux disease). Left ureteral stone. Mild intermittent reactive airway disease (07/08/15). [facility]ent 07/2013, [facility] post infection. Nephrolithiasis. Right ureteral stone (04/07/16). Surgical History . H/O breast augmentation. History of section PREVIOUS FUNCTIONAL STATUS/SOCIAL/FAMILY SUPPORTS:: Padma lives in [place] with her significant other Pierre. She drives and is independent at baseline. CURRENT FUNCTIONAL STATUS:: Padma is sitting up in her chair when CM met with her, visiting with her s/o. ADVANCE DIRECTIVES:: None on file. Has patient been provided with info about the portal/API?: Yes Did the patient sign up for the portal?: Yes (Prior to admission) CODE STATUS:: Full Code INSURANCE COVERAGE / FINANCIAL ISSUES:: [employer] CURRENT HOME/COMMUNITY SERVICES/EQUIPMENT:: None PRIMARY CARE PHYSICIAN:: Neela Orantes PATIENT/FAMILY EDUCATION NEEDS:: Review discharge instructions, limitations, medications and plan to follow up with community providers. ask me three. TRANSPORTATION:: via private vehicle with significant other PLAN:: Padma will discharge home via private vehicle with family when medically ready. She will follow up with her community providers and discharge plan of care as prescribed.
--- NOTE | 2022-04-05 16:22 | UCONE_ITS ---
Date of service: 04/05/22 Time of Service: 16:22 Assessment and Plan Assessment and plan (1) Left flank pain: Status: Acute Assessment and plan: Clinically, she is responding as if the flank pain and hydronephrosis was all related to postoperative edema. This edema is usually present about 48 to 72 hours after a procedure or after stent is removed. It is self-limited and we really need to replace the stent unless the patient has signs or symptoms of pyelonephritis. I have suggested that we watch her overnight to make sure that her pain does not recur. As long as she remains comfortable through the night, I will plan on discharging her in the morning on antibiotics. 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 She was having flank pain, frequency and urgency. A CT showed a distal ureteral stone in the upper pole ureteral segment. She underwent ureteroscopy. The ureteroscope both ureteral segments. In the past, she has had difficulty tolerating ureteral stents. She has had episodes of postop pain as well. We elected to use ureteral catheters that we brought this through the urethral meatus and hooked them into the lumen of the Saeed catheter as an alternative to indwelling stents. We left the stents and catheter in place for 24 hours while keeping her hospitalized and giving her IV Toradol. We removed the ureteral stents on postoperative day #1 and she was discharged to home later that day. She began having some pain about 24 hours later. Yesterday, the pain became so severe that she came into the emergency department. The CT scan showed dilation of both kidney and ureteral segments on the left. No distal stones were seen, so I suspected the areas were related to postop edema. Her urinalysis was abnormal but she was not having signs or symptoms of sepsis. She was admitted for pain control and antibiotics. Over the next 24 hours she has improved. She has less pain and less nausea. Review of Systems Narrative: No fevers or chills No vision change or dysphasia No diabetes or thyroid No shortness of breath, cough or hemoptysis No chest pain or palpitations Hx GERD. No hepatitis, ulcers, jaundice No seizures, strokes or peripheral neuropathy No bleeding disorders or anemia Joint pain. No gout PFSH All Active Problems Left flank pain (Acute) UTI (urinary tract infection) (Acute) Hydronephrosis (Acute) Hyperlipidemia (Acute) Abnormal EKG (Acute) GERD (gastroesophageal reflux disease) (Chronic) Screening for cholesterol level (Acute) Joint pain (Acute) Trochanteric bursitis of left hip (Acute 05/22/15) Sciatica (Acute 03/08/11) WITH LEFT WEAKNESS Patellar tendinitis of left knee (Acute 05/22/15) Knee pain, left anterior (Acute 04/29/15) Arthralgia of left acromioclavicular joint (Acute 10/14/17) Adhesive capsulitis of left shoulder (Acute 09/16/17) Left flank pain (Acute) a. After ureteral stent removal. Menopause (Chronic) Smoker (Chronic) a. Half pack a day. Medical History GERD (gastroesophageal reflux disease) Left ureteral stone Mild intermittent reactive airway disease (07/08/15) flovent 07/2013, intol albuterol (escobar), post infection Nephrolithiasis Right ureteral stone (04/07/16) Surgical History H/O breast augmentation History of section Social History Smoking/Tobacco Use Status: Current-Occasional Tobacco Type: cigarettes Smoking risk assessment performed?: Yes Alcohol Intake: current Alcohol Intake frequency: a few times a week Alcohol type: wine Drug use: Never Substance use type: does not use Number of Children: 2 current occupation: works at [employer] What type of physical activity do you participate in: none Seatbelt use: always 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 She does not appear septic or toxic Her vital signs are documented elsewhere Her abdomen is soft with no mass. There is no peritoneal signs She is awake and alert. I reviewed yesterday's CT scan and today's renal ultrasound. The dilation seen on yesterday's CT has decreased dramatically on today's ultrasound. Results Last Vital Signs Temp 36.9 C 08/08/22 08:17 Pulse 69 04/05/22 08:17 Resp 16 04/05/22 08:17 BP 125/81 04/05/22 08:17 Pulse Ox 92 04/05/22 08:17 Labs Result diagrams: 04/05/22 06:00 04/05/22 07:05 Labs: Laboratory Results - last 24 hr 04/04/22 04/04/22 04/05/22 10:23 10:23 06:00 WBC RBC Hgb Hct MCV MCH MCHC RDW Plt Count MPV Immature Gran % Neutrophils % Lymphocytes % Monocytes % Eosinophils % Basophils % Nucleated RBC % Absolute Neutrophils Absolute Lymphocytes Absolute Monocytes Absolute Eosinophils Absolute Basophils ESR 20 Sodium Cancelled Potassium Cancelled Chloride Cancelled Carbon Dioxide Cancelled Anion Gap Cancelled BUN Cancelled Creatinine Cancelled Estimated GFR/1.73 m2 Cancelled Glucose Cancelled Calcium Cancelled Magnesium Cancelled Total Bilirubin Cancelled AST Cancelled ALT Cancelled Alkaline Phosphatase Cancelled Total Protein Cancelled Albumin Cancelled Procalcitonin 0.2 04/05/22 04/05/22 06:00 07:05 WBC 5.72 RBC 5.13 Hgb 13.7 Hct 43.0 MCV 84 MCH 26.7 L MCHC 31.9 L RDW 13.1 Plt Count 164 MPV 10.3 Immature Gran % 0.5 Neutrophils % 63.1 Lymphocytes % 24.0 Monocytes % 6.3 Eosinophils % 5.1 Basophils % 1.0 Nucleated RBC % 0.0 Absolute Neutrophils 3.61 Absolute Lymphocytes 1.37 Absolute Monocytes 0.36 Absolute Eosinophils 0.29 Absolute Basophils 0.06 ESR Sodium 141 Potassium 4.1 Chloride 108 H Carbon Dioxide 27.4 Anion Gap 5.6 BUN 14 Creatinine 0.5 L Estimated GFR/1.73 m2 >= 60.00 Glucose 92 Calcium 8.6 Magnesium 2.0 Total Bilirubin 0.7 AST 43 H ALT 72 H Alkaline Phosphatase 98 Total Protein 6.4 Albumin 3.1 L Procalcitonin
[2022-04-05 20:01] VITALS: BP 136/72; PULSE 64; RESP 19; TEMP 36.7; O2SAT 94
[2022-04-06 03:30] VITALS: BP 109/69; PULSE 63; RESP 18; TEMP 36.6; O2SAT 93
--- NOTE | 2022-04-06 07:28 | DSE_ITS ---
Date of service: 04/06/22 Time of Service: 07:28 DS: Diagnosis Discharge Diagnosis (1) Left flank pain: Status: Acute Discharge Plan Disposition Patient Disposition: HOME Condition: Stable Discharge Details Reason For Visit: Pyelonephritis Admit Date/Time: 04/04/22 12:02 Admit Provider: Yonny Rangel Attending Provider: Yonny Rangel Primary Care Provider: Neela Orantes Hospital Course Hospital Course: The patient was admitted about 48 hours after her ureteral stents on the left side were removed. There was hydronephrosis and hydroureter down to the distal ureter as seen on CT scan. No stones were seen. We suspected the hydronephrosis and hydroureter were from edema and we treated her conservatively without replacement of the stent. Over the next 24 hours, her symptoms improved fairly dramatically. She has had minimal pain over the last 24 hours. She no longer has nausea or vomiting. A follow-up renal ultrasound showed minimal hydronephrosis. The patient had an abnormal urinalysis on admission. She did not have an elevated white blood count or fever, so again we did not place a ureteral stent. She was treated with antibiotics. Her ultimate urine culture is growing low colonies of gram-positive nickolas and gram-negative rods. Home Meds and New Rx's Prescriptions: No Action lorazepam 0.5 mg tablet 0.5 mg PO DAILY PRN (Reason: anxiety) Qty: 14 2RF famotidine 20 mg tablet 20 mg PO DAILY Qty: 90 0RF fluticasone propionate [Flovent HFA] 110 mcg/actuation HFA aerosol inhaler 220 mcg Inhalation BID Qty: 3 3RF Rx Instructions: 2 puffs bid; rinse mouth after use; DISPENSE WITH A SPACER yearly albuterol sulfate 90 mcg/actuation HFA aerosol inhaler 2 puff Inhalation Q4H PRN Qty: 1 12RF Rx Instructions: with SPACER for reactive airway, wheezing ketorolac 10 mg tablet 10 mg PO Q8H PRN (Reason: pain) Qty: 15 0RF phenazopyridine [Pyridium] 200 mg tablet 200 mg PO TID MDD 3 PRN Discharge Instructions Activity:: Activity as Tolerated Equipment/Supplies:: No Equipment Needed Diet:: As Tolerated Discharge Orders Discharge Orders: Discharge Order (Routine); Ordered 04/06/22 Ordered By: Renato Samayoa Discharge Data Discharge Comment: please double check with hospitalists to make sure DS: Summary Time Spent with Patient providing and/or coordinating discharge services: Less than 30 minutes Status at Discharge Functional status at discharge: independent ambulation Overall status at discharge: patient is progressing back to baseline Mental Status: mental status grossly normal Speech and Movement: speech and movement normal Mood: congruent mood Affect: normal affect Exam Narrative Exam Narrative: At the time of discharge, she is sitting by the bedside. She looks comfortable. Her vital signs are documented elsewhere Her lungs are clear Cardiac exam shows a regular rate and rhythm She is awake and alert Psych Mental Status: mental status grossly normal Speech and Movement: speech and movement normal Mood: congruent mood Affect: normal affect DS: Data Vitals/I&O Vitals and I&O: Vital Signs Temperature 36.6 C 04/06/22 03:30 Temperature Source Tympanic 04/06/22 03:30 Pulse 63 04/06/22 03:30 Pulse Rhythm Regular 04/06/22 03:01 Respiratory Rate 18 04/06/22 03:30 Respiratory Effort Non-Labored 04/06/22 03:01 Respiratory Depth Normal 04/06/22 03:01 Respiratory Pattern Normal 04/06/22 03:01 Blood Pressure 109/69 04/06/22 03:30 Blood Pressure Position Sitting 04/04/22 09:53 Pulse Oximetry 93 04/06/22 03:30 Oxygen Delivery Method Room Air 04/06/22 03:30 Oxygen Flow Rate 0 04/06/22 03:30 Pain Level 0 04/06/22 03:30 Intake & Output 04/05/22 04/05/22 04/06/22 11:59 23:59 11:59 Intake Total 600 / 1000 400 / 1000 110 / 110 Output Total 1600 / 1800 200 / 1800 300 / 300 Balance -1000 / -800 200 / -800 -190 / -190 Weight 61.4 kg Intake: IV 60 / 60 10 / 10 Oral 600 / 940 340 / 940 100 / 100 Output: Urine 1600 / 1800 200 / 1800 300 / 300 Other: Urine Color Brown Mercado Brown Dark Red Urine Appearance Hematuria Sediment Sediment Hematuria Clots Urine Odor Normal Normal Strain Urine Result Negative-No Stones/Gravel Negative-No Stones/Gravel Negative-No Stones/Gravel Comment no evidence of clots after urine was strained Voiding Methods Toilet Toilet Toilet Data Completed and Pending Labs on day of discharge: Labs from last 24 hours 04/05/22 07:05 Sodium 141 Potassium 4.1 Chloride 108 H Carbon Dioxide 27.4 Anion Gap 5.6 BUN 14 Creatinine 0.5 L Estimated GFR/1.73 m2 >= 60.00 Glucose 92 Calcium 8.6 Magnesium 2.0 Total Bilirubin 0.7 AST 43 H ALT 72 H Alkaline Phosphatase 98 Total Protein 6.4 Albumin 3.1 L Preliminary micro results at discharge 04/04/22 10:05 Urine Culture - Preliminary Urine - Reflex from Ua Gram Positive Nickolas Gram Negative Emmanuel PFSH All Active Problems Left flank pain (Acute) UTI (urinary tract infection) (Acute) Hydronephrosis (Acute) Hyperlipidemia (Acute) Abnormal EKG (Acute) GERD (gastroesophageal reflux disease) (Chronic) Screening for cholesterol level (Acute) Joint pain (Acute) Trochanteric bursitis of left hip (Acute 05/22/15) Sciatica (Acute 03/08/11) WITH LEFT WEAKNESS Patellar tendinitis of left knee (Acute 05/22/15) Knee pain, left anterior (Acute 04/29/15) Arthralgia of left acromioclavicular joint (Acute 10/14/17) Adhesive capsulitis of left shoulder (Acute 09/16/17) Left flank pain (Acute) a. After ureteral stent removal. Menopause (Chronic) Smoker (Chronic) a. Half pack a day. Medical History GERD (gastroesophageal reflux disease) Left ureteral stone Mild intermittent reactive airway disease (07/08/15) flovent 07/2013, intol albuterol (escobar), post infection Nephrolithiasis Right ureteral stone (04/07/16) Surgical History H/O breast augmentation History of section Social History Smoking/Tobacco Use Status: Current-Occasional Tobacco Type: cigarettes Smoking risk assessment performed?: Yes Alcohol Intake: current Alcohol Intake frequency: a few times a week Alcohol type: wine Drug use: Never Substance use type: does not use Number of Children: 2 current occupation: works at [employer] What type of physical activity do you participate in: none Seatbelt use: always 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
--- NOTE | 2022-04-06 07:37 | W.PM.PROGNOT ---
Date of Service Date of service: 04/06/22 Time of Service: 07:37 Assessment and Plan Assessment and plan (1) Left flank pain: Status: Acute (2) UTI (urinary tract infection): Status: Acute Assessment and plan: She has responded to conservative management with no need for surgical intervention. This is what we would expect from postprocedural edema. I think she is safe for discharge. She tells me that she has a 5-day supply of Cipro at home, so I will ask her to ask complete the 5-day course. She does have some oral ketorolac at home and she can use the ketorolac and Tylenol as needed for any residual pain. I would expect the hematuria to resolve within the next week. The hematuria is likely related to both the instrumentation and her UTI. Subjective Subjective Interval history since last seen: She is not required pain medications overnight and she feels quite well. She has no fevers. She has no nausea. She is still seeing gross blood in urine Exam Narrative Exam Narrative: Looks comfortable Her vital signs are documented elsewhere She is awake and alert Objective Last Vital Signs Temp 36.6 C 04/06/22 03:30 Pulse 63 04/06/22 03:30 Resp 18 04/06/22 03:30 BP 109/69 04/06/22 03:30 Pulse Ox 93 04/06/22 03:30 PAWSS Have you Been Recently Intoxicated or Drunk Within the Last 30 days?: No Have you Ever Experienced Previous Episodes of Alcohol Withdrawal?: No Have you ever Experienced Withdrawal Seizures?: No Have you ever Experienced Delirium Tremens(DT)s?: No Have you ever undergone Alcohol Rehabilitation Treatment (i.e, inpt ot outpatient treatment programs)?: No Have you ever Experienced Blackouts?: No Have you ever Combined Alcohol with other Downers within the last 90 days?: No Have you ever Combined Alcohol with any other Substance of Abuse during the last 90 days?: No Positive Blood Alcohol level on Presentation? [PCS.BAL]: No Evidence of Increased Autonomic Activity (i.e. HR>120, tremor, sweating, agitation, nausea)?: No Result: 0
[2022-04-06] MEDS: Famotidine 20 MG TAB PO (07:44)
[2022-04-06 07:52] VITALS: BP 103/65; PULSE 67; RESP 18; TEMP 37.1; O2SAT 97
--- NOTE | 2022-04-06 09:30 | PDOC.CMDIS ---
- If Service Date Differs Date of service: 04/06/22 Time of Service: 09:30 LACE Index Scoring Tool - Questions: Length of Stay (in days): 2 Acuity (Admit via E.D.?): Yes E.D. Visits: 2 - Answers: Total Score: 7 Risk of Readmission: Low Risk Care Management Discharge Reason for Hospitalization: Nephrolithiasis Discharge Plan: Padma will discharge home via private vehicle with family. She will follow up with her community providers and discharge plan of care as prescribed. Patient/Family Education Needs: Review discharge instructions, limitations, medications and plan to follow up with community providers. ask me three.
== END 2022-04-06 08:36 | disposition home or self-care (01) ==
LOC: ER 12:43 → MS 04-05 11:19
PROVIDERS: Admitting Provider Internal Medicine; Emergency Provider Physician Assistant; PCP Nurse Practitioner; Visit Provider Internal Medicine
DX: N13.39 Other hydronephrosis (principal); Q62.5 Duplication of ureter; N20.0 Calculus of kidney; Z20.822 Contact with and (suspected) exposure to COVID-19; E78.5 Hyperlipidemia, unspecified; R94.31 Abnormal electrocardiogram [ECG] [EKG]; K21.9 Gastro-esophageal reflux disease without esophagitis; F17.210 Nicotine dependence, cigarettes, uncomplicated; J45.20 Mild intermittent asthma, uncomplicated; R30.0 Dysuria; R10.32 Left lower quadrant pain
CPT/HCPCS: 36415; 76770; 80053; 84145; 85652; 87635; 96361; 96365; 96372; 96374; 96375; 96376; 99284; 99285; J1650; 74176; 81003; 81015; 83735; 85025; 86140; 87086; 99219; 99224; G0378; J0696; J1885; J3010; J3490

== ENCOUNTER 2022-07-19 15:21 | Outpatient (REF) | payer OTHER, SELFPAY | END 2022-07-19 15:22 | disposition home or self-care (01) | LOC: LBN 15:21 | PROVIDERS: PCP Nurse Practitioner; Visit Provider Nurse Practitioner | DX: R10.31 Right lower quadrant pain (principal); R82.998 Other abnormal findings in urine; Z87.442 Personal history of urinary calculi | CPT/HCPCS: 87086 ==

== ENCOUNTER 2022-08-03 13:19 | Outpatient (REF) | payer OTHER, SELFPAY | END 2022-08-03 13:20 | disposition home or self-care (01) | LOC: LBN 13:19 | PROVIDERS: PCP Nurse Practitioner; Visit Provider Nurse Practitioner | DX: R31.9 Hematuria, unspecified (principal) | CPT/HCPCS: 87086 ==

== ENCOUNTER 2022-08-04 06:57 | Emergency (ER) | payer OTHER, SELFPAY ==
[2022-08-04 07:02] VITALS: BP 159/101; PULSE 93; RESP 18; TEMP 36.8; O2SAT 98
--- NOTE | 2022-08-04 07:15 | DI.CT_ITS ---
Exam(s) CT RENAL COLIC WO EXAM: CT RENAL COLIC WO INDICATION: right flank pain, r/o stone. COMPARISON: CT CT ABDOMEN PELVIS WO from 07/19/2022 TECHNIQUE: CT examination was performed without contrast administration. FINDINGS: Images obtained through the lung bases are unremarkable. Visualized portions of the liver and splee n appear intact. Visualized portions of the pancreas are unremarkable. Gallbladder and bile ducts are CT normal. Abdominal aorta is of normal diameter. No significant abdominal wall hernia. No significant abdominal or pelvic adenopathy. Adrenals appear normal bilaterally. The kidneys are normal in size and shape. There are multiple small nonobstructing left renal calculi . There is duplicated left collecting system andleft ureter which extends to the distal ureter. On the right, there is a nonobstructing lower pole renal calculus. There is mild right hydronephrosis a nd hydroureter to the level of the distal ureter where there is a 2 millimeter in diameter obstructin g calculus. Urinary bladder is nearly empty . IMPRESSION: Bilateral nonobstructing nephrolithiasis. Obstructing distal right ureteral calculus, 2 millimeters in diameter. 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 RADIATION DOSE DELIVERED: 674.41mGy.cm DLP 674.41mGy.cm Total DLP DATA REPOSITORY: All CT scans at this facility are submitted to the National Radiology Data Registry (NRDR) Dose Index Registry (DIR) with the [employer] ([employer]). RADIATION OPTIMIZATION: All CT scans at this facility use at least one of these dose optimization te chniques: automated exposure control; mA and/or kV adjustment per patient size (includes targeted exa ms where dose is matched to clinical indication); or iterative reconstruction.
--- NOTE | 2022-08-04 07:22 | W.ED.GENAD ---
Discharge Plan Discharge Details Chief Complaint: FlankPain Primary Care Provider: Neela Orantes ED Provider: Kendall Camara Home Meds and New Rx's Prescriptions: No Action lorazepam 0.5 mg tablet 0.5 mg PO DAILY PRN (Reason: anxiety) Qty: 14 2RF fluticasone propionate [Flovent HFA] 110 mcg/actuation HFA aerosol inhaler 220 mcg Inhalation BID Qty: 3 3RF Rx Instructions: 2 puffs bid; rinse mouth after use; DISPENSE WITH A SPACER yearly albuterol sulfate 90 mcg/actuation HFA aerosol inhaler 2 puff Inhalation Q4H PRN Qty: 1 12RF Rx Instructions: with SPACER for reactive airway, wheezing famotidine 20 mg tablet 20 mg PO DAILY Qty: 90 0RF omeprazole 20 mg capsule,delayed release(DR/EC) 20 mg PO DAILY Qty: 90 0RF phenazopyridine [Pyridium] 200 mg tablet 200 mg PO TID MDD 3 PRN (Reason: pain) Qty: 6 3RF ciprofloxacin HCl [Cipro] 500 mg tablet 500 mg PO BID Qty: 10 0RF Medical Decision Making This is a 62-year-old female with a past medical history of kidney stones, recurrent urinary tract infections, positional vertigo, reflux, who presents today for evaluation of right flank pain. Patient states that for the last month she has had generalized right flank pain, urinalysis has been positive for infection about 2 to 3 weeks ago, she had a course of Cipro which resolved the infection, however pain continued she had a CT scan 2 to 3 weeks ago which was negative for stone in the ureters, but she did have stones in the renal pelvis ease. Last night the pain notably worsened and she developed hematuria with small blood clots. She does have an appointment with urology later today but the pain was too much this morning. She denies any other complaints. No fever or chills, no vomiting or diarrhea. No other modifying factors. Exam demonstrates patient in mild to moderate discomfort. Notable right CVA tenderness. No significant abdominal pain otherwise. Differential is highest for kidney stone, however he infection is also on the differential but less likely. Patient is requesting small fluid greater than Tylenol and Motrin for pain, however she also states that she is extremely sensitive to narcotics and wants to be very cautious if she does receive any. She states that she has done well with a small dose of fentanyl in fluids with slow push. We will do this, evaluate for concerning etiologies, monitor closely and reassess. Patient will be signed out to my colleague Dr. Momin for follow-up on labs and imaging. Sign Out No HPI General Date/Time Provider Initiated Documentation: 08/04/22 07:06. HPI Narrative: This is a 62-year-old female with a past medical history of kidney stones, recurrent urinary tract infections, positional vertigo, reflux, who presents today for evaluation of right flank pain. Patient states that for the last month she has had generalized right flank pain, urinalysis has been positive for infection about 2 to 3 weeks ago, she had a course of Cipro which resolved the infection, however pain continued she had a CT scan 2 to 3 weeks ago which was negative for stone in the ureters, but she did have stones in the renal pelvis ease. Last night the pain notably worsened and she developed hematuria with small blood clots. She does have an appointment with urology later today but the pain was too much this morning. She denies any other complaints. No fever or chills, no vomiting or diarrhea. No other modifying factors. Related Data Home Medications Medication Instructions Recorded Confirmed albuterol sulfate 90 mcg/actuation 2 puff inhalation Q4H PRN #1 unit 04/13/21 05/11/22 aerosol inhaler fluticasone propionate 110 220 mcg inhalation BID ##3 04/13/21 05/11/22 mcg/actuation HFA aerosol inhaler (Flovent HFA) lorazepam 0.5 mg tablet 0.5 mg PO DAILY PRN anxiety #14 09/24/21 05/11/22 tabs famotidine 20 mg tablet 20 mg PO DAILY #90 tabs 07/06/22 omeprazole 20 mg capsule,delayed 20 mg PO DAILY #90 caps 07/06/22 release phenazopyridine 200 mg tablet 200 mg PO TID PRN pain #6 tabs 07/08/22 (Pyridium) ciprofloxacin HCl 500 mg tablet 500 mg PO BID #10 tabs 07/19/22 (Cipro) Previous Rx's Medication Instructions Recorded albuterol sulfate 90 mcg/actuation 2 puff inhalation Q4H PRN #1 unit 04/13/21 aerosol inhaler fluticasone propionate 110 220 mcg inhalation BID ##3 04/13/21 mcg/actuation HFA aerosol inhaler (Flovent HFA) lorazepam 0.5 mg tablet 0.5 mg PO DAILY PRN anxiety #14 09/24/21 tabs famotidine 20 mg tablet 20 mg PO DAILY #90 tabs 07/06/22 omeprazole 20 mg capsule,delayed 20 mg PO DAILY #90 caps 07/06/22 release phenazopyridine 200 mg tablet 200 mg PO TID PRN pain #6 tabs 07/08/22 (Pyridium) ciprofloxacin HCl 500 mg tablet 500 mg PO BID #10 tabs 07/19/22 (Cipro) Allergies Allergy/AdvReac Type Severity Reaction Status Date / Time Sulfa (Sulfonamide Allergy Unknown Rash Verified 04/01/22 06:12 Antibiotics) morphine AdvReac Severe Psychosis Verified 04/01/22 06:12 codeine AdvReac Intermediate jittery Verified 04/01/22 06:12 General Stated Complaint: FlankPain KLARISSA: 3 Review of Systems All systems reviewed & are unremarkable except as noted in HPI and below PFSH All Active Problems UTI (urinary tract infection) (Acute) Hyperlipidemia (Acute) Abnormal EKG (Acute) GERD (gastroesophageal reflux disease) (Chronic) Screening for cholesterol level (Acute) Joint pain (Acute) Trochanteric bursitis of left hip (Acute 05/22/15) Sciatica (Acute 03/08/11) WITH LEFT WEAKNESS Patellar tendinitis of left knee (Acute 05/22/15) Knee pain, left anterior (Acute 04/29/15) Arthralgia of left acromioclavicular joint (Acute 10/14/17) Adhesive capsulitis of left shoulder (Acute 09/16/17) Menopause (Chronic) Smoker (Chronic) a. Half pack a day. Medical History GERD (gastroesophageal reflux disease) Left ureteral stone Mild intermittent reactive airway disease (07/08/15) flovent 07/2013, intol albuterol (escobar), post infection Nephrolithiasis Right ureteral stone (04/07/16) Surgical History H/O breast augmentation History of section Social History (Reviewed 08/04/22 @ 07:29 by KIARA Hyde Smoking/Tobacco Use Status: Current-Occasional Tobacco Type: cigarettes Smoking risk assessment performed?: Yes Alcohol Intake: current Alcohol Intake frequency: a few times a week Alcohol type: wine Drug use: Never Substance use type: does not use Number of Children: 2 current occupation: works at [employer] What type of physical activity do you participate in: none Seatbelt use: always Drive intox or ride w/intox hazmat 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 3.ENT: Atraumatic external nose and ears. Moist MM. Neck: Symmetric, trachea midline, No thyromegaly. 4.CVS: +S1/S2, No murmurs or gallops. Peripheral pulses 2+ and equal in all extremities. Brisk capillary refill in all extremities. 5.RESP: Unlabored respiratory effort. Clear to auscultation bilaterally. No wheezes rales or rhonchi 6.GI: Soft, Nontender/Nondistended, No hepatosplenomegaly. No guarding or rebound. Mild right-sided CVA tenderness. No left CVA tenderness. No inguinal hernia. 7.MSK: Normocephalic/Atraumatic, Extremities w/o deformity or ttp No cyanosis or clubbing, Normal movement of all extremities 8.Skin: Warm, Dry. No rashes or lesions. 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 Sensation grossly intact, no focal neurologic deficits. 10.Psych: (AAO) x3. Appropriate mood and affect Course Vital Signs Vital signs: Vital Signs Temperature 36.8 C 08/04/22 07:02 Pulse 93 H 08/04/22 07:02 Respiratory Rate 18 08/04/22 07:02 Blood Pressure 159/101 H 08/04/22 07:02 Pulse Oximetry 98 08/04/22 07:02 Temperature 36.8 C 08/04/22 07:02 Temperature Source Temporal Artery Scan 08/04/22 07:02 Pulse 93 H 08/04/22 07:02 Respiratory Rate 18 08/04/22 07:02 Blood Pressure 159/101 H 08/04/22 07:02 Blood Pressure Position Sitting 08/04/22 07:02 Pulse Oximetry 98 08/04/22 07:02 Oxygen Delivery Method Room Air 08/04/22 07:02 Oxygen Flow Rate 0 08/04/22 07:02 Pain Level 8 08/04/22 07:02
[2022-08-04 07:41] LABS: Abs Immature Grans 0.01 10^3/uL (0.0-0.06); Absolute Basophil Count 0.05 10^3/uL (0.0-0.2); Absolute Eosinophil Count 0.04 10^3/uL (0.0-0.7); Absolute Lymphocyte Count 0.95 10^3/uL (1.2-3.4); Absolute Monocyte Count 0.25 10^3/uL (0.1-0.8); Absolute Neutrophil Count 3.77 10^3/uL (1.2-6.7); Eosinophils % 0.8; HCT 45.3 % (36.0-46.0); HGB 14.7 g/dL (11.2-15.7); Immature Grans % 0.2; Lymphocytes % 18.7; MCHC 32.5 % (32.0-36.0); MCV 83 fL (80-95); MPV 9.6 fL (8.0-11.0); Monocytes % 4.9; Neutrophils % 74.4; Platelet Count 227 10^3/uL (130-400); RBC 5.45 10^6/uL (3.93-5.22); RDW 13.1 % (11.7-14.6); RDW-SD 39.5 fL; WBC 5.07 10^3/uL (4.4-10.8)
[2022-08-04 07:43] LABS: Bilirubin Negative (Negative); Blood Moderate (Negative); Clarity Clear (Clear); Glucose Negative (Negative); Ketones Negative (Negative); Leukocyte Esterase Negative (Negative); Nitrite Negative (Negative); Urobilinogen 0.2 EU/dL (Up TO 0.2); pH 6.5 (5-8)
[2022-08-04 07:53] LABS: Bacteria Negative HPF (Negative); C & S Indicated? No; Casts Negative LPF (Negative); Crystals Negative HPF (Negative); Epithelial Cells Rare HPF (Negative); Mucus Negative (Negative); WBC Negative HPF (0-5)
[2022-08-04] MEDS: Normal Saline 1,000 ML 1000 ML IV (07:56)
[2022-08-04] MEDS: ACETAMINOPHEN 1,000 MG/100 ML BTL 400 MG IVPB (07:57)
[2022-08-04] MEDS: Ketorolac 15 MG/ML VIAL IVP (07:57)
[2022-08-04 07:58] LABS: ALT 32 U/L (14-59); AST 20 U/L (15-37); Albumin 4.1 g/dL (3.4-5.0); Alkaline Phosphatase 100 U/L (46-116); Anion Gap 11.1 mmol/L (3-11); BUN 18 mg/dL (7-18); Bilirubin, Total 0.5 mg/dL (0.2-1.0); CO2 24.9 mmol/L (21.0-32.0); CREATININE 0.7 mg/dL (0.55-1.02); Calcium 9.2 mg/dL (8.5-10.1); Chloride 107 mmol/L (98-107); Estimated GFR 97.72 (mL/min/1.73m2); Glucose 108 mg/dL (74-106); Potassium 3.9 mmol/L (3.5-5.1); Sodium 143 mmol/L (136-145); Total Protein 7.4 g/dL (6.4-8.2)
[2022-08-04 08:00] VITALS: BP 146/87; PULSE 78; RESP 18; O2SAT 98
[2022-08-04] MEDS: fentaNYL 100 MCG/2 ML VIAL 25 MCG IVP (08:08)
--- NOTE | 2022-08-04 08:15 | NUR.NOTE ---
Nursing Note: PT REPORTS PAIN UNDER CONTROL AT THIS TIME WITH MEDS, PT DOES NOT LIKE THE FEELING OF THE NARCOTICS. PT NOW TO DI FOR ORDERED EXAMS, CONT. TO MONITOR.
--- NOTE | 2022-08-04 11:01 | W.EDPROG ---
Date of service: 08/04/22 Time of Service: 11:06 Medical Decision Making Care was signed out by Dr. Camara plan to follow-up on imaging. CT of the abdomen pelvis was interpreted by radiology: Obstructing right distal ureteral stone 2 mm. Patient reassessed and stable. I will initiate treatment with Flomax. I called and spoke with the urology team who have an appointment to see the patient today and recommend keeping this appointment. Usual customary discharge instructions were reviewed with the patient. Lab Data Lab results reviewed: Yes I reviewed the patient's lab results. Labs: Laboratory Tests Range/Units 08/04/22 08/04/22 08/04/22 07:03 07:30 07:30 WBC (4.4-10.8) 10^3/uL 5.07 RBC (3.93-5.22) 10^6/uL 5.45 H Hgb (11.2-15.7) g/dL 14.7 Hct (36.0-46.0) % 45.3 MCV (80-95) fL 83 MCH (27.0-33.0) pg 27.0 MCHC (32.0-36.0) % 32.5 RDW (11.7-14.6) % 13.1 Plt Count (130-400) 10^3/uL 227 MPV (8.0-11.0) fL 9.6 Immature Gran % 0.2 Neutrophils % 74.4 Lymphocytes % 18.7 Monocytes % 4.9 Eosinophils % 0.8 Basophils % 1.0 Nucleated RBC % (0.0-0.3) % 0.0 Absolute Neutrophils (1.2-6.7) 10^3/uL 3.77 Absolute Lymphocytes (1.2-3.4) 10^3/uL 0.95 L Absolute Monocytes (0.1-0.8) 10^3/uL 0.25 Absolute Eosinophils (0.0-0.7) 10^3/uL 0.04 Absolute Basophils (0.0-0.2) 10^3/uL 0.05 Sodium (136-145) mmol/L 143 Potassium (3.5-5.1) mmol/L 3.9 Chloride (98-107) mmol/L 107 Carbon Dioxide (21.0-32.0) mmol/L 24.9 Anion Gap (3-11) mmol/L 11.1 H BUN (7-18) mg/dL 18 Creatinine (0.55-1.02) mg/dL 0.7 Est GFR (CKD-EPI 2020) (mL/min/1.73m2) 97.72 Glucose (74-106) mg/dL 108 H Calcium (8.5-10.1) mg/dL 9.2 Total Bilirubin (0.2-1.0) mg/dL 0.5 AST (15-37) U/L 20 ALT (14-59) U/L 32 Alkaline Phosphatase (46-116) U/L 100 Total Protein (6.4-8.2) g/dL 7.4 Albumin (3.4-5.0) g/dL 4.1 Urine Color (Yellow) Straw Urine Clarity (Clear) Clear Urine pH (5-8) 6.5 Ur Specific [place] (1.005-1.025) 1.010 Urine Protein (Negative) mg/dL Negative Urine Ketones (Negative) mg/dL Negative Urine Blood (Negative) Moderate H Urine Nitrite (Negative) Negative Urine Bilirubin (Negative) Negative Urine Urobilinogen (Up TO 0.2) EU/dL 0.2 Ur Leukocyte Esterase (Negative) Negative Urine RBC (0-2) HPF 10-20 H Urine WBC (0-5) HPF Negative Ur Epithelial Cells (Negative) HPF Rare Urine Crystals (Negative) HPF Negative Urine Bacteria (Negative) HPF Negative Urine Casts (Negative) LPF Negative Urine Mucus (Negative) Negative Ur Culture Indicated? No Urine Glucose (Negative) mg/dL Negative Sign Out No Discharge Plan Disposition Patient Disposition: Home Condition: Stable Discharge Details Clinical Impression: Ureterolithiasis Primary Care Provider: Neela Orantes ED Provider: Kendall Camara Home Meds and New Rx's Prescriptions: New tamsulosin [Flomax] 0.4 mg capsule 0.4 mg PO DAILY Qty: 14 0RF Continued fluticasone propionate [Flovent HFA] 110 mcg/actuation HFA aerosol inhaler 220 mcg Inhalation BID Qty: 3 3RF Rx Instructions: 2 puffs bid; rinse mouth after use; DISPENSE WITH A SPACER yearly albuterol sulfate 90 mcg/actuation HFA aerosol inhaler 2 puff Inhalation Q4H PRN Qty: 1 12RF Rx Instructions: with SPACER for reactive airway, wheezing famotidine 20 mg tablet 20 mg PO DAILY Qty: 90 0RF omeprazole 20 mg capsule,delayed release(DR/EC) 20 mg PO DAILY Qty: 90 0RF phenazopyridine [Pyridium] 200 mg tablet 200 mg PO TID MDD 3 PRN (Reason: pain) Qty: 6 3RF No Action lorazepam 0.5 mg tablet 0.5 mg PO Q8H PRN (Reason: anxiety) Qty: 14 2RF ketorolac 10 mg tablet 10 mg PO Q6H PRN (Reason: pain) Qty: 15 0RF tramadol 50 mg tablet 100 mg PO Q6H Qty: 20 0RF Rx Instructions: take 2 tabs every 6 hours for 24 hours then 1 to 2 tabs every 6 hours as needed for pain Discharge Instructions Instructions: Ureteral Stones (ED) Additional Instructions: Please contact your primary care physician to arrange follow-up. Please followup with urology as scheduled today. Return to the ER immediately for any worsening or new concerning symptoms. Referrals: [facility] [Provider Group] Discharge Data Discharge Date/Time-TO BE ENTERED AT DEPARTURE: 08/04/22 11:15
[2022-08-04] MEDS: Tamsulosin 0.4 MG CAPCR PO (11:03)
[2022-08-04 11:05] VITALS: BP 114/77; PULSE 83; RESP 16; O2SAT 99
[2022-08-04 11:08] VITALS: BP 114/77; PULSE 83; RESP 16; O2SAT 99
== END 2022-08-04 11:15 | disposition home or self-care (01) ==
PROVIDERS: Emergency Provider Student in an Organized Health Care Education/Training Program; PCP Nurse Practitioner
DX: N20.1 Calculus of ureter (principal); J45.909 Unspecified asthma, uncomplicated; Z87.442 Personal history of urinary calculi; Z87.440 Personal history of urinary (tract) infections
CPT/HCPCS: 36415; 80053; 96361; 96365; 96375; 99284; 74176; 81003; 81015; 85025; J0131; J1885; J3010

== ENCOUNTER 2022-08-05 11:17 | Observation (INO) | payer OTHER, SELFPAY ==
[2022-08-05] VITALS (8 sets, daily range): BP systolic 115–166; BP diastolic 60–91; PULSE 72–90; RESP 16–18; TEMP 36–36.4; O2SAT 93–98; BMI 22.9
--- NOTE | 2022-08-05 07:09 | ANES.PREOP_ITS ---
General Info Date of Service Date Performed: 08/05/22 Height: 5 ft 5 in Weight: 62.596 kg Body Mass Index (BMI): 22.9 Surgical Procedure: Operation Date: 08/05/22 13:10 Proposed Procedure Side Surgeon p Cystoscopy/Possible Laser/Retrograde/Ureteroscopy Right Renaot Samayoa MD Meds Allergies and Home Medications Allergies Allergy/AdvReac Type Severity Reaction Status Date / Time Sulfa (Sulfonamide Allergy Unknown Rash Verified 08/05/22 11:38 Antibiotics) morphine AdvReac Severe Psychosis Verified 08/05/22 11:38 codeine AdvReac Intermediate jittery Verified 08/05/22 11:38 Home Medication Medication Instructions Recorded albuterol sulfate 90 mcg/actuation 2 puff inhalation Q4H PRN #1 unit 04/13/21 aerosol inhaler fluticasone propionate 110 220 mcg inhalation BID ##3 04/13/21 mcg/actuation HFA aerosol inhaler (Flovent HFA) lorazepam 0.5 mg tablet 0.5 mg PO DAILY PRN anxiety #14 09/24/21 tabs famotidine 20 mg tablet 20 mg PO DAILY #90 tabs 07/06/22 omeprazole 20 mg capsule,delayed 20 mg PO DAILY #90 caps 07/06/22 release phenazopyridine 200 mg tablet 200 mg PO TID PRN pain #6 tabs 07/08/22 (Pyridium) ketorolac 10 mg tablet 1 tab PO TID 08/04/22 tamsulosin 0.4 mg capsule (Flomax) 0.4 mg PO DAILY #14 caps 08/04/22 Current Visit Medications: Current Medications Generic Name Dose Route Start Last Admin Trade Name Freq PRN Reason Stop Dose Admin Ringer's Solution 1,000 mls @ 80 mls/hr 08/05/22 06:00 IV 09/03/22 23:59 INFUSION HOWARD Cefazolin Sodium/Dextrose 2 gm in 50 mls @ 100 mls/hr 08/05/22 06:00 Ancef Duplex IVPB 08/05/22 16:00 PREOP HOWARD IV Miscellaneous Supplies 1 each 08/05/22 06:00 Iv Access IV 09/03/22 23:59 DIRECTED HOWARD Sodium Chloride 0 ml 08/05/22 06:00 Normal Saline Flush 10 Ml Syr IV 09/03/22 23:59 PRN PRN Sodium Chloride 0 ml 08/05/22 06:00 Normal Saline 10 Ml Vial IJ 09/03/22 23:59 DIRECTED PRN Sterile Water 0 ml 08/05/22 06:00 Water,Injection,Sterile 10 Ml Vial IJ 09/03/22 23:59 DIRECTED PRN PFSH Active Problems Active Problems: Problem Status Onset Code Menopause Z78.0 Smoker F17.200 Adhesive capsulitis of left shoulder 09/16/17 M75.02 Arthralgia of left acromioclavicular joint 10/14/17 M25.512 Knee pain, left anterior 04/29/15 M25.562 Patellar tendinitis of left knee 05/22/15 M76.52 Sciatica 03/08/11 M54.30 Trochanteric bursitis of left hip 05/22/15 M70.62 Joint pain M25.50 Screening for cholesterol level Z13.220 GERD (gastroesophageal reflux disease) K21.9 Acute epigastric pain R10.13 Abnormal EKG R94.31 Hyperlipidemia E78.5 UTI (urinary tract infection) N39.0 Ureterolithiasis N20.1 Medical History Medical History GERD (gastroesophageal reflux disease) Left ureteral stone Mild intermittent reactive airway disease (07/08/15) flovent 07/2013, intol albuterol (escobar), post infection Nephrolithiasis Right ureteral stone (04/07/16) Surgical History Surgical History H/O breast augmentation History of section Hx of cystoscopy 3x kidney stone removal Tobacco Smoking/Tobacco Use Status: Current-Occasional Tobacco Type: cigarettes Alcohol Alcohol Intake: current Alcohol intake frequency: a few times a week Alcohol type: wine Substance Use Substance use: Never Substance use type: does not use Vital Signs and Lab Results Vital Signs Most Recent Vital Signs in EMR: Temp Pulse Resp BP Pulse Ox 36.4 C L 72 16 138/91 H 97 08/05/22 11:42 08/05/22 11:42 08/05/22 11:42 08/05/22 11:42 08/05/22 11:42 Lab Results Blood Type / Crossmatch: No Data to Display Complete Blood Count: White Blood Count 5.07 10^3/uL (4.4-10.8) 08/04/22 07:30 Red Blood Count 5.45 10^6/uL (3.93-5.22) H 08/04/22 07:30 Hemoglobin 14.7 g/dL (11.2-15.7) 08/04/22 07:30 Hematocrit 45.3 % (36.0-46.0) 08/04/22 07:30 Platelet Count 227 10^3/uL (130-400) 08/04/22 07:30 Complete Metabolic Panel: Sodium 143 mmol/L (136-145) 08/04/22 07:30 Potassium 3.9 mmol/L (3.5-5.1) 08/04/22 07:30 Chloride 107 mmol/L (98-107) 08/04/22 07:30 Carbon Dioxide 24.9 mmol/L (21.0-32.0) 08/04/22 07:30 BUN 18 mg/dL (7-18) 08/04/22 07:30 Creatinine 0.7 mg/dL (0.55-1.02) 08/04/22 07:30 Est GFR (CKD-EPI 2020) 97.72 (mL/min/1.73m2) 08/04/22 07:30 Calcium 9.2 mg/dL (8.5-10.1) 08/04/22 07:30 Albumin 4.1 g/dL (3.4-5.0) 08/04/22 07:30 Glucose 108 mg/dL (74-106) H 08/04/22 07:30 Liver Function Panel: Alanine Aminotransferase (ALT/SGPT) 32 U/L (14-59) 08/04/22 07: 30 Aspartate Amino Transf (AST/SGOT) 20 U/L (15-37) 08/04/22 07:30 Coagulation Panel: No Data to Display Cardiac Panel: No Data to Display Arterial Blood Gas: No Data to Display Venous Blood Gas: No Data to Display Pancreas Panel: No Data to Display Thyroid Panel: No Data to Display Infectious Disease: Coronavirus 2019 Source Nasal/Nares 08/05/22 11:40 Blood Cultures: No Data to Display Toxicology Panel: No Data to Display Imaging and Studies Imaging and Studies Study information below may be from another EMR and interpreted by another provider. Please see original notes in EMR for more complete details. EKG Summary: Conclusion Sinus rhythm...normal P axis, V-rate 60- 99 Probable left atrial enlargement...P >50mS, <-0.10mV V1 09/10/21 Stress Test Summary: Stress ECG Conclusion 1. The resting electrocardiogram showed left ventricular hypertrophy with repolarization abnormalities 2. Patient exercised on the Willy protocol and completed a workload of 7.2 METS 3. Normal heart rate and blood pressure response to exercise. The patient achieved 100% of predicted heart rate for age 4. There was no electrocardiographic evidence of myocardial ischemia with exercise 5. Rare PVCs were noted Benitez Treadmill Score is 5.5 which is Low risk. 10/15/21 Echocardiogram Summary: Conclusion Left Ventricle : The left ventricle is normal size. The left ventricular ejection fraction is within the normal range. There is normal left ventricular wall thickness. There is normal LV segmental wall motion. The left ventricular diastolic function is normal. LVEF is 59%. Right Ventricle : Right ventricle is grossly normal in size. Right ventricular systolic function is grossly normal. Atria : The left atrium size is normal. The right atrium size is normal. Tricuspid Valve : The tricuspid valve is normal in structure. Trace tricuspid regurgitation. Unable to assess PA pressure. There is no tricuspid valve stenosis. Please see remainder of findings for further details. 09/10/21 Anesthesia Assessment and Plan Anesthesia History Personal History: No History of Anesthesia Complications Family History: No Family History of Anesthesia Complications Exercise Tolerance Exercise Tolerance: Metabolic Equivalents>4 Cardiac & Pulmonary Exam Cardiac Exam: Normal S1/S2 Heart Sounds Pulmonary Exam: Clear Bilateral Breath Sounds Implantable Cardiac Device Does patient have a Pacemaker or an ICD?: No Airway Exam Known Difficult Airway: No Mallampati Class: 2 Mouth Opening: Normal (> 3cm) Thyromental Distance: Greater than 3 cm Neck Range of Motion: Full ROM Neck Circumference: Normal Teeth Condition: Normal Dentition ASA Classification ASA Score: ASA 2 Emergency Case?: No NPO Status NPO Status: NPO Clears >2 hours, Solids >8 hours Anesthesia Plan Resuscitation Status: Full Code Anesthesia Technique: General Anesthesia Airway Planned: Endotracheal Tube Monitors Used: Standard Monitors Preoperative Comments:: 62 yo female for cysto. Currently, in preop, very nervous for procedure and now very nervous about her just turing up COVID positive. Sig PMHx: GERD (iffy control, sleeps with multiple pillows due to it), smoker, RAD (well controlled, no recent issues, kidney stones, occ EtOH. Previous Anes: - cysto glide 3, RSI'd (bad GERD symptoms). midaz pre. - cysto LMA 4, MKO pre Plan: GAETT due to poorly conrolled GERD, preop sedation for anxiety.
[2022-08-05 11:48] LABS: Source Nasal/Nares
[2022-08-05] MEDS: Lactated Ringers 1,000 ML 80 ML IV (12:04)
--- NOTE | 2022-08-05 12:10 | W.PM.HP.N ---
Date of service: 08/05/22 Time of Service: 12:10 Assessment and Plan Assessment and plan (1) Ureterolithiasis: Status: Acute Assessment and plan: She has been symptomatic for over a month. She is interested in having a ureteroscopic stone manipulation. History of Present Illness History of Present Illness Chief Complaint: Right ureteral stone Narrative: This is a 62 year old woman who has a history of urolithiasis. She has had ureteroscopic stone manipulations in the past. Her stone analysis has been 90% calcium oxalate dihydrate and 10% calcium phosphate She has had right abdominal and groin pain for the past 6 weeks. She was found to have microscopic hematuria. A CT scan from a month ago was read as not having a ureteral stone. Her pain, nausea and vomiting escalated, so she came into the ED yesterday. Her CT confirmed a right distal ureteral stone. She has no fever or chills. She has no gross hematuria. Review of Systems Narrative: No fevers or chills No vision change or dysphasia No diabetes or thyroid No shortness of breath, cough or hemoptysis No chest pain or palpitations Hx GERD. No hepatitis, ulcers, jaundice No seizures, strokes or peripheral neuropathy No bleeding disorders or anemia No gout PFSH All Active Problems Menopause (Chronic) Smoker (Chronic) a. Half pack a day. Adhesive capsulitis of left shoulder (Acute 09/16/17) Arthralgia of left acromioclavicular joint (Acute 10/14/17) Knee pain, left anterior (Acute 04/29/15) Patellar tendinitis of left knee (Acute 05/22/15) Sciatica (Acute 03/08/11) WITH LEFT WEAKNESS Trochanteric bursitis of left hip (Acute 05/22/15) Joint pain (Acute) Screening for cholesterol level (Acute) GERD (gastroesophageal reflux disease) (Chronic) Abnormal EKG (Acute) Hyperlipidemia (Acute) UTI (urinary tract infection) (Acute) Ureterolithiasis (Acute) Medical History GERD (gastroesophageal reflux disease) Left ureteral stone Mild intermittent reactive airway disease (07/08/15) flovent 07/2013, intol albuterol (pedro luiskey), post infection Nephrolithiasis Right ureteral stone (04/07/16) Surgical History H/O breast augmentation History of section Hx of cystoscopy 3x kidney stone removal Social History Smoking/Tobacco Use Status: Current-Occasional Tobacco Type: cigarettes Smoking risk assessment performed?: Yes Alcohol Intake: current Alcohol Intake frequency: a few times a week Alcohol type: wine Drug use: Never Substance use type: does not use Number of Children: 2 current occupation: works at [employer] What type of physical activity do you participate in: none Seatbelt use: always Drive intox or ride 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 Working smoke detector in home: Yes Fire extinguisher in home: Yes Carbon monox detector in home: Yes Do you feel safe at home: Yes Do you feel safe in your relationship?: Yes Meds Allergies and Home Medications Allergies Allergy/AdvReac Type Severity Reaction Status Date / Time Sulfa (Sulfonamide Allergy Unknown Rash Verified 08/05/22 11:38 Antibiotics) morphine AdvReac Severe Psychosis Verified 08/05/22 11:38 codeine AdvReac Intermediate jittery Verified 08/05/22 11:38 Home Medications Medication Instructions Recorded Confirmed Type albuterol sulfate 90 mcg/actuation 2 puff inhalation Q4H PRN #1 unit 04/13/21 08/04/22 Rx aerosol inhaler fluticasone propionate 110 220 mcg inhalation BID ##3 04/13/21 08/04/22 Rx mcg/actuation HFA aerosol inhaler (Flovent HFA) lorazepam 0.5 mg tablet 0.5 mg PO DAILY PRN anxiety #14 09/24/21 08/04/22 Rx tabs famotidine 20 mg tablet 20 mg PO DAILY #90 tabs 07/06/22 08/04/22 Rx omeprazole 20 mg capsule,delayed 20 mg PO DAILY #90 caps 07/06/22 08/04/22 Rx release phenazopyridine 200 mg tablet 200 mg PO TID PRN pain #6 tabs 07/08/22 08/04/22 Rx (Pyridium) ketorolac 10 mg tablet 1 tab PO TID 08/04/22 08/04/22 History tamsulosin 0.4 mg capsule (Flomax) 0.4 mg PO DAILY #14 caps 08/04/22 08/04/22 Rx Exam Const General: cooperative Neck Neck: supple Resp Effort & Inspection: normal respiratory effort Auscultation: clear to auscultation bilaterally Cardio Rate: regular rate Rhythm: regular rhythm GI Palpation: soft and no masses Neuro General: patient alert, patient awake and patient oriented x3 Results Labs Labs: Laboratory Results - last 24 hr 08/05/22 11:40 COVID-19 Source Nasal/Nares Last Vital Signs Temp 36.4 C L 08/05/22 11:42 Pulse 72 08/05/22 11:42 Resp 16 08/05/22 11:42 BP 138/91 H 08/05/22 11:42 Pulse Ox 97 08/05/22 11:42
[2022-08-05 12:25] LABS: COVID-19 PCR POSITIVE (Negative)
[2022-08-05] MEDS: Midazolam/Ketamine/Ondansetron (3/25/2MG) 1 TAB 1 EACH SL (12:50)
[2022-08-05] MEDS: ceFAZolin 2 GM/50 ML BAG IVPB (13:03)
[2022-08-05] MEDS: Lidocaine 2% Jelly 6 ML SYR (13:24)
[2022-08-05] MEDS: Omnipaque 300 MG/ML 50 ML BTL (13:24)
--- NOTE | 2022-08-05 13:33 | DI.RAD_ITS ---
Exam(s) XR RETROGRADE IN OR EXAM: XR RETROGRADE IN OR CLINICAL HISTORY: Right ureteral stone TECHNIQUE: 2D and realtime digital imaging was performed. CONTRAST MATERIAL: Refer to procedure report. COMPARISON: CT CT RENAL COLIC WO from 08/04/2022 FINDINGS: Fluoroscopy was provided for Dr. Samayoa during the performance of a retrograde evaluation of the anitra l collecting system. Please refer to the procedure report for complete details. Ka,r=1.1 mGy IMPRESSION: RADIATION DOSE DELIVERED:
--- NOTE | 2022-08-05 13:38 | W.PM.DSUDISC ---
Date of service: 08/05/22 Time of Service: 13:38 Discharge Plan Disposition Patient Disposition: Home Condition: Good Discharge Details Reason For Visit: ureteral stone Admit Date/Time: 08/05/22 11:17 Admit Provider: Renato Samayoa Attending Provider: Renato Samayoa Primary Care Provider: Neela Orantes Home Meds and New Rx's Prescriptions: New tramadol 50 mg tablet 100 mg PO Q6H Qty: 20 0RF Rx Instructions: take 2 tabs every 6 hours for 24 hours then 1 to 2 tabs every 6 hours as needed for pain Continued fluticasone propionate [Flovent HFA] 110 mcg/actuation HFA aerosol inhaler 220 mcg Inhalation BID Qty: 3 3RF Rx Instructions: 2 puffs bid; rinse mouth after use; DISPENSE WITH A SPACER yearly albuterol sulfate 90 mcg/actuation HFA aerosol inhaler 2 puff Inhalation Q4H PRN Qty: 1 12RF Rx Instructions: with SPACER for reactive airway, wheezing famotidine 20 mg tablet 20 mg PO DAILY Qty: 90 0RF omeprazole 20 mg capsule,delayed release(DR/EC) 20 mg PO DAILY Qty: 90 0RF phenazopyridine [Pyridium] 200 mg tablet 200 mg PO TID MDD 3 PRN (Reason: pain) Qty: 6 3RF tamsulosin [Flomax] 0.4 mg capsule 0.4 mg PO DAILY Qty: 14 0RF Changed ketorolac 10 mg tablet 1 tab PO Q6H PRNQty: 15 0RF lorazepam 0.5 mg tablet 0.5 mg PO Q8H PRN (Reason: anxiety) Qty: 14 2RF Discharge Instructions Additional Instructions: no need to strain urine followup appt 6 weeks with renal US for the next 24 hours take: ketorolac 10 mg PO every 6 hours tramadol 100 mg every 6 hours lorazapam 0.5 mg every 8 hours after 24 hours, take those same medications on as needed basis may use over the counter tylenol along with prescription meds Activity:: Activity as Tolerated Equipment/Supplies:: No Equipment Needed Diet:: As Tolerated Discharge Orders Discharge Orders: Discharge Order (Routine); Ordered 08/05/22 Ordered By: Renato Samayoa DS: Diagnosis Discharge Diagnosis (1) Ureterolithiasis: Status: Acute
--- NOTE | 2022-08-05 14:04 | W.PM.OP ---
Date of service: 08/05/22 Time of Service: 14:04 Operative Note Operative Note DATE OF PROCEDURE: 08/05/22 PRE-OP DIAGNOSIS: Right ureteral stone POST-OP DIAGNOSIS: same PROCEDURE: Cystoscopy, right retrograde pyelogram, right semirigid ureteroscopy with stone extraction SURGEON: Renato Samayoa ANESTHESIA TYPE: General LMA/ETT Refer to Anesthesia Record ESTIMATED BLOOD LOSS: 0 PATHOLOGY: none sent COMPLICATIONS: None Patient was transported to: PACU Patient's condition: stable Implants: None Indications: This is a 62-year-old woman who has a history of calcium oxalate and calcium phosphate stones. She has been having right-sided flank pain and groin pain. She was evaluated with a CT scan and a right distal ureteral stone was identified. Because of persistent symptoms, she presents for stone manipulation Findings: Small right distal ureteral stone Procedure Description: The patient was given preoperative IV antibiotics. After successful induction of general anesthesia, she was placed in the dorsal lithotomy position. Her genitalia was prepped and draped. 2% Xylocaine jelly was instilled into the urethra to act as a local anesthetic. A 22 Slovenian rigid cystoscope was then passed through the urethra into the bladder. The bladder was inspected with a 30 degree lens. The right ureteral orifice was identified. Bloody urine could be seen draining from the right ureteral orifice with peristalsis. The right orifice was cannulated with a 5 Slovenian access catheter. Retrograde pyelogram was obtained by injecting Omnipaque through the access catheter under fluoroscopic guidance. A small filling defect was outlined in the distal ureter. I then passed a Glidewire through the lumen of the catheter and advanced the wire up the remainder of the ureter. The catheter was removed and the cystoscope was removed. We then passed a semirigid ureteroscope through the urethra into the bladder. I was able to maneuver the scope up to the level of the stone in the distal ureter. The stone was visualized and trapped in a Kathy stone basket. The stone was extracted in its entirety. Reintroduction of the scope revealed no additional stones. The patient tolerated this procedure with no complications. Since we did not dilate the distal ureter and since the stone was removed in 1 pass, we elected not to leave a ureteral stent.
[2022-08-05] MEDS: traMADol 50 MG TAB 100 MG PO (14:55)
[2022-08-05] MEDS: Phenazopyridine 200 MG TAB PO (14:56)
[2022-08-05] MEDS: Tamsulosin 0.4 MG CAPCR PO (14:56)
--- NOTE | 2022-08-05 15:07 | W.ANESPOSTOP ---
Postoperative Evaluation Date, Time and Location Date Performed: 08/05/22 Time Performed: 15:07 Patient Location: Day Surgery Unit Vital Signs Most Recent Imported Vital Signs: Most Recent Vital Signs Temp Pulse Resp BP Pulse Ox 36.1 C L 88 18 166/89 H 96 08/05/22 14:57 08/05/22 14:57 08/05/22 14:57 08/05/22 14:57 08/05/22 14:57 Pain Score Most Recent Pain Score: Most Recent Pain Score Pain Level 5 08/05/22 14:57 Assessment Mental Status: Awake (Alert & Oriented to Patient Baseline) Airway and Respiratory Function: Patent airway with normal (patient baseline) respiratory exam Cardiovascular Function: Hemodynamically Stable Hydration Status: Adequately Hydrated Nausea & Vomiting: No Nausea or Vomiting Pain: Pain is tolerable per patient Peripheral Nerve Block: Patient did not receive a nerve block
== END 2022-08-05 17:10 | disposition home or self-care (01) ==
PROVIDERS: Admitting Provider Urology; PCP Nurse Practitioner; Visit Provider Urology
PROC: (CPT 52320; principal; 2022-08-05 13:00)
DX: N20.1 Calculus of ureter (principal); R31.29 Other microscopic hematuria; F17.210 Nicotine dependence, cigarettes, uncomplicated; K21.9 Gastro-esophageal reflux disease without esophagitis; E78.5 Hyperlipidemia, unspecified; J45.20 Mild intermittent asthma, uncomplicated; M54.30 Sciatica, unspecified side
CPT/HCPCS: 52320; 87635; 96361; 96374; 74420; J0690; J1100; J1885; J2405; J2704; Q9967

== ENCOUNTER 2022-09-28 13:34 | Outpatient (REF) | payer OTHER, SELFPAY ==
[2022-09-28 15:57] LABS: C-Reactive Protein 0.07 mg/dL (0.0-0.3); Uric Acid 3.4 mg/dL (2.6-6.0)
[2022-09-28 17:45] LABS: Vitamin D 25 Total 14.2 ng/mL (30-100)
[2022-09-28 22:04] LABS: Rheumatoid Factor <8.6 IU/mL (<12.0)
[2022-09-29 09:48] LABS: Hepatitis B Surface Ag Negative (Negative)
[2022-09-29 11:22] LABS: Hepatitis C Ab w Rflx HCV PCR Negative (Negative)
[2022-09-29 13:37] LABS: ANA Interpretation Negative (Negative)
== END 2022-09-28 13:35 | disposition home or self-care (01) ==
LOC: LBN 13:34
PROVIDERS: PCP Nurse Practitioner; Visit Provider Nurse Practitioner
DX: M25.59 Pain in other specified joint (principal); M25.562 Pain in left knee; M25.512 Pain in left shoulder; E55.9 Vitamin D deficiency, unspecified; Z11.59 Encounter for screening for other viral diseases
CPT/HCPCS: 82306; 85652; 86803; 87340; 84550; 86038; 86140; 86431

== ENCOUNTER 2022-09-29 16:10 | Outpatient (REF) | payer OTHER, SELFPAY ==
[2022-09-29 16:15] LABS: ESR 5 mm/hr (0-30)
== END 2022-09-29 16:11 | disposition home or self-care (01) ==
LOC: NCHCN 16:10
PROVIDERS: PCP Nurse Practitioner; Visit Provider Nurse Practitioner
DX: M25.59 Pain in other specified joint (principal)
CPT/HCPCS: 85652

== ENCOUNTER 2023-02-16 11:02 | Emergency (ER) | payer OTHER, SELFPAY ==
[2023-02-16] VITALS (16 sets, daily range): BP systolic 132–138; BP diastolic 75–80; PULSE 85–115; RESP 11–20; TEMP 37; O2SAT 93–98
--- NOTE | 2023-02-16 11:00 | RT.EKG_ITS ---
APPROVED REPORT Exam: Resting ECG Reason for Exam: chest pain Patient Location: E HR:94 bpm ECG Measurements Heart Rate 94 AXIS [place] 130 P 71 QRSd 86 QRS 42 QT 372 T 42 QTc 466 Conclusion Sinus rhythm...normal P axis, V-rate 60- 99 Ventricular trigeminy...trigeminy string>6 w/ V complexes Ventricular trigeminy new when compared to 09/10/21
--- NOTE | 2023-02-16 11:15 | DI.US_ITS ---
Exam(s) US ABDOMEN EXAM: US ABDOMEN CLINICAL HISTORY: ruq and flank pain, please include kidneys and gb TECHNIQUE: Ultrasound abdomen performed using standard protocol. COMPARISON: CT CT RENAL COLIC WO from 08/04/2022 US US RENAL from 10/05/2022 FINDINGS: ABDOMINAL AORTA AND IVC: Visualized portions normal caliber. PANCREAS: Normal where visualized. LIVER: Normal. Hepatopedal flow in the Portal Vein. GALLBLADDER:No evidence of cholelithiasis. No evidence of wall thickening. No pericholecystic fluid i dentified. BILIARY SYSTEM: Common bile duct measures < 7 mm. No intrahepatic biliary ductal dilation. REYNA'S SIGN: Negative. KIDNEYS: Kidneys are symmetric in size. There is left nephrolithiasis. No hydronephrosis. No eviden ce of hydronephrosis. No renal mass or cyst identified. SPLEEN: Not enlarged. ASCITES: None seen. IMPRESSION: 1. Left nephrolithiasis. 2. Otherwise unremarkable examination. 3. Findings were discussed with the emergency department on the date of the examination. DATA REPOSITORY:
[2023-02-16 11:38] LABS: Abs Immature Grans 0.03 10^3/uL (0.0-0.06); Absolute Basophil Count 0.03 10^3/uL (0.0-0.2); Absolute Eosinophil Count 0.03 10^3/uL (0.0-0.7); Absolute Lymphocyte Count 0.26 10^3/uL (1.2-3.4); Absolute Neutrophil Count 8.49 10^3/uL (1.2-6.7); Basophils % 0.3; Eosinophils % 0.3; HCT 49.3 % (36.0-46.0); Immature Grans % 0.3; Lymphocytes % 2.9; MCH 26.5 pg (27.0-33.0); MCHC 32.5 % (32.0-36.0); MCV 82 fL (80-95); MPV 8.8 fL (8.0-11.0); Monocytes % 2.2; Platelet Count 221 10^3/uL (130-400); RDW 14.1 % (11.7-14.6); RDW-SD 41.7 fL; WBC 9.04 10^3/uL (4.4-10.8)
[2023-02-16] MEDS: LORazepam 2 MG/ML VIAL 1 MG IVP (11:43)
[2023-02-16 11:53] LABS: Diff Comment Diff Reviewed
[2023-02-16 11:54] LABS: RBC 6.03 10^6/uL (3.93-5.22); RBC Morphology Normal
[2023-02-16 12:12] LABS: ALT 24 U/L (14-59); AST 16 U/L (15-37); Albumin 3.7 g/dL (3.4-5.0); Alkaline Phosphatase 101 U/L (46-116); Anion Gap 9.9 mmol/L (3-11); BUN 18 mg/dL (7-18); Bilirubin, Total 0.6 mg/dL (0.2-1.0); CO2 24.1 mmol/L (21.0-32.0); CREATININE 0.6 mg/dL (0.55-1.02); Calcium 8.8 mg/dL (8.5-10.1); Chloride 106 mmol/L (98-107); Glucose 128 mg/dL (74-106); Lipase 28 U/L (16-77); Magnesium 1.9 mg/dL (1.8-2.4); Potassium 3.9 mmol/L (3.5-5.1); Sodium 140 mmol/L (136-145); Total Protein 7.1 g/dL (6.4-8.2); Troponin I < 50 ng/L (<or=60)
[2023-02-16] MEDS: Lactated Ringers 1,000 ML 1000 ML IV ×2 (12:36→13:26)
[2023-02-16] MEDS: FAMOTIDINE 20 MG in Normal Saline 100 ML 400 MG IVPB (12:36)
[2023-02-16] MEDS: Hyoscyamine 0.5 MG/ML VIAL 0.25 MG IVP (13:26)
[2023-02-16 13:39] LABS: Bilirubin Negative (Negative); Blood Trace-intact (Negative); Clarity Clear (Clear); Glucose Negative (Negative); Ketones Negative (Negative); Leukocyte Esterase Negative (Negative); Nitrite Negative (Negative); Urobilinogen 0.2 mg/dL (Up to 0.2)
[2023-02-16 13:51] LABS: Bacteria Negative HPF (Negative); Epithelial Cells Rare HPF (Negative); WBC 0-2 HPF (0-5)
[2023-02-16 13:52] LABS: C & S Indicated? No; Casts Negative LPF (Negative); Crystals Negative HPF (Negative); Mucus Trace (Negative)
--- NOTE | 2023-02-16 13:59 | ED.GENADUL_ITS ---
Discharge Plan Disposition Patient Disposition: Home Discharge Details Clinical Impression: Nausea vomiting and diarrhea Primary Care Provider: Neela Orantes ED Provider: Teresita Hall Home Meds and New Rx's Prescriptions: New ondansetron 4 mg tablet,disintegrating 4 mg PO TID PRNQty: 10 0RF Continued lorazepam 0.5 mg tablet 0.5 mg PO Q8H PRN (Reason: anxiety) Qty: 14 2RF fluticasone propionate [Flovent HFA] 110 mcg/actuation HFA aerosol inhaler 220 mcg Inhalation BID Qty: 3 3RF Rx Instructions: 2 puffs bid; rinse mouth after use; DISPENSE WITH A SPACER yearly albuterol sulfate 90 mcg/actuation HFA aerosol inhaler 2 puff Inhalation Q4H PRN Qty: 1 12RF Rx Instructions: with SPACER for reactive airway, wheezing phenazopyridine [Pyridium] 200 mg tablet 200 mg PO TID MDD 3 PRN (Reason: pain) Qty: 6 3RF ergocalciferol (vitamin D2) 1,250 mcg (50,000 unit) capsule 1,250 mcg PO QWEEK Qty: 12 3RF famotidine 20 mg tablet 20 mg PO DAILY Qty: 90 3RF omeprazole 20 mg capsule,delayed release(DR/EC) 20 mg PO DAILY Qty: 90 3RF methylprednisolone [Medrol (Jonha)] 4 mg tablets,dose pack See Rx Instructions .Route .COMPLEX Qty: 21 0RF Dose Instruction: 6 tabs day 1, 5 tabs day 2, 4 tabs day 3, 3 tabs day 4, 2 tabs day 5, 6 tabs day 6 with food. Rx Instructions: 6 tabs day 1, 5 tabs day 2, 4 tabs day 3, 3 tabs day 4, 2 tabs day 5, 1 tabs day 6 with food. Discharge Instructions Instructions: Acute Nausea and Vomiting (ED) Additional Instructions: Take Zofran as needed for nausea and vomiting Increase fluid hydration Please take small amounts of fluid and incorporate bland diet as tolerated Take Pepcid for discomfort Referrals: Neela Orantes, [employer]OKER[employer] MANAGER [Primary Care Provider] - 1 day Discharge Data Discharge Date/Time-TO BE ENTERED AT DEPARTURE: 02/16/23 16:39 Medical Decision Making Nausea vomiting diarrhea since 2 AM per patient, no blood in vomitus Will order CBC CMP, ultrasound right upper quadrant and flank Ultrasound does not show evidence of acute abnormality per radiology interpretation my review Diagnostic labs are reassuring, treated for suspected dehydration, feeling marked improvement after antiemetics and fluids Able to tolerate p.o. EKG and troponin negative for acute abnormality, please see attendings document ation Urinalysis is 3-5 episodes, encouraged follow-up with primary care physician for recheck of this Return precautions reviewed expressed understanding Discharged home in stable condition with stable vitals, return precautions reviewed HPI General Date/Time Provider Initiated Documentation: 02/16/23 11:11 . HPI Narrative: This 63-year-old female presents with report of nausea vomiting and diarrhea since this morning. Denies current chest pain or shortness of breath. States h er symptoms started around 2 AM. Denies blood in vomitus or stool. Denies regular alcohol consumption. Denies history of similar pain in the past. Related Data Home Medications Medication Instructions Recorded Confirmed albuterol sulfate 90 mcg/actuation 2 puff inhalation Q4H PRN #1 unit 04/13/21 08/05/22 aerosol inhaler fluticasone propionate 110 220 mcg inhalation BID ##3 04/13/21 08/05/22 mcg/actuation HFA aerosol inhaler (Flovent HFA) phenazopyridine 200 mg tablet 200 mg PO TID PRN pain #6 tabs 07/08/22 08/05/22 (Pyridium) lorazepam 0.5 mg tablet 0.5 mg PO Q8H PRN anxiety #14 tabs 08/05/22 08/05/22 ergocalciferol (vitamin D2) 1,250 1,250 mcg PO QWEEK #12 caps 09/29/22 mcg (50,000 unit) capsule famotidine 20 mg tablet 20 mg PO DAILY #90 tabs 10/25/22 omeprazole 20 mg capsule,delayed 20 mg PO DAILY #90 caps 10/25/22 release methylprednisolone 4 mg tablets in See Rx Instructions .Route 01/13/23 a dose pack (Medrol (Jonah)) .COMPLEX #21 dose pk ondansetron 4 mg disintegrating 4 mg PO TID PRN #10 tabs 02/16/23 tablet Previous Rx's Medication Instructions Recorded albuterol sulfate 90 mcg/actuation 2 puff inhalation Q4H PRN #1 unit 04/13/21 aerosol inhaler fluticasone propionate 110 220 mcg inhalation BID ##3 04/13/21 mcg/actuation HFA aerosol inhaler (Flovent HFA) phenazopyridine 200 mg tablet 200 mg PO TID PRN pain #6 tabs 07/08/22 (Pyridium) lorazepam 0.5 mg tablet 0.5 mg PO Q8H PRN anxiety #14 tabs 08/05/22 ergocalciferol (vitamin D2) 1,250 1,250 mcg PO QWEEK #12 caps 09/29/22 mcg (50,000 unit) capsule famotidine 20 mg tablet 20 mg PO DAILY #90 tabs 10/25/22 omeprazole 20 mg capsule,delayed 20 mg PO DAILY #90 caps 10/25/22 release methylprednisolone 4 mg tablets in See Rx Instructions .Route 01/13/23 a dose pack (Medrol (Jonah)) .COMPLEX #21 dose pk ondansetron 4 mg disintegrating 4 mg PO TID PRN #10 tabs 02/16/23 tablet Allergies Allergy/AdvReac Type Severity Reaction Status Date / Time Sulfa (Sulfonamide Allergy Unknown Rash Verified 10/11/22 14:30 Antibiotics) morphine AdvReac Severe Psychosis Verified 10/11/22 14:30 codeine AdvReac Intermediate jittery Verified 10/11/22 14:30 General Stated Complaint: Nausea/Vomit/Diar KLARISSA: 2 PFSH All Active Problems (Updated 02/16/23 @ 14:06 by MONALISA Marroquin) Nausea vomiting and diarrhea (Acute) Menopause (Chronic) Smoker (Chronic) a. Half pack a day. Adhesive capsulitis of left shoulder (Acute 09/16/17) Arthralgia of left acromioclavicular joint (Acute 10/14/17) Knee pain, left anterior (Acute 04/29/15) Patellar tendinitis of left knee (Acute 05/22/15) Sciatica (Acute 03/08/11) WITH LEFT WEAKNESS Trochanteric bursitis of left hip (Acute 05/22/15) Joint pain (Acute) Screening for cholesterol level (Acute) GERD (gastroesophageal reflux disease) (Chronic) Abnormal EKG (Acute) Hyperlipidemia (Acute) UTI (urinary tract infection) (Acute) Medical History (Updated 02/16/23 @ 14:06 by MONALISA Marroquin) GERD (gastroesophageal reflux disease) Left ureteral stone Mild intermittent reactive airway disease (07/08/15) flovent 07/2013, intol albuterol (shakey), post infection Nephrolithiasis Right ureteral stone (04/07/16) Ureterolithiasis Surgical History H/O breast augmentation History of section Hx of cystoscopy 3x kidney stone removal Social History Smoking/Tobacco Use Status: Current-Occasional Tobacco Type: cigarettes Smoking risk assessment performed?: Yes Alcohol Intake: current Alcohol Intake frequency: a few times a week Alcohol type: wine Drug use: Never Substance use type: does not use Number of Children: 2 current occupation: works at [employer] What type of physical activity do you participate in: none Seatbelt use: always Drive 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 Working smoke detector in home: Yes Fire extinguisher in home: Yes Carbon monox detector in home: Yes Do you feel safe at home: Yes Do you feel safe in your relationship?: Yes Exam Narrative Exam Narrative: Alert, oriented, pale, no scleral icterus, no meningismus, lungs clear to auscultation, cardiac rate rhythm regular, mild right upper quadrant abdominal tenderness, no rebound or guarding, pallor, alert and oriented x4, no peripheral edema no abdominal bruit or pulsatile mass, no CVA tenderness Course Vital Signs Vital signs: Vital Signs Temperature 37.0 C 02/16/23 11:04 Pulse 115 H 02/16/23 11:04 Respiratory Rate 20 02/16/23 11:04 Blood Pressure 132/80 02/16/23 11:04 Pulse Oximetry 96 02/16/23 11:04 Temperature 37.0 C 02/16/23 11:04 Temperature Source Skin 02/16/23 11:04 Pulse 97 H 02/16/23 13:28 Pulse 98 H 02/16/23 13:50 Respiratory Rate 17 02/16/23 13:50 Respiratory Effort Normal, Non-Labored 02/16/23 11:10 Blood Pressure 138/75 02/16/23 13:28 Blood Pressure Mean 88 02/16/23 13:28 Blood Pressure Position Sitting 02/16/23 11:04 Pulse Oximetry 96 02/16/23 12:30 Oxygen Delivery Method Room Air 02/16/23 11:04 Oxygen Flow Rate 0 02/16/23 11:04 Pain Level 8 02/16/23 11:04 Lab/Test Results Lab/Test Results: Laboratory Tests Range/Units 02/16/23 02/16/23 02/16/23 11:33 11:33 13:24 WBC (4.4-10.8) 10^3/uL 9.04 RBC (3.93-5.22) 10^6/uL 6.03 H Hgb (11.2-15.7) g/dL 16.0 H Hct (36.0-46.0) % 49.3 H MCV (80-95) fL 82 MCH (27.0-33.0) pg 26.5 L MCHC (32.0-36.0) % 32.5 RDW (11.7-14.6) % 14.1 Plt Count (130-400) 10^3/uL 221 MPV (8.0-11.0) fL 8.8 Immature Gran % 0.3 Neutrophils % 94.0 Lymphocytes % 2.9 Monocytes % 2.2 Eosinophils % 0.3 Basophils % 0.3 Nucleated RBC % (0.0-0.3) % 0.0 Absolute Neutrophils (1.2-6.7) 10^3/uL 8.49 H Absolute Lymphocytes (1.2-3.4) 10^3/uL 0.26 L Absolute Monocytes (0.1-0.8) 10^3/uL 0.20 Absolute Eosinophils (0.0-0.7) 10^3/uL 0.03 Absolute Basophils (0.0-0.2) 10^3/uL 0.03 RBC Morphology Normal Sodium (136-145) mmol/L 140 Potassium (3.5-5.1) mmol/L 3.9 Chloride (98-107) mmol/L 106 Carbon Dioxide (21.0-32.0) mmol/L 24.1 Anion Gap (3-11) mmol/L 9.9 BUN (7-18) mg/dL 18 Creatinine (0.55-1.02) mg/dL 0.6 Est GFR (CKD-EPI 2020) (mL/min/1.73m2) 100.80 Glucose (74-106) mg/dL 128 H Calcium (8.5-10.1) mg/dL 8.8 Magnesium (1.8-2.4) mg/dL 1.9 Total Bilirubin (0.2-1.0) mg/dL 0.6 AST (15-37) U/L 16 ALT (14-59) U/L 24 Alkaline Phosphatase (46-116) U/L 101 Troponin I (<or=60) ng/L < 50 Total Protein (6.4-8.2) g/dL 7.1 Albumin (3.4-5.0) g/dL 3.7 Lipase (16-77) U/L 28 Urine Color (Yellow) Yellow Urine Clarity (Clear) Clear Urine pH (5-8) 7.0 Ur Specific [place] (1.005-1.025) 1.020 Urine Protein (Negative) mg/dL Negative Urine Ketones (Negative) mg/dL Negative Urine Blood (Negative) Trace-intact H Urine Nitrite (Negative) Negative Urine Bilirubin (Negative) Negative Urine Urobilinogen (Up to 0.2) mg/dL 0.2 Ur Leukocyte Esterase (Negative) Negative Urine RBC (0-2) HPF 3-5 H Urine WBC (0-5) HPF 0-2 Ur Epithelial Cells (Negative) HPF Rare Urine Crystals (Negative) HPF Negative Urine Bacteria (Negative) HPF Negative Urine Casts (Negative) LPF Negative Urine Mucus (Negative) Trace Ur Culture Indicated? No Urine Glucose (Negative) mg/dL Negative
== END 2023-02-16 16:39 | disposition home or self-care (01) ==
PROVIDERS: Emergency Provider Physician Assistant; PCP Nurse Practitioner
DX: R11.2 Nausea with vomiting, unspecified (principal); R19.7 Diarrhea, unspecified; R07.9 Chest pain, unspecified; R10.13 Epigastric pain
CPT/HCPCS: 80053; 83690; 93005; 96361; 96365; 96375; 99284; 76700; 81003; 81015; 83735; 84484; 85025; 93010; J2060

== ENCOUNTER 2023-05-16 11:40 | Outpatient (REF) | payer OTHER, SELFPAY ==
[2023-05-16 16:17] LABS: Abs Immature Grans 0.02 10^3/uL (0.0-0.06); Absolute Basophil Count 0.07 10^3/uL (0.0-0.2); Absolute Eosinophil Count 0.07 10^3/uL (0.0-0.7); Absolute Lymphocyte Count 2.03 10^3/uL (1.2-3.4); Absolute Monocyte Count 0.39 10^3/uL (0.1-0.8); Absolute Neutrophil Count 5.53 10^3/uL (1.2-6.7); Basophils % 0.9; Eosinophils % 0.9; HCT 45.3 % (36.0-46.0); HGB 14.3 g/dL (11.2-15.7); Immature Grans % 0.2; MCH 26.1 pg (27.0-33.0); MCHC 31.6 % (32.0-36.0); MCV 83 fL (80-95); MPV 9.8 fL (8.0-11.0); Monocytes % 4.8; Neutrophils % 68.2; Platelet Count 261 10^3/uL (130-400); RBC 5.47 10^6/uL (3.93-5.22); RDW 13.7 % (11.7-14.6); RDW-SD 41.2 fL; WBC 8.11 10^3/uL (4.4-10.8)
[2023-05-16 16:24] LABS: ESR 18 mm/hr (0-30)
[2023-05-16 16:47] LABS: C-Reactive Protein 0.34 mg/dL (0.0-0.3); TSH (W/Ref FT4) 0.62 uIU/mL (0.36-3.74)
[2023-05-16 17:48] LABS: Vitamin D 25 Total 28.2 ng/mL (30-100)
[2023-05-18 09:18] LABS: Cyclic Citrullinated Peptide <2.5 U/mL (<5.0)
[2023-05-18 10:41] LABS: Lyme Ab w Rflx to Lyme Confirm Negative (Negative)
[2023-05-18 15:08] LABS: ANA Interpretation Positive (Negative); ANA Titer Pattern 1:80 Speckled
[2023-05-19 09:13] LABS: IgA 172 mg/dL (85-499); Interpretation (See Note); Tissue Transglutaminase IgA <1.2 U/mL (<4.0)
[2023-05-19 20:06] LABS: Anaplasma phagocytophilum Negative (Negative); B. miyamotoi PCR Negative (Negative); Babesia divergens/MO-1 Negative (Negative); Babesia duncani Negative (Negative); Babesia microti Negative (Negative); Ehrlichia chaffeensis Negative (Negative); Ehrlichia ewingii/canis Negative (Negative); Ehrlichia muris eauclairensis Negative (Negative)
== END 2023-05-16 11:41 | disposition home or self-care (01) ==
LOC: LBN 11:40
PROVIDERS: PCP Nurse Practitioner; Visit Provider Nurse Practitioner
DX: E55.9 Vitamin D deficiency, unspecified (principal); R53.83 Other fatigue; I10 Essential (primary) hypertension; R14.0 Abdominal distension (gaseous); M25.562 Pain in left knee
CPT/HCPCS: 82306; 82784; 83516; 85652; 86200; 87798; 84443; 85025; 86038; 86140; 86618

== ENCOUNTER → 2023-05-20 01:34 | Outpatient (CLI) | payer OTHER, SELFPAY ==
--- NOTE | 2023-05-20 07:15 | DI.RAD_ITS ---
Exam(s) XR KNEE LT 3V AP,LAT,BEN EXAM: XR KNEE LT 3V AP,LAT,BEN CLINICAL HISTORY: left knee pain,m25.562. TECHNIQUE: 2D digital imaging was performed. Three views. COMPARISON: No exams were available for comparison FINDINGS: BONES: No acute fracture is present. No bony destructive lesion is seen. JOINTS: The knee is normally aligned. No joint effusion is seen. SOFT TISSUE: Normal. IMPRESSION: Normal radiographs of the left knee. DATA REPOSITORY: RADIATION DOSE DELIVERED:
== END ==
PROVIDERS: PCP Nurse Practitioner; Visit Provider Nurse Practitioner
DX: M25.562 Pain in left knee (principal)
CPT/HCPCS: 73562

== ENCOUNTER 2023-06-16 13:13 | Outpatient (CLI) | payer OTHER, SELFPAY ==
[2023-06-17 09:13] LABS: C3 Complement 120 mg/dL (81-157); C4 Complement 20 mg/dL (13-39)
[2023-06-17 11:45] LABS: dsDNA Ab, IgG <12.3 IU/mL (<30.0)
[2023-06-17 16:11] LABS: SS-B (La) Ab, IgG 2.9 Units (<20.0)
[2023-06-17 16:16] LABS: Sm (Smith) Ab, IgG 9.3 Units (<20.0)
== END 2023-06-16 13:14 | disposition home or self-care (01) ==
LOC: LBO 13:14
PROVIDERS: PCP Nurse Practitioner; Visit Provider Nurse Practitioner
DX: R76.8 Other specified abnormal immunological findings in serum (principal)
CPT/HCPCS: 36415; 86160; 86225; 86235

== ENCOUNTER 2023-12-05 06:06 | Day surgery (SDC) | payer OTHER, SELFPAY ==
--- NOTE | 2023-12-04 18:30 | W.ANESPRE ---
General Info Date of Service Date Performed: 12/05/23 Height: 5 ft 5 in Weight: 63.503 kg Body Mass Index (BMI): 23.3 Surgical Procedure: Operation Date: 12/05/23 07:40 Proposed Procedure Side Surgeon p Cystoscopy/Laser/Retrograde/Ureteroscopy/Possible Stent Placement Left Renato Samayoa MD Meds Allergies and Home Medications Allergies Allergy/AdvReac Type Severity Reaction Status Date / Time Sulfa (Sulfonamide Allergy Unknown Rash Verified 12/05/23 06:35 Antibiotics) morphine AdvReac Severe Psychosis Verified 12/05/23 06:35 codeine AdvReac Intermediate jittery Verified 12/05/23 06:35 Home Medication Medication Instructions Recorded ergocalciferol (vitamin D2) 1,250 1,250 mcg PO QWEEK #12 caps 09/29/22 mcg (50,000 unit) capsule lorazepam 0.5 mg tablet 0.5 mg PO Q8H PRN anxiety #14 tabs 03/21/23 fluticasone propionate 110 220 mcg inhalation BID ##3 05/16/23 mcg/actuation HFA aerosol inhaler (Flovent HFA) albuterol sulfate 90 mcg/actuation 2 puff inhalation Q4H PRN #1 unit 10/24/23 aerosol inhaler famotidine 20 mg tablet 20 mg PO DAILY #90 tabs 10/24/23 omeprazole 20 mg capsule,delayed 20 mg PO DAILY #90 caps 10/24/23 release ketorolac 10 mg tablet 10 mg PO Q6H PRN pain #20 tabs 11/28/23 phenazopyridine 200 mg tablet 200 mg PO TID PRN pain #12 tabs 11/28/23 (Pyridium) acetaminophen 650 mg 650 mg PO Q8H PRN 12/05/23 tablet,extended release (8 Hour Pain Reliever) Current Visit Medications: Current Medications Generic Name Dose Route Start Last Admin Trade Name Freq PRN Reason Stop Dose Admin Ringer's Solution 1,000 mls @ 80 mls/hr 12/05/23 06:00 IV 12/05/23 23:59 INFUSION HOWARD Cefazolin Sodium/Dextrose 2 gm in 50 mls @ 100 mls/hr 12/05/23 06:00 Ancef Duplex IVPB 12/05/23 23:59 PREOP HOWARD IV Miscellaneous Supplies 1 each 12/05/23 06:00 Iv Access IV 12/05/23 23:59 DIRECTED HOWARD Sodium Chloride 0 ml 12/05/23 06:00 Normal Saline Flush 10 Ml Syr IV 12/05/23 23:59 PRN PRN Sodium Chloride 0 ml 12/05/23 06:00 Normal Saline 10 Ml Vial IJ 12/05/23 23:59 DIRECTED PRN Sterile Water 0 ml 12/05/23 06:00 Water,Injection,Sterile 10 Ml Vial IJ 12/05/23 23:59 DIRECTED PRN PFSH Active Problems Active Problems: Problem Status Onset Code Menopause Z78.0 Smoker F17.200 Adhesive capsulitis of left shoulder 09/16/17 M75.02 Arthralgia of left acromioclavicular joint 10/14/17 M25.512 Knee pain, left anterior 04/29/15 M25.562 Patellar tendinitis of left knee 05/22/15 M76.52 Sciatica 03/08/11 M54.30 Trochanteric bursitis of left hip 05/22/15 M70.62 Joint pain M25.50 Screening for cholesterol level Z13.220 GERD (gastroesophageal reflux disease) K21.9 Acute epigastric pain R10.13 Abnormal EKG R94.31 Hyperlipidemia E78.5 UTI (urinary tract infection) N39.0 Medical History Medical History Ureterolithiasis Left ureteral stone Right ureteral stone (04/07/16) Mild intermittent reactive airway disease (07/08/15) flovent 07/2013, intol albuterol (pedro luiskey), post infection GERD (gastroesophageal reflux disease) Nephrolithiasis Surgical History Surgical History Hx of cystoscopy 3x kidney stone removal History of section H/O breast augmentation Tobacco Smoking/Tobacco Use Status: Current-Occasional Tobacco Type: cigarettes Alcohol Alcohol Intake: current Alcohol intake frequency: a few times a week Alcohol type: wine Substance Use Substance use: Never Substance use type: does not use Vital Signs and Lab Results Vital Signs Most Recent Vital Signs in EMR: Temp Pulse Resp BP Pulse Ox 37.7 C H 78 20 148/93 H 97 12/05/23 06:35 12/05/23 06:35 12/05/23 06:35 12/05/23 06:35 12/05/23 06:35 Lab Results Blood Type / Crossmatch: No Data to Display Complete Blood Count: No Data to Display Complete Metabolic Panel: No Data to Display Liver Function Panel: No Data to Display Coagulation Panel: No Data to Display Cardiac Panel: No Data to Display Arterial Blood Gas: No Data to Display Venous Blood Gas: No Data to Display Pancreas Panel: No Data to Display Thyroid Panel: No Data to Display Infectious Disease: No Data to Display Blood Cultures: No Data to Display Toxicology Panel: No Data to Display Imaging and Studies Imaging and Studies Study information below may be from another EMR and interpreted by another provider. Please see original notes in EMR for more complete details. EKG Summary: 02/18: sinus, trijem Stress Test Summary: Stress ECG Conclusion 1. The resting electrocardiogram showed left ventricular hypertrophy with repolarization abnormalities 2. Patient exercised on the Willy protocol and completed a workload of 7.2 METS 3. Normal heart rate and blood pressure response to exercise. The patient achieved 100% of predicted heart rate for age 4. There was no electrocardiographic evidence of myocardial ischemia with exercise 5. Rare PVCs were noted Benitez Treadmill Score is 5.5 which is Low risk. 10/15/21 Echocardiogram Summary: Conclusion Left Ventricle : The left ventricle is normal size. The left ventricular ejection fraction is within the normal range. There is normal left ventricular wall thickness. There is normal LV segmental wall motion. The left ventricular diastolic function is normal. LVEF is 59%. Right Ventricle : Right ventricle is grossly normal in size. Right ventricular systolic function is grossly normal. Atria : The left atrium size is normal. The right atrium size is normal. Tricuspid Valve : The tricuspid valve is normal in structure. Trace tricuspid regurgitation. Unable to assess PA pressure. There is no tricuspid valve stenosis. Please see remainder of findings for further details. 09/10/21 Anesthesia Assessment and Plan Anesthesia History Personal History: No History of Anesthesia Complications Family History: No Family History of Anesthesia Complications Exercise Tolerance Exercise Tolerance: Metabolic Equivalents>4 Cardiac & Pulmonary Exam Cardiac Exam: Normal S1/S2 Heart Sounds Pulmonary Exam: Clear Bilateral Breath Sounds Implantable Cardiac Device Does patient have a Pacemaker or an ICD?: No Airway Exam Known Difficult Airway: No Mallampati Class: 2 Mouth Opening: Normal (> 3cm) Thyromental Distance: Greater than 3 cm Neck Range of Motion: Full ROM Neck Circumference: Normal Teeth Condition: Normal Dentition ASA Classification ASA Score: ASA 2 Emergency Case?: No NPO Status NPO Status: NPO Clears >2 hours, Solids >8 hours Anesthesia Plan Resuscitation Status: Full Code Anesthesia Technique: General Anesthesia Airway Planned: Endotracheal Tube Monitors Used: Standard Monitors Preoperative Comments:: 62 yo female for cysto. Sig PMHx: GERD (iffy control, sleeps with multiple pillows due to it), smoker, RAD (well controlled), kidney stones, occ EtOH. Previous Anes: - cysto, easy mask, glide 3 grade 1. preop sedation (unclear what). - cysto glide 3, RSI'd (bad GERD symptoms). midaz pre. - cysto LMA 4, MKO pre Plan: Preop sedation, GAETT. Extremely anxious.
[2023-12-05] VITALS (7 sets, daily range): BP systolic 104–148; BP diastolic 54–93; PULSE 68–78; RESP 12–20; TEMP 36.4–37.7; O2SAT 92–100; BMI 23.3
[2023-12-05] MEDS: Lactated Ringers 1,000 ML 80 ML IV (06:38)
--- NOTE | 2023-12-05 07:01 | HPE_ITS ---
Date of service: 12/05/23 Time of Service: 07:01 Assessment and Plan Assessment and plan (1) Nephrolithiasis: Assessment and plan: For cystoscopy with left rterograde pyelogram, left flexible ureteroscopy and holmium laser lithotripsy of her stone History of Present Illness History of Present Illness Chief Complaint: Left kidney stone Narrative: This is a 63-year-old woman who has a history of calcium based kidney stones. She has not been able to pass even small stones measuring up to 2 mm. She comes in now with left-sided discomfort. She rates her pain as being constant in about 2-3 out of 10. She has nausea and dry heaves. She has some chills but no documented fever. She also has what she describes as a pinching sensation in the urethra. All of the symptoms are similar to her previous stone episodes. She is not seeing any gross hematuria and not having any dysuria. Her renal US from a month ago showed a nonobstructing left kidney stone Review of Systems Constitutional Comments: No fevers or chills No vision change or dysphasia No diabetes or thyroid dysfunction No shortness of breath, cough or hemoptysis No chest pain or palpitations GERD. No hepatitis, ulcers, jaundice No seizures, strokes or peripheral neuropathy No bleeding disorders or anemia No gout PFSH All Active Problems Menopause (Chronic) Smoker (Chronic) a. Half pack a day. Adhesive capsulitis of left shoulder (Acute 09/16/17) Arthralgia of left acromioclavicular joint (Acute 10/14/17) Knee pain, left anterior (Acute 04/29/15) Patellar tendinitis of left knee (Acute 05/22/15) Sciatica (Acute 03/08/11) WITH LEFT WEAKNESS Trochanteric bursitis of left hip (Acute 05/22/15) Joint pain (Acute) Screening for cholesterol level (Acute) GERD (gastroesophageal reflux disease) (Chronic) Abnormal EKG (Acute) Hyperlipidemia (Acute) UTI (urinary tract infection) (Acute) Medical History Ureterolithiasis Left ureteral stone Right ureteral stone (04/07/16) Mild intermittent reactive airway disease (07/08/15) flovent 07/2013, intol albuterol (shakey), post infection GERD (gastroesophageal reflux disease) Nephrolithiasis Surgical History Hx of cystoscopy 3x kidney stone removal History of section H/O breast augmentation Social History Smoking/Tobacco Use Status: Current-Occasional Tobacco Type: cigarettes Smoking risk assessment performed?: Yes Alcohol Intake: current Alcohol Intake frequency: a few times a week Alcohol type: wine Drug use: Never Substance use type: does not use Housing: house Number of Children: 2 current occupation: works at [employer] What type of physical activity do you participate in: none Seatbelt use: always Drive intox 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 Working smoke detector in home: Yes Fire extinguisher in home: Yes Carbon monox detector in home: Yes Do you feel safe at home: Yes Do you feel safe in your relationship?: Yes Meds Allergies and Home Medications Allergies Allergy/AdvReac Type Severity Reaction Status Date / Time Sulfa (Sulfonamide Allergy Unknown Rash Verified 12/05/23 06:35 Antibiotics) morphine AdvReac Severe Psychosis Verified 12/05/23 06:35 codeine AdvReac Intermediate jittery Verified 12/05/23 06:35 Home Medications Medication Instructions Recorded Confirmed Type ergocalciferol (vitamin D2) 1,250 1,250 mcg PO QWEEK #12 caps 09/29/22 12/05/23 Rx mcg (50,000 unit) capsule lorazepam 0.5 mg tablet 0.5 mg PO Q8H PRN anxiety #14 tabs 03/21/23 12/05/23 Rx fluticasone propionate 110 220 mcg inhalation BID ##3 05/16/23 12/05/23 Rx mcg/actuation HFA aerosol inhaler (Flovent HFA) albuterol sulfate 90 mcg/actuation 2 puff inhalation Q4H PRN #1 unit 10/24/23 12/05/23 Rx aerosol inhaler famotidine 20 mg tablet 20 mg PO DAILY #90 tabs 10/24/23 12/05/23 Rx omeprazole 20 mg capsule,delayed 20 mg PO DAILY #90 caps 10/24/23 12/05/23 Rx release ketorolac 10 mg tablet 10 mg PO Q6H PRN pain #20 tabs 11/28/23 12/05/23 Rx phenazopyridine 200 mg tablet 200 mg PO TID PRN pain #12 tabs 11/28/23 12/05/23 Rx (Pyridium) acetaminophen 650 mg 650 mg PO Q8H PRN 12/05/23 12/05/23 History tablet,extended release (8 Hour Pain Reliever) Exam Const General: cooperative and anxious Neck Neck: supple Resp Effort & Inspection: normal respiratory effort Auscultation: clear to auscultation bilaterally Cardio Rate: regular rate Rhythm: regular rhythm GI Palpation: soft and no masses Neuro General: patient alert, patient awake and patient oriented x3 Results Last Vital Signs Temp 37.7 C H 12/05/23 06:35 Pulse 78 12/05/23 06:35 Resp 20 12/05/23 06:35 BP 148/93 H 12/05/23 06:35 Pulse Ox 97 12/05/23 06:35 Time Spent Time spent with Patient: <40 minutes Time was spent: other
[2023-12-05] MEDS: ceFAZolin 2 GM/50 ML BAG IVPB (07:22)
[2023-12-05] MEDS: Lidocaine 2% Jelly 11 ML SYR (07:50)
--- NOTE | 2023-12-05 08:15 | DI.RAD_ITS ---
Exam(s) XR RETROGRADE IN OR EXAM: XR RETROGRADE IN OR CLINICAL HISTORY: Nephrolithiasis. TECHNIQUE: Fluoroscopy was provided for the referring physician for guidance with performing a retro grade procedure. COMPARISON: US US RENAL from 10/03/2023 FINDINGS: Please see procedure note for details. Fluoro time: 0.17 seconds RADIATION DOSE DELIVERED: rosette Chase=1.9 mGy
--- NOTE | 2023-12-05 08:18 | W.PM.DSUDISC ---
Date of service: 12/05/23 Time of Service: 08:18 Discharge Plan Disposition Patient Disposition: Home Discharge Details Attending Provider: Renato Samayoa Primary Care Provider: Neela Orantes Home Meds and New Rx's Prescriptions: No Action ketorolac 10 mg tablet 10 mg PO Q6H PRN (Reason: pain) Qty: 20 0RF Rx Instructions: maximum total duration of 5 days phenazopyridine [Pyridium] 200 mg tablet 200 mg PO TID PRN (Reason: pain) Qty: 12 0RF ergocalciferol (vitamin D2) 1,250 mcg (50,000 unit) capsule 1,250 mcg PO QWEEK Qty: 12 3RF lorazepam 0.5 mg tablet 0.5 mg PO Q8H PRN (Reason: anxiety) Qty: 14 0RF fluticasone propionate [Flovent HFA] 110 mcg/actuation HFA aerosol inhaler 220 mcg Inhalation BID Qty: 3 3RF Rx Instructions: 2 puffs bid; rinse mouth after use; DISPENSE WITH A SPACER yearly albuterol sulfate 90 mcg/actuation HFA aerosol inhaler 2 puff Inhalation Q4H PRN Qty: 1 12RF Rx Instructions: with SPACER for reactive airway, wheezing famotidine 20 mg tablet 20 mg PO DAILY Qty: 90 3RF omeprazole 20 mg capsule,delayed release(DR/EC) 20 mg PO DAILY Qty: 90 3RF acetaminophen [8 Hour Pain Reliever] 650 mg tablet extended release 650 mg PO Q8H PRN Discharge Instructions Additional Instructions: no need to strain urine Discharge Orders Discharge Orders: Discharge Order (Routine); Ordered 12/05/23 Ordered By: Renato Samayoa DS: Diagnosis Discharge Diagnosis (1) Nephrolithiasis:
--- NOTE | 2023-12-05 08:21 | W.PM.OP ---
Date of service: 12/05/23 Time of Service: 08:21 Operative Note Operative Note DATE OF PROCEDURE: 12/05/23 PRE-OP DIAGNOSIS: Left kidney stones PROCEDURE: cystoscopy, left retrograde pyelogram, left ureteroscopy with stone manipulation SURGEON: Renato Samayoa ANESTHESIA TYPE: Local By Surgeon and General LMA/ETT Refer to Anesthesia Record ESTIMATED BLOOD LOSS: 5 PATHOLOGY: none sent COMPLICATIONS: None Patient was transported to: PACU Patient's condition: stable Implants: none Indications: This is a 63-year-old woman who has a history of calcium based kidney stones. She has been having some left-sided back pain along with nausea. On ultrasound, she had a nonobstructing 7 mm kidney stone. She presents now for stone manipulation Findings: No large kidney stone, but multiple small stone particles Procedure Description: The patient was given preoperative IV antibiotics and brought to the operating room on 12/05/2023. After successful induction of general anesthesia, she was placed in the dorsal lithotomy position. Her genitalia was prepped and draped. 2% Xylocaine jelly was instilled into the urethra to act as a local anesthetic. A 22 Pakistani rigid cystoscope was passed through the urethra into the bladder. The bladder was inspected with a 30 degree lens. Both ureteral orifices appeared normal with no blood coming from either side. No stones were seen within the lumen of the bladder. The left orifice was cannulated with a 6 Pakistani access catheter. A retrograde pyelogram was obtained by injecting Omnipaque through the access catheter under fluoroscopic guidance. No filling defects were seen in the ureters or collecting systems. A guidewire was then advanced through the lumen of the access catheter. The access catheter was removed and a dual-lumen catheter was passed over the wire. A second wire was passed up the ureter. We chose one of the wires as a working wire and the other as a safety wire. We passed the ureteral access sheath over the working wire leaving the safety wire in place. Each of the calyces were then inspected using a flexible ureteroscope. No large stone burden was seen, but multiple small stones were identified. Most of the stones were adherent to the mucosa. I was able to free the stones with a combination of the scope and stone basket. At the completion of our procedure, no large stone burden was identified. The ureteroscope was removed. We then remove the access sheath and safety wire. We elected not to place a ureteral stent as the patient has had complications related to stent placement in the past. The patient tolerated this procedure well with no complications.
[2023-12-05] MEDS: Omnipaque 300 MG/ML 50 ML BTL (08:24)
--- NOTE | 2023-12-05 09:08 | W.ANESPOSTOP ---
Postoperative Evaluation Date, Time and Location Date Performed: 12/05/23 Time Performed: 09:08 Patient Location: PACU Vital Signs Most Recent Imported Vital Signs: Most Recent Vital Signs Temp Pulse Resp BP Pulse Ox 36.4 C L 71 16 126/76 93 12/05/23 08:59 12/05/23 08:59 12/05/23 08:59 12/05/23 08:59 12/05/23 08:59 Pain Score Most Recent Pain Score: Most Recent Pain Score Pain Level 3 12/05/23 08:59 Assessment Mental Status: Awake (Alert & Oriented to Patient Baseline) Airway and Respiratory Function: Patent airway with normal (patient baseline) respiratory exam Cardiovascular Function: Hemodynamically Stable Hydration Status: Adequately Hydrated Nausea & Vomiting: No Nausea or Vomiting Pain: Pain is tolerable per patient Peripheral Nerve Block: Patient did not receive a nerve block
[2023-12-05] MEDS: Phenazopyridine 200 MG TAB PO (09:10)
[2023-12-05] MEDS: Tamsulosin 0.4 MG CAPCR PO (09:10)
[2023-12-05] MEDS: Oxybutynin 5 MG TAB PO (09:11)
--- NOTE | 2023-12-05 09:13 | W.PM.DSUDISC ---
Date of service: 12/05/23 Time of Service: 09:14 Discharge Plan Disposition Patient Disposition: Home Discharge Details Attending Provider: Renato Samayoa Primary Care Provider: Neela Orantes Home Meds and New Rx's Prescriptions: No Action ketorolac 10 mg tablet 10 mg PO Q6H PRN (Reason: pain) Qty: 20 0RF Rx Instructions: maximum total duration of 5 days phenazopyridine [Pyridium] 200 mg tablet 200 mg PO TID PRN (Reason: pain) Qty: 12 0RF ergocalciferol (vitamin D2) 1,250 mcg (50,000 unit) capsule 1,250 mcg PO QWEEK Qty: 12 3RF lorazepam 0.5 mg tablet 0.5 mg PO Q8H PRN (Reason: anxiety) Qty: 14 0RF fluticasone propionate [Flovent HFA] 110 mcg/actuation HFA aerosol inhaler 220 mcg Inhalation BID Qty: 3 3RF Rx Instructions: 2 puffs bid; rinse mouth after use; DISPENSE WITH A SPACER yearly albuterol sulfate 90 mcg/actuation HFA aerosol inhaler 2 puff Inhalation Q4H PRN Qty: 1 12RF Rx Instructions: with SPACER for reactive airway, wheezing famotidine 20 mg tablet 20 mg PO DAILY Qty: 90 3RF omeprazole 20 mg capsule,delayed release(DR/EC) 20 mg PO DAILY Qty: 90 3RF acetaminophen [8 Hour Pain Reliever] 650 mg tablet extended release 650 mg PO Q8H PRN Discharge Instructions Additional Instructions: no need to strain urine followup 6 to 8 weeks with renal US Activity:: Activity as Tolerated Shower/Bathe:: 24 hours Diet:: As Tolerated Discharge Orders Discharge Orders: Discharge Order (Routine); Ordered 12/05/23 Ordered By: Renato Samayoa DS: Diagnosis Discharge Diagnosis (1) Nephrolithiasis:
[2023-12-05] MEDS: traMADol 50 MG TAB PO (09:40)
== END 2023-12-05 06:07 | disposition home or self-care (01) ==
PROVIDERS: PCP Nurse Practitioner; Visit Provider Urology
PROC: (CPT 52352; principal; 2023-12-05 07:30)
DX: N20.0 Calculus of kidney (principal); E78.5 Hyperlipidemia, unspecified; K21.9 Gastro-esophageal reflux disease without esophagitis
CPT/HCPCS: 52352; 74420; J0690; J1100; J1885; J2001; J2250; J2371; J2405; J2704; Q9967

== ENCOUNTER 2023-12-08 07:00 | Emergency (ER) | payer OTHER, SELFPAY ==
[2023-12-08 07:04] VITALS: BP 200/95; PULSE 92; RESP 16; TEMP 36.6; O2SAT 95
[2023-12-08 07:09] VITALS: BP 200/95; PULSE 92; RESP 16; TEMP 36.6; O2SAT 95
--- NOTE | 2023-12-08 07:15 | W.ED.GENAD ---
Discharge Plan Disposition Patient Disposition: Home Discharge Details Clinical Impression: Acute flank pain, Nausea, Hypokalemia Primary Care Provider: Neela Orantes ED Provider: Althea Baum Home Meds and New Rx's Prescriptions: New tamsulosin [Flomax] 0.4 mg capsule 0.4 mg PO DAILY Qty: 30 0RF cephalexin 500 mg capsule 500 mg PO BID 7 Days Qty: 14 0RF tamsulosin [Flomax] 0.4 mg capsule 0.4 mg PO DAILY Qty: 30 0RF cephalexin 500 mg capsule 500 mg PO BID 7 Days Qty: 14 0RF ketorolac 10 mg tablet 10 mg PO Q8H PRNQty: 10 0RF Rx Instructions: maximum total duration of 5 days from all oral, intranasal, or parenteral formulations No Action ketorolac 10 mg tablet 10 mg PO Q6H PRN (Reason: pain) Qty: 20 0RF Rx Instructions: maximum total duration of 5 days phenazopyridine [Pyridium] 200 mg tablet 200 mg PO TID PRN (Reason: pain) Qty: 12 0RF ergocalciferol (vitamin D2) 1,250 mcg (50,000 unit) capsule 1,250 mcg PO QWEEK Qty: 12 3RF lorazepam 0.5 mg tablet 0.5 mg PO Q8H PRN (Reason: anxiety) Qty: 14 0RF fluticasone propionate [Flovent HFA] 110 mcg/actuation HFA aerosol inhaler 220 mcg Inhalation BID Qty: 3 3RF Rx Instructions: 2 puffs bid; rinse mouth after use; DISPENSE WITH A SPACER yearly albuterol sulfate 90 mcg/actuation HFA aerosol inhaler 2 puff Inhalation Q4H PRN Qty: 1 12RF Rx Instructions: with SPACER for reactive airway, wheezing famotidine 20 mg tablet 20 mg PO DAILY Qty: 90 3RF omeprazole 20 mg capsule,delayed release(DR/EC) 20 mg PO DAILY Qty: 90 3RF acetaminophen [8 Hour Pain Reliever] 650 mg tablet extended release 650 mg PO Q8H PRN Discharge Instructions Instructions: Flank Pain (ED) Additional Instructions: Continue the Toradol as needed for pain. You can also take Tylenol as needed Start Flomax. Your urine culture will take a few days to determine if you have an infection. Until that time, we will start you on antibiotics just in case. The urology clinic will follow-up with you to be seen on Tuesday or Tuesday HPI General Date/Time Provider Initiated Documentation: 12/08/23 07:07. Limitations to Documentation: no limitations. Information obtained by: patient. HPI Narrative: 63-year-old female past medical history including GERD, kidney stones status post cystoscopy, left retrograde pyelogram, left ureteroscopy with stone manipulation on December 04. Patient reports that yesterday she started having lower abdominal and left flank pain associated with severe nausea. No significant vomiting. Chills but no fever. Symptoms have been severe, constant and worsening today. She has not been able to tolerate anything to eat. She has taken her Toradol as well as Pyridium. She reports that this morning she passed a blood clot in her urine. She has had this procedure previously and never had issues like this. She endorses significant pain anxiety about taking medicine and being in the emergency department. Related Data Home Medications Medication Instructions Recorded Confirmed ergocalciferol (vitamin D2) 1,250 1,250 mcg PO QWEEK #12 caps 09/29/22 12/08/23 mcg (50,000 unit) capsule lorazepam 0.5 mg tablet 0.5 mg PO Q8H PRN anxiety #14 tabs 03/21/23 12/08/23 fluticasone propionate 110 220 mcg inhalation BID ##3 05/16/23 12/08/23 mcg/actuation HFA aerosol inhaler (Flovent HFA) albuterol sulfate 90 mcg/actuation 2 puff inhalation Q4H PRN #1 unit 10/24/23 12/08/23 aerosol inhaler famotidine 20 mg tablet 20 mg PO DAILY #90 tabs 10/24/23 12/08/23 omeprazole 20 mg capsule,delayed 20 mg PO DAILY #90 caps 10/24/23 12/08/23 release ketorolac 10 mg tablet 10 mg PO Q6H PRN pain #20 tabs 11/28/23 12/08/23 phenazopyridine 200 mg tablet 200 mg PO TID PRN pain #12 tabs 11/28/23 12/08/23 (Pyridium) acetaminophen 650 mg 650 mg PO Q8H PRN 12/05/23 12/08/23 tablet,extended release (8 Hour Pain Reliever) cephalexin 500 mg capsule 500 mg PO BID 7 days #14 caps 12/08/23 cephalexin 500 mg capsule 500 mg PO BID 7 days #14 caps 12/08/23 ketorolac 10 mg tablet 10 mg PO Q8H PRN #10 tabs 12/08/23 tamsulosin 0.4 mg capsule (Flomax) 0.4 mg PO DAILY #30 caps 12/08/23 tamsulosin 0.4 mg capsule (Flomax) 0.4 mg PO DAILY #30 caps 12/08/23 Previous Rx's Medication Instructions Recorded ergocalciferol (vitamin D2) 1,250 1,250 mcg PO QWEEK #12 caps 09/29/22 mcg (50,000 unit) capsule lorazepam 0.5 mg tablet 0.5 mg PO Q8H PRN anxiety #14 tabs 03/21/23 fluticasone propionate 110 220 mcg inhalation BID ##3 05/16/23 mcg/actuation HFA aerosol inhaler (Flovent HFA) albuterol sulfate 90 mcg/actuation 2 puff inhalation Q4H PRN #1 unit 10/24/23 aerosol inhaler famotidine 20 mg tablet 20 mg PO DAILY #90 tabs 10/24/23 omeprazole 20 mg capsule,delayed 20 mg PO DAILY #90 caps 10/24/23 release ketorolac 10 mg tablet 10 mg PO Q6H PRN pain #20 tabs 11/28/23 phenazopyridine 200 mg tablet 200 mg PO TID PRN pain #12 tabs 11/28/23 (Pyridium) cephalexin 500 mg capsule 500 mg PO BID 7 days #14 caps 12/08/23 cephalexin 500 mg capsule 500 mg PO BID 7 days #14 caps 12/08/23 ketorolac 10 mg tablet 10 mg PO Q8H PRN #10 tabs 12/08/23 tamsulosin 0.4 mg capsule (Flomax) 0.4 mg PO DAILY #30 caps 12/08/23 tamsulosin 0.4 mg capsule (Flomax) 0.4 mg PO DAILY #30 caps 12/08/23 Allergies Allergy/AdvReac Type Severity Reaction Status Date / Time Sulfa (Sulfonamide Allergy Unknown Rash Verified 12/08/23 07:02 Antibiotics) morphine AdvReac Severe Psychosis Verified 12/08/23 07:02 codeine AdvReac Intermediate jittery Verified 12/08/23 07:02 General Stated Complaint: FlankPain KLARISSA: 3 Exam Narrative Exam Narrative: Review of Systems: All systems reviewed & are unremarkable except as noted in HPI and below Well-developed, appears uncomfortable NCAT PERRL, normal conjunctiva RRR Unlabored respiratory effort, clear bilaterally Nondistended, soft, suprapubic tenderness with guarding noted, no CVA tenderness abdomen Extremities w/o deformity, no cyanosis, no edema No rashes or lesions. no focal neurologic deficits Appropriate mood and affect Course Vital Signs Vital signs: Vital Signs Temperature 36.6 C 12/08/23 07:04 Pulse 92 H 12/08/23 07:04 Respiratory Rate 16 12/08/23 07:04 Blood Pressure 200/95 H 12/08/23 07:04 Pulse Oximetry 95 12/08/23 07:04 Temperature 36.6 C 12/08/23 07:09 Temperature Source Temporal Artery Scan 12/08/23 07:09 Pulse 92 H 12/08/23 07:09 Respiratory Rate 16 12/08/23 07:09 Respiratory Effort Normal, Non-Labored 12/08/23 07:07 Blood Pressure 200/95 H 12/08/23 07:09 Blood Pressure Position Sitting 12/08/23 07:09 Pulse Oximetry 95 12/08/23 07:09 Oxygen Delivery Method Room Air 12/08/23 07:09 Oxygen Flow Rate 0 12/08/23 07:09 Pain Level 5 12/08/23 07:09 Medical Decision Making Emergent evaluation of abdominal and left flank pain after urologic procedure. Initial differential includes infection, stone, perforation. Plan for pain control and will check labs, urinalysis and CT imaging. Lab work reviewed. No leukocytosis or anemia. Renal function is at baseline. She does have mild elevation in anion gap and BUN, she was resuscitated with IV fluids. Mild hypokalemia and this was given orally. Urinalysis reviewed it is abnormal with ketones, blood and nitrite positive. I suspect that the nitrite positive result is secondary to the Pyridium. She has no leukocyte Estrace and only rare bacteria. However due to her symptoms, a culture has been sent and we will start antibiotics until culture results. Reviewed the medical record, no prior positive blood cultures. Discussed with urology. They concur with the plan to start antibiotics. Continue Toradol. And will start Flomax. They will follow-up with her on Tuesday or Tuesday in clinic and monitor the cultures. Medical Records Medical records reviewed: Yes I reviewed the patient's medical records. Lab Data Lab results reviewed: Yes I reviewed the patient's lab results. Quality:SDOH Health Related Social Needs: No Data to Display PFSH All Active Problems (Updated 12/08/23 @ 09:19 by Althea Baum MD) Hypokalemia (Acute) Nausea (Acute) Acute flank pain (Acute) Menopause (Chronic) Smoker (Chronic) a. Half pack a day. Adhesive capsulitis of left shoulder (Acute 09/16/17) Arthralgia of left acromioclavicular joint (Acute 10/14/17) Knee pain, left anterior (Acute 04/29/15) Patellar tendinitis of left knee (Acute 05/22/15) Sciatica (Acute 03/08/11) WITH LEFT WEAKNESS Trochanteric bursitis of left hip (Acute 05/22/15) Joint pain (Acute) Screening for cholesterol level (Acute) GERD (gastroesophageal reflux disease) (Chronic) Abnormal EKG (Acute) Hyperlipidemia (Acute) UTI (urinary tract infection) (Acute) Medical History Ureterolithiasis Left ureteral stone Right ureteral stone (04/07/16) Mild intermittent reactive airway disease (07/08/15) flovent 07/2013, intol albuterol (escobar), post infection GERD (gastroesophageal reflux disease) Nephrolithiasis Surgical History Hx of cystoscopy 3x kidney stone removal History of section H/O breast augmentation Social History Smoking/Tobacco Use Status: Current-Occasional Tobacco Type: cigarettes Smoking risk assessment performed?: Yes Alcohol Intake: current Alcohol Intake frequency: a few times a week Alcohol type: wine Drug use: Never Substance use type: does not use Housing: house Number of Children: 2 current occupation: works at [employer] What type of physical activity do you participate in: none Seatbelt use: always Drive intox or ride w/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
[2023-12-08] MEDS: Normal Saline Flush 10 ML SYR IVP (07:27)
[2023-12-08] MEDS: LORazepam 2 MG/ML VIAL 1 MG IVP (07:35)
[2023-12-08] MEDS: Normal Saline 1,000 ML 1000 ML IV (07:36)
[2023-12-08 08:01] LABS: Abs Immature Grans 0.02 10^3/uL (0.0-0.06); Absolute Basophil Count 0.05 10^3/uL (0.0-0.2); Absolute Eosinophil Count 0.12 10^3/uL (0.0-0.7); Absolute Lymphocyte Count 1.18 10^3/uL (1.2-3.4); Absolute Monocyte Count 0.35 10^3/uL (0.1-0.8); Absolute Neutrophil Count 5.55 10^3/uL (1.2-6.7); Basophils % 0.7; Eosinophils % 1.7; HCT 48.1 % (36.0-46.0); HGB 15.4 g/dL (11.2-15.7); Immature Grans % 0.3; Lymphocytes % 16.2; MCH 26.6 pg (27.0-33.0); MCV 83 fL (80-95); MPV 9.9 fL (8.0-11.0); Monocytes % 4.8; Neutrophils % 76.3; Platelet Count 217 10^3/uL (130-400); RBC 5.79 10^6/uL (3.93-5.22); RDW 13.9 % (11.7-14.6); RDW-SD 42.1 fL; WBC 7.27 10^3/uL (4.4-10.8)
--- NOTE | 2023-12-08 08:10 | DI.CT_ITS ---
Exam(s) CT RENAL COLIC WO EXAM: CT RENAL COLIC WO CLINICAL HISTORY: flank pain. TECHNIQUE: Imaging Protocol: Axial computed tomography images with coronal and sagittal reformatted images were created and reviewed. COMPARISON: CT CT RENAL COLIC WO from 08/04/2022 XA XR RETROGRADE IN OR from 12/05/2023 FINDINGS: ABDOMEN: Lung Bases: Inferior portions of the patient's bilateral breast implants are visualized. There is sc arring or atelectasis in the lung bases. No focal consolidating infiltrates are present. Liver: Normal density. No measurable mass. Gallbladder and biliary tract: No radiodense calculus or biliary ductal dilation. Pancreas: Normal density, no abnormal calcifications or inflammatory process. Spleen: Normal. Kidneys: There is a duplicated left renal collecting system. There is mild dilatation of the upper p ole moiety with a question of a 1-2 mm stone near the UVJ. (Series 3, image 629). The lower pole mo iety is unremarkable. There are stones seen in the left kidney. There is a single stones seen in th e midpole of the right kidney. No evidence of right ureterolithiasis. No masses seen. Adrenal glands: No mass is seen. Lymph nodes: Within normal limits. Abdominal Aorta: Abdominal portion non-dilated. Atherosclerotic calcification is present. PELVIS: Bladder:Symmetric distention, no gross wall thickening. Bowel: There is diverticulosis seen in the colon but no evidence of acute diverticulitis. The stomac h is incompletely distended limiting evaluation. There is no evidence of bowel obstruction or bowel wall thickening. No evidence of appendicitis. Peritoneal cavity: No ascites, collection or mesenteric inflammatory response. No free air. Reproductive organs: Unremarkable as visualized. Bones: Within normal limits. Soft Tissues: Within normal limits. IMPRESSION: 1. Question of a 1-2 mm stone near the left UVJ of the upper pole moiety of the left duplicated renal collecting system. There is mild dilatation of this system. 2. Left nephrolithiasis. RADIATION DOSE DELIVERED: Total DLP DATA REPOSITORY: All CT scans at this facility are submitted to the National Radiology Data Registry (NRDR) Dose Index Registry (DIR) with the [employer] (A[employer]). RADIATION OPTIMIZATION: All CT scans at this facility use at least one of these dose optimization te chniques: automated exposure control; mA and/or kV adjustment per patient size (includes targeted exa ms where dose is matched to clinical indication); or iterative reconstruction.
[2023-12-08 08:15] LABS: Anion Gap 13.7 mmol/L (3-11); BUN 21 mg/dL (7-18); CO2 25.3 mmol/L (21.0-32.0); CREATININE 0.8 mg/dL (0.55-1.02); Calcium 9.3 mg/dL (8.5-10.1); Chloride 105 mmol/L (98-107); Estimated GFR 82.74 (mL/min/1.73m2); Glucose 95 mg/dL (74-106); Potassium 3.4 mmol/L (3.5-5.1); Sodium 144 mmol/L (136-145)
[2023-12-08 08:18] VITALS: BP 149/77; PULSE 72; RESP 16; O2SAT 94
[2023-12-08 08:42] LABS: Bilirubin Small (Negative); Blood Large (Negative); Clarity Cloudy (Clear); Glucose 100 mg/dL (Negative); Ketones 40 mg/dL (Negative); Leukocyte Esterase Negative (Negative); Nitrite Positive (Negative)
[2023-12-08 09:08] LABS: Epithelial Cells Rare HPF (Negative); RBC >50 HPF (0-2); WBC 0-2 HPF (0-5)
[2023-12-08 09:09] LABS: Bacteria Rare HPF (Negative)
[2023-12-08 09:10] LABS: C & S Indicated? C&S Done As Ordered; Casts 0-2 Hyaline LPF (Negative); Crystals Negative HPF (Negative); Mucus Negative (Negative)
[2023-12-08] MEDS: Tamsulosin 0.4 MG CAPCR PO (09:18)
[2023-12-08] MEDS: Potassium Chloride Liquid 20 MEQ PKT PO (09:18)
[2023-12-08] MEDS: Acetaminophen 500 MG TAB 1000 MG PO (09:18)
[2023-12-08 09:35] VITALS: BP 133/78; PULSE 68; RESP 16; O2SAT 95
== END 2023-12-08 09:37 | disposition home or self-care (01) ==
PROVIDERS: Emergency Provider Emergency Medicine; PCP Nurse Practitioner
DX: R10.32 Left lower quadrant pain (principal); R31.0 Gross hematuria; R11.0 Nausea; Z87.442 Personal history of urinary calculi; E87.6 Hypokalemia
CPT/HCPCS: 80048; 87077; 96361; 96374; 99284; 74176; 81003; 81015; 85025; 87086; 87186; 99283; J2060

== ENCOUNTER 2024-12-06 10:30 | Outpatient (REF) | payer OTHER, SELFPAY ==
[2024-12-06 11:25] LABS: Abs Immature Grans 0.02 10^3/uL (0.0-0.06); Absolute Basophil Count 0.06 10^3/uL (0.0-0.2); Absolute Eosinophil Count 0.08 10^3/uL (0.0-0.7); Absolute Lymphocyte Count 1.54 10^3/uL (1.2-3.4); Absolute Monocyte Count 0.33 10^3/uL (0.1-0.8); Absolute Neutrophil Count 3.61 10^3/uL (1.2-6.7); Basophils % 1.1 %; Eosinophils % 1.4 %; HCT 46.6 % (36.0-46.0); HGB 14.7 g/dL (11.2-15.7); Immature Grans % 0.4 %; Lymphocytes % 27.3 %; MCH 26.9 pg (27.0-33.0); MCHC 31.5 % (32.0-36.0); MCV 85 fL (80-95); Monocytes % 5.9 %; Neutrophils % 63.9 %; Platelet Count 211 10^3/uL (130-400); RBC 5.47 10^6/uL (3.93-5.22); RDW 14.2 % (11.7-14.6); RDW-SD 44.3 fL; WBC 5.64 10^3/uL (4.4-10.8)
[2024-12-06 11:58] LABS: ALT 33 U/L (14-59); AST 19 U/L (15-37); Albumin 4.2 g/dL (3.4-5.0); Alkaline Phosphatase 96 U/L (46-116); Anion Gap 6.9 mmol/L (3-11); BUN 22 mg/dL (7-18); Bilirubin, Total 0.5 mg/dL (0.2-1.0); CO2 29.1 mmol/L (21.0-32.0); CREATININE 0.7 mg/dL (0.55-1.02); Calcium 9.4 mg/dL (8.5-10.1); Calculated LDL 196 mg/dL (<100); Chloride 108 mmol/L (98-107); Cholesterol 292 mg/dL (<200); Estimated GFR 96.52 (mL/min/1.73m2); Glucose 92 mg/dL (74-106); HDL Cholesterol 82 mg/dL (>or=50); Potassium 4.6 mmol/L (3.5-5.1); Sodium 144 mmol/L (136-145); Total Protein 7.3 g/dL (6.4-8.2); Triglyceride 73 mg/dL (<150); Vitamin D 25 Total 15 ng/mL (30-100)
[2024-12-07 15:25] LABS: ANA Interpretation Negative (Negative)
== END 2024-12-06 10:31 | disposition home or self-care (01) ==
LOC: LBN 10:30
PROVIDERS: PCP Nurse Practitioner; Visit Provider Nurse Practitioner
DX: E78.5 Hyperlipidemia, unspecified (principal); K21.9 Gastro-esophageal reflux disease without esophagitis; R79.9 Abnormal finding of blood chemistry, unspecified; R76.8 Other specified abnormal immunological findings in serum
CPT/HCPCS: 80053; 80061; 82306; 85025; 86038

== ENCOUNTER 2025-02-17 10:52 | Emergency (ER) | payer OTHER, MEDICARE, SELFPAY ==
[2025-02-17 10:57] VITALS: BP 154/88; PULSE 86; RESP 20; TEMP 36.7; O2SAT 93
--- NOTE | 2025-02-17 11:00 | DI.CT_ITS ---
Exam(s) CT RENAL COLIC WO EXAM: CT RENAL COLIC WO CLINICAL HISTORY: recent stone removal, L flank pain. TECHNIQUE: Imaging Protocol: Axial computed tomography images with coronal and sagittal reformatted images were created and reviewed. COMPARISON: CT CT RENAL COLIC WO from 12/08/2023 XA XR RETROGRADE IN OR from 01/31/2025 XA XR RETROGRADE IN OR from 02/14/2025 FINDINGS: ABDOMEN: Lung Bases: Normal where visualized. Liver: Normal density. No measurable mass. Gallbladder and biliary tract: No radiodense calculus or biliary ductal dilation. Pancreas: Normal density, no abnormal calcifications or inflammatory process. Spleen: Normal. Kidneys: Normal size, contour and axis.There are 2 stones seen in the distal left ureter. (Series 3, images 74 and 76). There is marked dilatation of the left collecting system through its entire length. There is a nonobstructing stone in the midpole of the left kidney. Adrenal glands: No mass is seen. Lymph nodes: Within normal limits. Abdominal Aorta: Abdominal portion non-dilated. Atherosclerotic calcification is present. PELVIS: Bladder:Symmetric distention, no gross wall thickening. Bowel: There is colonic diverticulosis without evidence of acute diverticulitis. There is no bowel wall thickening or obstruction. Appendix is unremarkable. Peritoneal cavity: No ascites, collection or mesenteric inflammatory response. No free air. Reproductive organs: Unremarkable as visualized. Bones: Within normal limits. Soft Tissues: Within normal limits. IMPRESSION: 1. Persistent marked dilatation of the left renal collecting system. 2. There are 2 tiny calculi seen in the distal left ureter. 3. Left nephrolithiasis. RADIATION DOSE DELIVERED: 371.56mGy.cm Total DLP DATA REPOSITORY: All CT scans at this facility are submitted to the National Radiology Data Registry (NRDR) Dose Index Registry (DIR) with the [employer] (ACR). RADIATION OPTIMIZATION: All CT scans at this facility use at least one of these dose optimization techniques: automated exposure control; mA and/or kV adjustment per patient size (includes targeted exams where dose is matched to clinical indication); or iterative reconstruction.
--- NOTE | 2025-02-17 11:07 | W.ED.GENAD ---
Discharge Plan Disposition Patient Disposition: Home Condition: Stable Discharge Details Clinical Impression: Left ureteral calculus Primary Care Provider: Neela Orantes ED Provider: Kendall Pat Home Meds and New Rx's Prescriptions: Continued albuterol sulfate 90 mcg/actuation HFA aerosol inhaler 2 puff Inhalation Q4H PRN Qty: 1 12RF Rx Instructions: with SPACER for reactive airway, wheezing famotidine 20 mg tablet 20 mg PO DAILY Qty: 90 3RF omeprazole 20 mg capsule,delayed release(DR/EC) 20 mg PO DAILY Qty: 90 3RF ergocalciferol (vitamin D2) 1,250 mcg (50,000 unit) capsule 1,250 mcg PO QWEEK Qty: 12 3RF lorazepam 0.5 mg tablet 0.5 mg PO Q8H PRN (Reason: anxiety) Qty: 14 0RF beclomethasone dipropionate 40 mcg/actuation HFA aerosol breath activated 1 inh inhalation BID Qty: 10.6 5RF Patient Comments: Pt reports using this more as PRN, with some days being BID Rx Instructions: administer with spacer oxycodone 5 mg tablet 5 mg PO Q6H PRN (Reason: pain) Qty: 10 0RF phenazopyridine [Pyridium] 200 mg tablet 200 mg PO TID PRN (Reason: pain) Qty: 12 0RF cefpodoxime 200 mg tablet 200 mg PO BID Qty: 6 0RF Rx Instructions: must administer with a meal/food acetaminophen [8 Hour Pain Reliever] 650 mg tablet extended release 650 mg PO Q8H PRN ketorolac 10 mg tablet 10 mg PO Q6H Patient Comments: TAKE ONE TABLET BY MOUTH THREE TIMES DAILY NEEDED FOR FIVE DAYS. DO NOT USE OTHER NSAIDS WHILE TAKING THIS MEDICATION. Discharge Instructions Instructions: Ondansetron, Kidney Stone, Adult ED Additional Instructions: You were seen in the ER for your continued pain after kidney stone retrieval. There are two TINY distal L ureteral stones- these should pass, we provided IV fluids to help this process today. I reviewed your imaging and lab results with Dr. Samayoa- he would like you to call their office tomorrow morning. Please continue taking regular doses of Tylenol and Toradol, in alternating fashion every 6 hours as we discussed. That means you take Tylenol, then 3 hours later- take Toradol, then 3 hours later, back to Tylenol- so that each medicine is 6 hours apart from its last dose. Split your oxycodone in half and take that every 4-6-8 hours as needed for breakthrough pain. Keep well hydrated. Use the provided ondansetron dissolved under your tongue 20-30 minutes before a meal. Please return to the ER immediately for any fevers, severe increase in pain and nausea, and lack of urine output. Referrals: [facility] [Provider Group] Neela Orantes NP [Primary Care Provider, Medicine] Discharge Data Discharge Date/Time-TO BE ENTERED AT DEPARTURE: 02/17/25 13:57 HPI General Date/Time Provider Initiated Documentation: 02/17/25 11:07. HPI Narrative: 65 year-old female presents to ED today by POV/ambulating with her with a chief complaint of continued L flank pain, nausea from pain, dysuria after kidney stone retrieval with Dr. Queen this past , 3 days ago. Quality described as very painful in the low L back and LLQ abdomen, no radiation to vomiting, cough, fever, shortness of breath, chest pain. Severity is described as severe. Palliating factors include oxycodone did improve pain- she has not been taking Tylenol and Toradol on schedule, missed doses. Provoking factors include certain movements. Events leading up to the incident/Associated Symptoms: Patient has had this procedure on opposite side in remote past. Patient not anticoagulated. Related Data Home Medications ?Medication ?Instructions ?Recorded ?Confirmed ergocalciferol (vitamin D2) 1,250 1,250 mcg PO QWEEK #12 caps 09/29/22 02/17/25 mcg (50,000 unit) capsule acetaminophen 650 mg 650 mg PO Q8H PRN 12/05/23 02/17/25 tablet,extended release (8 Hour Pain Reliever) lorazepam 0.5 mg tablet 0.5 mg PO Q8H PRN anxiety #14 tabs 08/28/24 02/17/25 albuterol sulfate 90 mcg/actuation 2 puff inhalation Q4H PRN #1 unit 09/05/24 02/17/25 aerosol inhaler famotidine 20 mg tablet 20 mg PO DAILY #90 tabs 09/05/24 02/17/25 omeprazole 20 mg capsule,delayed 20 mg PO DAILY #90 caps 09/05/24 02/17/25 release beclomethasone dipropionate 40 1 inh inhalation BID #10.6 grams 11/05/24 02/17/25 mcg/actuation HFA breath activated aerosol ketorolac 10 mg tablet 10 mg PO Q6H 01/30/25 02/17/25 cefpodoxime 200 mg tablet 200 mg PO BID antibiotic #6 tabs 02/14/25 02/17/25 oxycodone 5 mg tablet 5 mg PO Q6H PRN pain #10 tabs 02/14/25 02/17/25 phenazopyridine 200 mg tablet 200 mg PO TID PRN pain #12 tabs 02/14/25 02/17/25 (Pyridium) Previous Rx's ?Medication ?Instructions ?Recorded ergocalciferol (vitamin D2) 1,250 1,250 mcg PO QWEEK #12 caps 09/29/22 mcg (50,000 unit) capsule lorazepam 0.5 mg tablet 0.5 mg PO Q8H PRN anxiety #14 tabs 08/28/24 albuterol sulfate 90 mcg/actuation 2 puff inhalation Q4H PRN #1 unit 09/05/24 aerosol inhaler famotidine 20 mg tablet 20 mg PO DAILY #90 tabs 09/05/24 omeprazole 20 mg capsule,delayed 20 mg PO DAILY #90 caps 09/05/24 release beclomethasone dipropionate 40 1 inh inhalation BID #10.6 grams 11/05/24 mcg/actuation HFA breath activated aerosol cefpodoxime 200 mg tablet 200 mg PO BID antibiotic #6 tabs 02/14/25 oxycodone 5 mg tablet 5 mg PO Q6H PRN pain #10 tabs 02/14/25 phenazopyridine 200 mg tablet 200 mg PO TID PRN pain #12 tabs 02/14/25 (Pyridium) Allergies Allergy/AdvReac Type Severity Reaction Status Date / Time Sulfa (Sulfonamide Allergy Unknown Rash Verified 02/17/25 11:01 Antibiotics) morphine AdvReac Severe Psychosis Verified 02/17/25 11:01 codeine AdvReac Intermediate jittery Verified 02/17/25 11:01 General Stated Complaint: FlankPain KLARISSA: 3 Review of Systems All systems reviewed & are unremarkable except as noted in HPI and below Exam Narrative Exam Narrative: GENERAL APPEARANCE: Well-nourished, non-toxic, awake and alert, atraumatic, no acute distress. SKIN: Warm, pink, dry, intact, without rashes/lesions/ulcerations. HEAD: Normocephalic, atraumatic, normal hair distribution for gender/age. EYES: Normal conjunctiva, no exudates on lids/lashes. ENT: Nares patent, no circumoral cyanosis, no facial swelling NECK: Supple, trachea midline, painless cervical ROM. LUNGS/CHEST: Lungs CTA bilaterally, non-labored respirations, normal A/P diameter, symmetrical expansion, no chest wall deformity HEART (CV/PV): Regular rate and rhythm without murmur, no peripheral edema, no JVD. ABDOMEN: Soft, non-distended, no guarding, left CVA tenderness, left lower quadrant tenderness. MSK: Normal ROM, no swelling/deformity to bilateral UEs or LEs, moving all extremities without weakness, no cyanosis, spine midline without tenderness, normal curvature. NEURO: Mental Status AAOx4 - alert to person, place, time, events No facial droop, no forehead involvement. Motor: No focal weakness - strength 5/5 in bilateral UEs and LEs, proximal and distal, symmetric. Sensory: sensation intact to light touch globally. Gait normal: patient ambulated without ataxia into ED room. PSYCH: euthymic, cooperative, pleasant, appropriate speech Course Vital Signs Vital signs: Vital Signs Temperature 36.7 C 02/17/25 10:57 Pulse 86 02/17/25 10:57 Respiratory Rate 20 02/17/25 10:57 Blood Pressure 154/88 H 02/17/25 10:57 Pulse Oximetry 93 02/17/25 10:57 Temperature 36.7 C 02/17/25 10:57 Temperature Source Oral 02/17/25 10:57 Pulse 86 02/17/25 10:57 Respiratory Rate 20 02/17/25 10:57 Blood Pressure 154/88 H 02/17/25 10:57 Blood Pressure Position Sitting 02/17/25 10:57 Pulse Oximetry 93 02/17/25 10:57 Oxygen Delivery Method Room Air 02/17/25 10:57 Oxygen Flow Rate 0 02/17/25 10:57 Pain Level 6 02/17/25 10:57 Medical Decision Making This dictation utilizes [id number] dictation software and may contain unedited grammatical errors. 65 year-old female presents to ED today by POV/ambulating with her with a chief complaint of continued L flank pain, nausea from pain, dysuria after kidney stone retrieval with Dr. Queen this past , 3 days ago. Quality described as very painful in the low L back and LLQ abdomen, no radiation to vomiting, cough, fever, shortness of breath, chest pain. Severity is described as severe. Palliating factors include oxycodone did improve pain- she has not been taking Tylenol and Toradol on schedule, missed doses. Provoking factors include certain movements. Events leading up to the incident/Associated Symptoms: Patient has had this procedure on opposite side in remote past. Patients' medical history: History of UTIs, renal stones, GERD. Family and social history: Noncontributory. Pertinent exam findings / vital signs include L CVA tenderness to percussion, LLQ tenderness, no Rovsing's, VSS, nontoxic, afebrile, benign cardiopulmonary exam. Differential / pathologies of concern include ureteral stone/renal colic, UTI, sepsis. Diagnostic studies of: -CBC, CMP, UA, Lactate, Lipase, CT Renal Colic wo Contrast. -CBC shows no leukocytosis, no anemia -CMP shows no SACHA, no other abnormals -Lactate neg -Lipase WNL -UA shows +nitrites, sent order for culture -CT Renal Colic shows two tiny distal L ureteral calculi Interventions of: -1g IVP APAP, 15mg IVP ketorolac, 2L IVF NS, pt refused tamsulosin. ED Course/Assessment/Plan: 65-year-old female who had kidney stone retrieval with Dr. Samayoa last presents with continued pain and nausea, has not been taking adequate doses of her Tylenol and Toradol and not on tamsulosin, there are 2 pinpoint ureteral stones on the left likely causing her symptoms, she has been on cefpodoxime since the procedure and has a scant amount of nitrites on her urine with 0-2 WBCs do not suspect infected kidney stone at this time and I did discuss this with Dr. Samayoa, he recommends that she be sent home and perform adequate pain control and call the office tomorrow, I did load her with 2 L of IV fluids and reassurance that the tiny pinpoint stones would likely pass. Findings not consistent with infected kidney stone, severe hydronephrosis, sepsis. Disposition of Left Ureteral Calculi. Patient verbalized understanding of the plan and return to ED criteria and engaged in shared decision making. Medical Records Medical records reviewed: Yes I reviewed the patient's medical records. Imaging Data Radiologic Study: Attestation: I personally reviewed and interpreted this imaging study as follows: Imaging: CT Scan Radiologist's impression: EXAM: CT RENAL COLIC WO CLINICAL HISTORY: recent stone removal, L flank pain. TECHNIQUE: Imaging Protocol: Axial computed tomography images with coronal and sagittal reformatted images were created and reviewed. COMPARISON: CT CT RENAL COLIC WO from 12/08/2023 XA XR RETROGRADE IN OR from 01/31/2025 XA XR RETROGRADE IN OR from 02/14/2025 FINDINGS: ABDOMEN: Lung Bases: Normal where visualized. Liver: Normal density. No measurable mass. Gallbladder and biliary tract: No radiodense calculus or biliary ductal dilation. Pancreas: Normal density, no abnormal calcifications or inflammatory process. Spleen: Normal. Kidneys: Normal size, contour and axis.There are 2 stones seen in the distal left ureter. (Series 3, images 74 and 76). There is marked dilatation of the left collecting system through its entire length. There is a nonobstructing stone in the midpole of the left kidney. Adrenal glands: No mass is seen. Lymph nodes: Within normal limits. Abdominal Aorta: Abdominal portion non-dilated. Atherosclerotic calcification is present. PELVIS: Bladder:Symmetric distention, no gross wall thickening. Bowel: There is colonic diverticulosis without evidence of acute diverticulitis. There is no bowel wall thickening or obstruction. Appendix is unremarkable. Peritoneal cavity: No ascites, collection or mesenteric inflammatory response. No free air. Reproductive organs: Unremarkable as visualized. Bones: Within normal limits. Soft Tissues: Within normal limits. IMPRESSION: 1. Persistent marked dilatation of the left renal collecting system. 2. There are 2 tiny calculi seen in the distal left ureter. 3. Left nephrolithiasis. Lab Data Lab results reviewed: Yes I reviewed the patient's lab results. Labs: Laboratory Tests Range/Units 02/17/25 02/17/25 11:09 11:40 WBC (4.4-10.8) 10^3/uL 7.21 RBC (3.93-5.22) 10^6/uL 5.29 H Hgb (11.2-15.7) g/dL 14.0 Hct (36.0-46.0) % 45.0 MCV (80-95) fL 85 MCH (27.0-33.0) pg 26.5 L MCHC (32.0-36.0) % 31.1 L RDW (11.7-14.6) % 13.1 Plt Count (130-400) 10^3/uL 181 MPV (8.0-11.0) fL 9.4 Immature Gran % % 0.3 Neutrophils % % 75.0 Lymphocytes % % 14.4 Monocytes % % 5.1 Eosinophils % % 4.9 Basophils % % 0.3 Nucleated RBC % (0.0-0.3) % 0.0 Absolute Neutrophils (1.2-6.7) 10^3/uL 5.41 Absolute Lymphocytes (1.2-3.4) 10^3/uL 1.04 L Absolute Monocytes (0.1-0.8) 10^3/uL 0.37 Absolute Eosinophils (0.0-0.7) 10^3/uL 0.35 Absolute Basophils (0.0-0.2) 10^3/uL 0.02 VBG Lactate (<or=2.0) mmol/L 0.9 Sodium (136-145) mmol/L 142 Potassium (3.5-5.1) mmol/L 3.6 Chloride (98-107) mmol/L 106 Carbon Dioxide (21.0-32.0) mmol/L 27.4 Anion Gap (3-11) mmol/L 8.6 BUN (7-18) mg/dL 17 Creatinine (0.55-1.02) mg/dL 0.9 Est GFR (CKD-EPI 2020) (mL/min/1.73m2) 70.95 Glucose (74-106) mg/dL 91 Calcium (8.5-10.1) mg/dL 8.9 Total Bilirubin (0.2-1.0) mg/dL 0.7 AST (15-37) U/L 15 ALT (14-59) U/L 18 Alkaline Phosphatase (46-116) U/L 87 Total Protein (6.4-8.2) g/dL 6.7 Albumin (3.4-5.0) g/dL 3.4 Lipase (<78) U/L 21 Urine Color (Yellow) Yellow Urine Clarity (Clear) Sl Cloudy Urine pH (5-8) 7.0 Ur Specific [place] (1.005-1.025) 1.015 Urine Protein (Neg-Trace) mg/dL Negative Urine Ketones (Negative) mg/dL Negative Urine Blood (Negative) Large H Urine Nitrite (Negative) Positive H Urine Bilirubin (Negative) Negative Urine Urobilinogen (Up to 0.2) mg/dL 0.2 Ur Leukocyte Esterase (Negative) Negative Urine RBC (0-2) HPF >50 H Urine WBC (0-5) HPF 0-2 Ur Epithelial Cells (Negative) HPF Rare Urine Crystals (Negative) HPF Negative Urine Bacteria (Negative) HPF Rare Urine Casts (Negative) LPF Negative Urine Mucus (Negative) Negative Ur Culture Indicated? No Urine Glucose (Negative) mg/dL Negative Quality:SDOH Health Related Social Needs: Health related social needs lonely/isolated PFSH All Active Problems (Updated 02/17/25 @ 13:01 by MONALISA Duenas) Left ureteral calculus (Acute) Menopause (Chronic) Smoker (Chronic) a. Half pack a day. Adhesive capsulitis of left shoulder (Acute 09/16/17) Arthralgia of left acromioclavicular joint (Acute 10/14/17) Knee pain, left anterior (Acute 04/29/15) Patellar tendinitis of left knee (Acute 05/22/15) Sciatica (Acute 03/08/11) WITH LEFT WEAKNESS Trochanteric bursitis of left hip (Acute 05/22/15) Joint pain (Acute) Screening for cholesterol level (Acute) GERD (gastroesophageal reflux disease) (Chronic) Abnormal EKG (Acute) Hyperlipidemia (Acute) UTI (urinary tract infection) (Acute) Medical History Ureterolithiasis Left ureteral stone Right ureteral stone (04/07/16) Mild intermittent reactive airway disease (07/08/15) flovent 07/2013, intol albuterol (escobar), post infection GERD (gastroesophageal reflux disease) Nephrolithiasis Surgical History Hx of cystoscopy 3x kidney stone removal History of section H/O breast augmentation Social History Smoking/Tobacco Use Status: Current-Occasional Tobacco Type: cigarettes Smoking risk assessment performed?: Yes Alcohol Intake: current Alcohol Intake frequency: 0-2 drinks per day Alcohol type: wine Drug use: Never Substance use type: does not use Housing: house Number of Children: 2 current occupation: works at [employer] What type of physical activity do you participate in: none Seatbelt use: always Drive intox or ride w/intox class b driver: No Working smoke detector in home: Yes Fire extinguisher in home: Yes Carbon monox detector in home: Yes
[2025-02-17 11:08] VITALS: BP 154/88; PULSE 86; RESP 20; TEMP 36.7; O2SAT 93
[2025-02-17 11:20] LABS: Bilirubin Negative (Negative); Blood Large (Negative); Clarity Sl Cloudy (Clear); Glucose Negative (Negative); Ketones Negative (Negative); Leukocyte Esterase Negative (Negative); Nitrite Positive (Negative); Specific Gravity 1.015 (1.005-1.025); Urobilinogen 0.2 mg/dL (Up to 0.2)
[2025-02-17 11:28] LABS: Bacteria Rare HPF (Negative); C & S Indicated? No; Casts Negative LPF (Negative); Crystals Negative HPF (Negative); Epithelial Cells Rare HPF (Negative); Mucus Negative (Negative); RBC >50 HPF (0-2); WBC 0-2 HPF (0-5)
[2025-02-17] MEDS: Normal Saline 1,000 ML 1000 ML IV ×2 (11:43→13:01)
[2025-02-17] MEDS: Ketorolac 15 MG/ML VIAL IVP (11:45)
[2025-02-17] MEDS: ACETAMINOPHEN 1,000 MG/100 ML BAG 400 MG IVPB (11:46)
[2025-02-17 11:47] LABS: Lactate 0.9 mmol/L (<or=2.0)
[2025-02-17 11:50] LABS: Abs Immature Grans 0.02 10^3/uL (0.0-0.06); Absolute Basophil Count 0.02 10^3/uL (0.0-0.2); Absolute Eosinophil Count 0.35 10^3/uL (0.0-0.7); Absolute Lymphocyte Count 1.04 10^3/uL (1.2-3.4); Absolute Monocyte Count 0.37 10^3/uL (0.1-0.8); Absolute Neutrophil Count 5.41 10^3/uL (1.2-6.7); Basophils % 0.3 %; Eosinophils % 4.9 %; Immature Grans % 0.3 %; Lymphocytes % 14.4 %; MCH 26.5 pg (27.0-33.0); MCHC 31.1 % (32.0-36.0); MCV 85 fL (80-95); MPV 9.4 fL (8.0-11.0); Monocytes % 5.1 %; Platelet Count 181 10^3/uL (130-400); RBC 5.29 10^6/uL (3.93-5.22); RDW 13.1 % (11.7-14.6); RDW-SD 40.6 fL; WBC 7.21 10^3/uL (4.4-10.8)
[2025-02-17 12:05] LABS: ALT 18 U/L (14-59); AST 15 U/L (15-37); Albumin 3.4 g/dL (3.4-5.0); Alkaline Phosphatase 87 U/L (46-116); Anion Gap 8.6 mmol/L (3-11); BUN 17 mg/dL (7-18); Bilirubin, Total 0.7 mg/dL (0.2-1.0); CO2 27.4 mmol/L (21.0-32.0); CREATININE 0.9 mg/dL (0.55-1.02); Calcium 8.9 mg/dL (8.5-10.1); Chloride 106 mmol/L (98-107); Estimated GFR 70.95 (mL/min/1.73m2); Glucose 91 mg/dL (74-106); Lipase 21 U/L (<78); Potassium 3.6 mmol/L (3.5-5.1); Sodium 142 mmol/L (136-145); Total Protein 6.7 g/dL (6.4-8.2)
[2025-02-17 13:42] VITALS: BP 160/75; PULSE 66; TEMP 36.6
== END 2025-02-17 13:57 | disposition home or self-care (01) ==
PROVIDERS: Emergency Provider Physician Assistant; PCP Nurse Practitioner
DX: N20.1 Calculus of ureter (principal); E78.5 Hyperlipidemia, unspecified; F17.210 Nicotine dependence, cigarettes, uncomplicated
CPT/HCPCS: 80053; 83690; 96361; 96365; 96375; 99284; 74176; 81003; 81015; 83605; 85025; 87086; J0131; J1885

== ENCOUNTER → 2025-07-19 08:05 | Outpatient (BNVA) | payer MEDICARE, OTHER, SELFPAY | PROVIDERS: PCP Nurse Practitioner Family; Referring Provider Nurse Practitioner; Visit Provider Urology | DX: N20.0 Calculus of kidney (principal) | CPT/HCPCS: 99213 ==